=== PATIENT | female | born 1960 | race Hispanic/Latino ===

== ENCOUNTER 2020-06-29 09:24 | Observation (INO) | payer SELFPAY ==
[2020-06-29] MEDS ORDERED: ASPIRIN 325 MG TAB PO ONE (10:41)
[2020-06-29] MEDS ORDERED: GABAPENTIN 300 MG CAP PO ONE (10:53)
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
--- NOTE | 2020-06-29 11:18 | XRay Report ---
CHEST 1 VIEW INDICATION: Chest Pain. COMPARISON: None FINDINGS: Support devices: None. Heart: Within normal limits. Lungs/Pleura: No acute air space or interstitial disease. Additional findings: None. IMPRESSION: No acute findings. Signer Name: Lamine Soni Jr, MD Signed: 06/29/2020 11:14 AM Workstation Name: [id number]
[2020-06-29 11:30] LABS: Basophils # (Auto) 0.1 K/mm3 (0.0-0.1); Basophils % (Auto) 1.2 % (0.0-1.8); Eosinophils # (Auto) 0.2 K/mm3 (0.0-0.4); Hematocrit 43.8 % (30.3-42.9); Lymphocytes # (Auto) 2.2 K/mm3 (1.2-5.4); Mean Corpuscular HGB Conc 34 % (30-34); Mean Corpuscular Volume 89 fl (79-97); Monocytes # (Auto) 0.4 K/mm3 (0.0-0.8); Monocytes % (Auto) 4.8 % (0.0-7.3); Red Blood Count 4.94 M/mm3 (3.65-5.03); Red Cell Distribution Width 15.7 % (13.2-15.2)
[2020-06-29 11:31] LABS: INR 0.93 (0.87-1.13)
[2020-06-29 11:36] LABS: Chol/HDL Ratio 8.11 %
[2020-06-29 11:38] LABS: Alanine Aminotransferase 13 units/L (7-56); Albumin 4.5 g/dL (3.9-5); BUN/Creatinine Ratio 19; Blood Urea Nitrogen 17 mg/dL (7-17); Calcium 8.5 mg/dL (8.4-10.2); Hemolysis Index 3
[2020-06-29 12:18] VITALS: BP 138/88
[2020-06-29] MEDS ORDERED: ONDANSETRON 4 MG/2 ML INJ IV ONE (12:24)
[2020-06-29] MEDS ORDERED: HYDROmorphone 1 MG/1 ML INJ IV ONE (12:24)
[2020-06-29 12:35] LABS: Platelet Count 201 K/mm3 (140-440)
[2020-06-29 12:36] LABS: Free T4 (Free Thyroxine) < 0.10 ng/dL (0.76-1.46)
[2020-06-29] MEDS ORDERED: PANTOPRAZOLE 40 MG TAB PO ONE (13:16)
[2020-06-30] MEDS ORDERED: ASPIRIN 81 MG TAB CHEW PO SCH (10:00)
== END 2020-06-29 16:20 | disposition home or self-care (01) ==
LOC: ED 09:24 → 4A 13:08
PROVIDERS: ADMIT Internal Medicine; ATTEND Internal Medicine
DX: R07.89 Other chest pain (principal); E78.5 Hyperlipidemia, unspecified; E03.9 Hypothyroidism, unspecified; J44.9 Chronic obstructive pulmonary disease, unspecified; I10 Essential (primary) hypertension; F17.200 Nicotine dependence, unspecified, uncomplicated; Z91.14 Patient's other noncompliance with medication regimen; Z79.82 Long term (current) use of aspirin
CPT/HCPCS: 36415; 71045; 80053; 80061; 84439; 84443; 84484; 85025; 85610; 93005; 96374; 96375; 99285; G0378; J1170; J2405

== ENCOUNTER 2020-12-26 12:42 | Emergency (ER) | payer SELFPAY ==
--- NOTE | 2020-12-26 15:06 | Event Note ---
ED Screening Note Date of service: 12/26/20 Time: 15:03 ED Screening Note: 60-year-old female patient with history of hepatitis B and thyroid cancer presents to the emergency department with complaints of fever, myalgias, and syncope today. Patient states her temperature was 101 degrees at home yesterday. 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 No current steroid or antibiotic use. Patient states she has not taken her hepatitis B medications or her thyroid medications in several months. She is attributing her diffuse body aches to degenerative joint disease. States she passed out while she was at work earlier today. Hypertensive in triage. General: Awake, appropriately interactive, no acute distress. Neck: Supple. Full range of motion intact. Cardiovascular: Normal peripheral perfusion. Pulmonary: No respiratory distress. Patient is speaking normally without use of accessory muscles. Skin: No apparent rashes or lesions. Neurological: No facial asymmetry. Speech is clear. Follows commands. Patient is alert and oriented. Musculoskeletal: Moves all four extremities spontaneously with normal range of motion. Psych: Cooperative. Appropriate mood and affect. I have greeted and performed a focused rapid initial assessment of this patient. A comprehensive ED assessment and evaluation of the patient, analysis of all test results, and completion of the medical decision-making process will be conducted by additional ED providers. This initial assessment/diagnostic orders/clinical plan/treatment(s) is/are subject to change based on patients health status, clinical progression and re-assessment. Further treatment and workup at subsequent clinical provider's discretion. Patient/guardian urged not to elope from the ED as their condition may be serious if not clinically assessed and managed.
[2020-12-26 15:48] LABS: Basophils # (Auto) 0.1 K/mm3 (0.0-0.1); Basophils % (Auto) 1.3 % (0.0-1.8); Eosinophils # (Auto) 0.6 K/mm3 (0.0-0.4); Hematocrit 41.5 % (30.3-42.9); Hemoglobin 14.4 gm/dl (10.1-14.3); Lymphocytes # (Auto) 3.7 K/mm3 (1.2-5.4); Lymphocytes % (Auto) 40.4 % (13.4-35.0); Mean Corpuscular HGB Conc 35 % (30-34); Mean Corpuscular Volume 91 fl (79-97); Monocytes # (Auto) 0.3 K/mm3 (0.0-0.8); Monocytes % (Auto) 3.5 % (0.0-7.3); Red Blood Count 4.56 M/mm3 (3.65-5.03); Red Cell Distribution Width 14.6 % (13.2-15.2)
--- NOTE | 2020-12-26 15:49 | XRay Report ---
CHEST 2 VIEWS INDICATION / CLINICAL INFORMATION: syncope. COMPARISON: One view of the chest from 06/29/2020. FINDINGS: SUPPORT DEVICES: None. HEART / MEDIASTINUM: No significant abnormality. LUNGS / PLEURA: Clear lungs. No significant pleural effusion. No pneumothorax. ADDITIONAL FINDINGS: Moderate degenerative changes are present throughout the spine. IMPRESSION: 1. No acute abnormality of the chest. Signer Name: Cory Tucker MD Signed: 12/26/2020 3:24 PM Workstation Name: [email or web address]
[2020-12-26 16:03] LABS: Platelet Count 170 K/mm3 (140-440)
[2020-12-26 16:47] LABS: Alanine Aminotransferase 12 units/L (7-56); Albumin 4.6 g/dL (3.9-5); BUN/Creatinine Ratio 15; Blood Urea Nitrogen 16 mg/dL (7-17); Hemolysis Index 4
[2020-12-26] MEDS ORDERED: ONDANSETRON 4 MG/2 ML INJ IM ONE (23:34)
[2020-12-26] MEDS ORDERED: MORPHINE 4 MG/1 ML INJ IM ONE (23:34)
--- NOTE | 2020-12-26 23:39 | Emergency Department Report ---
ED General Adult HPI - General Chief complaint: Pain General Stated complaint: VOMITTING/NAUSEA/HEP B SYMPTOMS Time Seen by Provider: 12/26/20 18:23 Source: patient Mode of arrival: Ambulatory Limitations: No Limitations - History of Present Illness Initial comments: Patient is 60 years old female with history of degenerative disc disease and thyroid cancer. Patient stated that she did not see a doctor recently. Patient presented to the ER complaining of generalized body ache and joint pain for the last 2 to 3 days. Patient stated that she works as [employer] and she stand a lot in hot environment. Patient stated that she used to take gabapentin 600 mg three times a day and that usually help a lot with her pain but she is not having this medication anymore. Patient denied any headache, neck pain, nausea or vomiting. No focal weakness numbness or tingling sensation. Patient denied any chest pain or palpitation. - Related Data Previous Rx's Medication Instructions Recorded Last Taken Type Aspirin [Adult Aspirin] 81 mg PO DAILY #30 tablet. 06/29/20 Unknown Rx Elavil 150 mg PO DAILY #30 06/29/20 Unknown Rx Gabapentin 600 mg PO TID #30 06/29/20 Unknown Rx Levothyroxine 175 mcg PO DAILY #30 06/29/20 Unknown Rx Simvastatin 40 mg PO QHS #30 tablet 06/29/20 Unknown Rx amLODIPine 5 mg PO DAILY #30 tab 06/29/20 Unknown Rx Allergies Allergy/AdvReac Type Severity Reaction Status Date / Time cephalexin [From Keflex] Allergy Unknown Verified 06/29/20 10:21 ketorolac [From Toradol] Allergy Unknown Verified 06/29/20 11:33 morphine Allergy Unknown Verified 06/29/20 10:21 naproxen Allergy Unknown Verified 06/29/20 11:33 Penicillins Allergy Unknown Verified 06/29/20 10:21 tramadol [From Ultram] Allergy Unknown Verified 06/29/20 11:33 ED Review of Systems ROS: Stated complaint: VOMITTING/NAUSEA/HEP B SYMPTOMS Other details as noted in HPI Comment: All other systems reviewed and negative Constitutional: denies: chills, fever Respiratory: denies: cough, shortness of breath, SOB with exertion Cardiovascular: denies: chest pain, palpitations Gastrointestinal: denies: abdominal pain, nausea, vomiting Musculoskeletal: arthralgia, myalgia Neurological: denies: headache, weakness, numbness, paresthesias, confusion, abnormal gait ED Past Medical Hx - Past Medical History Hx Hypertension: Yes Hx COPD: Yes Additional medical history: Hypothyroidism Degenrativr Disc Disease - Surgical History Additional Surgical History: hysterectomy - Social History Smoking Status: Current Every Day Smoker Substance Use Type: None - Medications Home Medications: Home Medications Medication Instructions Recorded Confirmed Last Taken Type Aspirin [Adult Aspirin] 81 mg PO DAILY #30 tablet. 06/29/20 Unknown Rx Elavil 150 mg PO DAILY #30 06/29/20 Unknown Rx Gabapentin 600 mg PO TID #30 06/29/20 Unknown Rx Levothyroxine 175 mcg PO DAILY #30 06/29/20 Unknown Rx Simvastatin 40 mg PO QHS #30 tablet 06/29/20 Unknown Rx amLODIPine 5 mg PO DAILY #30 tab 06/29/20 Unknown Rx ED Physical Exam - General Limitations: No Limitations General appearance: alert, in no apparent distress - Head Head exam: Present: atraumatic, normocephalic, normal inspection - Eye Eye exam: Present: normal appearance, PERRL - ENT ENT exam: Present: normal exam, normal orophraynx, mucous membranes moist - Neck Neck exam: Present: normal inspection, full ROM. Absent: tenderness, meningismus - Respiratory Respiratory exam: Present: normal lung sounds bilaterally - Cardiovascular Cardiovascular Exam: Present: regular rate, normal rhythm, normal heart sounds - GI/Abdominal GI/Abdominal exam: Present: soft, normal bowel sounds. Absent: distended, tenderness, guarding, rebound, rigid, organomegaly, mass, bruit, pulsatile mass, hernia - Extremities Exam Extremities exam: Present: normal inspection, full ROM, normal capillary refill. Absent: tenderness - Back Exam Back exam: Present: normal inspection, full ROM. Absent: CVA tenderness (R), CVA tenderness (L) - Neurological Exam Neurological exam: Present: alert, oriented X3, CN II-XII intact - Psychiatric Psychiatric exam: Present: normal mood - Skin Skin exam: Present: warm, intact, normal color ED Course Vital Signs 12/26/20 12/27/20 13:59 00:20 Temperature 98.7 F 98.7 F Pulse Rate 65 69 Respiratory 18 16 Rate Blood Pressure 174/101 Blood Pressure 149/80 [Right] O2 Sat by Pulse 99 96 Oximetry ED Medical Decision Making - Lab Data Result diagrams: 12/26/20 15:05 04/12/21 15:05 - Radiology Data Radiology results: report reviewed - Medical Decision Making Patient is 60 years old female with history of degenerative disc disease and thyroid cancer. Patient stated that she did not see a doctor recently. Patient presented to the ER complaining of generalized body ache and joint pain for the last 2 to 3 days. Patient stated that she works as [employer] and she stand a lot in hot environment. Patient stated that she used to take gabapentin 600 mg three times a day and that usually help a lot with her pain but she is not having this medication anymore. Patient denied any headache, neck pain, nausea or vomiting. No focal weakness numbness or tingling sensation. Patient denied any chest pain or palpitation. Labs reviewed and showed CK of 750 which is consistent with patient history of heat exhaustion. Patient also found to have a TSH of 100 indicating severe hypothyroidism. Patient started on Synthroid and advised to follow-up with primary care physician in the next 2 to 3 days and to return to the ER if she develop any new symptoms. Critical care attestation.: If time is entered above; I have spent that time in minutes in the direct care of this critically ill patient, excluding procedure time. ED Disposition Clinical Impression: Acute pain, Hypothyroid Disposition: DC-01 TO HOME OR SELFCARE Is pt being admited?: No Condition: Stable Instructions: Hypothyroidism, Acute Pain, Adult Referrals: [facility] [Provider Group] - 3-5 Days
[2020-12-27 00:27] VITALS: BP 149/80
[2020-12-27 00:49] LABS: Free T4 (Free Thyroxine) 0.1 ng/dL (0.76-1.46)
[2020-12-27] MEDS ORDERED: GABAPENTIN 300 MG CAP PO ONE (01:26)
== END 2020-12-27 03:10 | disposition home or self-care (01) ==
LOC: ED 12:42
DX: E03.9 Hypothyroidism, unspecified (principal); F17.200 Nicotine dependence, unspecified, uncomplicated; I10 Essential (primary) hypertension; J44.9 Chronic obstructive pulmonary disease, unspecified; Z79.899 Other long term (current) drug therapy; Z88.0 Allergy status to penicillin; Z88.8 Allergy status to other drugs, medicaments and biological substances; Z90.710 Acquired absence of both cervix and uterus
CPT/HCPCS: 36415; 71046; 80053; 82550; 83735; 84100; 84439; 84443; 84484; 85025; 96372; 99284; J2270; J2405

== ENCOUNTER 2021-02-03 12:41 | Emergency (ER) | payer SELFPAY ==
[2021-02-03 13:07] VITALS: BP 118/76
--- NOTE | 2021-02-03 14:04 | XRay Report ---
CHEST 2 VIEWS INDICATION: cough. COMPARISON: 12/26/2020 FINDINGS: Support devices: None. Heart: Within normal limits. Lungs/pleura: No acute air space or interstitial disease. No pneumothorax. Additional findings: None. IMPRESSION: No acute findings. Signer Name: Lamine Soni Jr, MD Signed: 02/03/2021 2:00 PM Workstation Name: [id number]
--- NOTE | 2021-02-03 16:20 | Emergency Department Report ---
ED General Adult HPI - General Chief complaint: Upper Respiratory Infection Stated complaint: SOB/FEVER/WEAKNESS/CP/COUGH Time Seen by Provider: 02/03/21 13:42 Source: patient Mode of arrival: Ambulatory Limitations: No Limitations - History of Present Illness Initial comments: 60-year-old female patient presents with complaints of cough, fever, and chills x3 days. She states a history of COPD and asthma and believes she is having a COPD exacerbation. She states she has also been wheezing. No hemoptysis or shortness of breath or chest pain per patient. She does admit to a fever of 102. Patient also states she believes she has lost her sense of taste. - Related Data Previous Rx's Medication Instructions Recorded Last Taken Type Aspirin [Adult Aspirin] 81 mg PO DAILY #30 tablet. 06/29/20 Unknown Rx Elavil 150 mg PO DAILY #30 06/29/20 Unknown Rx Gabapentin 600 mg PO TID #30 06/29/20 Unknown Rx Levothyroxine 175 mcg PO DAILY #30 06/29/20 Unknown Rx Simvastatin 40 mg PO QHS #30 tablet 06/29/20 Unknown Rx amLODIPine 5 mg PO DAILY #30 tab 06/29/20 Unknown Rx Gabapentin [Neurontin] 600 mg PO Q8H #21 tablet 12/27/20 Unknown Rx Levothyroxine Sodium [Synthroid] 175 mcg PO DAILY #30 tablet 12/27/20 Unknown Rx Azithromycin [Zithromax Z-AKUA] 0 mg PO DAILY #6 tab 02/03/21 Unknown Rx Benzonatate 200 mg PO TID PRN #30 capsule 02/03/21 Unknown Rx Gabapentin 300 mg PO TID PRN #60 capsule 02/03/21 Unknown Rx Levothyroxine Sodium [Synthroid] 175 mcg PO QDAY 30 Days #30 tablet 02/03/21 Unknown Rx methylPREDNISolone [Medrol 4MG 4 mg PO QDAY #1 tab.ds.pk 02/03/21 Unknown Rx DOSEPAK (21 tabs)] Allergies Allergy/AdvReac Type Severity Reaction Status Date / Time cephalexin [From Keflex] Allergy Unknown Verified 06/29/20 10:21 ketorolac [From Toradol] Allergy Unknown Verified 06/29/20 11:33 morphine Allergy Unknown Verified 06/29/20 10:21 naproxen Allergy Unknown Verified 06/29/20 11:33 Penicillins Allergy Unknown Verified 06/29/20 10:21 tramadol [From Ultram] Allergy Unknown Verified 06/29/20 11:33 ED Review of Systems ROS: Stated complaint: SOB/FEVER/WEAKNESS/CP/COUGH Other details as noted in HPI Constitutional: chills, fever, malaise. denies: diaphoresis Respiratory: cough. denies: shortness of breath Cardiovascular: denies: chest pain Gastrointestinal: denies: abdominal pain, nausea, vomiting, diarrhea Hematological/Lymphatic: denies: swollen glands ED Past Medical Hx - Past Medical History Previous Medical History?: Yes Hx Hypertension: Yes Hx COPD: Yes Additional medical history: Hypothyroidism Degenrativr Disc Disease - Surgical History Past Surgical History?: Yes Additional Surgical History: hysterectomy - Social History Smoking Status: Current Every Day Smoker Substance Use Type: None - Medications Home Medications: Home Medications Medication Instructions Recorded Confirmed Last Taken Type Aspirin [Adult Aspirin] 81 mg PO DAILY #30 tablet. 06/29/20 Unknown Rx Elavil 150 mg PO DAILY #30 06/29/20 Unknown Rx Gabapentin 600 mg PO TID #30 06/29/20 Unknown Rx Levothyroxine 175 mcg PO DAILY #30 06/29/20 Unknown Rx Simvastatin 40 mg PO QHS #30 tablet 06/29/20 Unknown Rx amLODIPine 5 mg PO DAILY #30 tab 06/29/20 Unknown Rx Gabapentin [Neurontin] 600 mg PO Q8H #21 tablet 12/27/20 Unknown Rx Levothyroxine Sodium [Synthroid] 175 mcg PO DAILY #30 tablet 12/27/20 Unknown Rx Azithromycin [Zithromax Z-AKUA] 0 mg PO DAILY #6 tab 02/03/21 Unknown Rx Benzonatate 200 mg PO TID PRN #30 capsule 02/03/21 Unknown Rx Gabapentin 300 mg PO TID PRN #60 capsule 02/03/21 Unknown Rx Levothyroxine Sodium [Synthroid] 175 mcg PO QDAY 30 Days #30 tablet 02/03/21 Unknown Rx methylPREDNISolone [Medrol 4MG 4 mg PO QDAY #1 tab.ds.pk 02/03/21 Unknown Rx DOSEPAK (21 tabs)] ED Physical Exam - General Limitations: No Limitations General appearance: alert, in no apparent distress, obese - Head Head exam: Present: atraumatic, normocephalic - Eye Eye exam: Present: normal appearance - Neck Neck exam: Absent: tenderness - Respiratory Respiratory exam: Present: wheezes (Mild diffuse), rales (Mild right midlung), rhonchi (Diffuse). Absent: respiratory distress - Cardiovascular Cardiovascular Exam: Present: regular rate, normal rhythm. Absent: systolic murmur, diastolic murmur, rubs, gallop - Neurological Exam Neurological exam: Present: alert, oriented X3 - Psychiatric Psychiatric exam: Present: normal affect, normal mood - Skin Skin exam: Present: warm, dry, intact, normal color. Absent: rash ED Course Vital Signs 02/03/21 13:06 Temperature 98.5 F Pulse Rate 83 Respiratory 18 Rate Blood Pressure 118/76 [Right] O2 Sat by Pulse 96 Oximetry ED Medical Decision Making - Radiology Data Radiology results: report reviewed CHEST 2 VIEWS INDICATION: cough. COMPARISON: 12/26/2020 FINDINGS: Support devices: None. Heart: Within normal limits. Lungs/pleura: No acute air space or interstitial disease. No pneumothorax. Additional findings: None. IMPRESSION: No acute findings. - Medical Decision Making 60-year-old female patient presents with complaints of cough, fever, and chills x3 days. She states a history of COPD and asthma and believes she is having a COPD exacerbation. She states she has also been wheezing. No hemoptysis or shortness of breath or chest pain per patient. She does admit to a fever of 102. Patient also states she believes she has lost her sense of taste. Chest x-ray is normal. Patient has rhonchi, mild wheezing, and rales noted on exam. Will treat for acute bronchitis. Also recommend patient get Covid testing and self quarantine until her results are back. Her vitals are within normal limits, she is nontoxic-appearing, she is stable for discharge home. Strict return precautions were discussed in detail with patient who verbalizes understanding. Patient also to follow-up with her primary care doctor in 3 to 5 days. Critical care attestation.: If time is entered above; I have spent that time in minutes in the direct care of this critically ill patient, excluding procedure time. ED Disposition Clinical Impression: Acute exacerbation of chronic bronchitis, Medication refill Disposition: [id number]-01 TO HOME OR SELFCARE Is pt being admited?: No Condition: Stable Instructions: Chronic Bronchitis (ED), Acute Bronchitis, Adult, Chronic Obstructive Pulmonary Disease Prescriptions: Benzonatate 200 mg PO TID PRN #30 capsule PRN Reason: Cough Gabapentin 300 mg PO TID PRN #60 capsule PRN Reason: Pain , Severe (7-10) methylPREDNISolone [Medrol 4MG DOSEPAK (21 tabs)] 4 mg PO QDAY #1 tab.ds.pk Levothyroxine Sodium [Synthroid] 175 mcg PO QDAY 30 Days #30 tablet Azithromycin [Zithromax Z-AKUA] 0 mg PO DAILY #6 tab Referrals: [facility] [Provider Group] - 3-5 Days Forms: Work/School Release Form(ED)
== END 2021-02-03 16:20 | disposition home or self-care (01) ==
LOC: ED 12:41
DX: J20.9 Acute bronchitis, unspecified (principal); F17.200 Nicotine dependence, unspecified, uncomplicated; E03.9 Hypothyroidism, unspecified; I10 Essential (primary) hypertension; J44.9 Chronic obstructive pulmonary disease, unspecified; Z76.0 Encounter for issue of repeat prescription; Z88.8 Allergy status to other drugs, medicaments and biological substances; Z88.0 Allergy status to penicillin; Z79.899 Other long term (current) drug therapy; Z90.710 Acquired absence of both cervix and uterus
CPT/HCPCS: 71046

== ENCOUNTER 2021-04-11 08:37 | Inpatient (IN) | payer OTHER, SELFPAY ==
[2021-04-11] MEDS ORDERED: methylPREDNISolone Sod Succinate 125 MG/2 ML INJ IV ONE (10:22)
[2021-04-11] MEDS ORDERED: IPRATROPIUM 0.02% NEBU 2.5 ML IH ONE ×2 (10:22→13:56)
[2021-04-11] MEDS ORDERED: ALBUTEROL 2.5 MG/3 ML NEBU IH ONE ×2 (10:22→13:56)
--- NOTE | 2021-04-11 10:24 | Event Note ---
ED Screening Note ED Screening Note: Patient presents for exacerbation of her COPD that began last night She has associated productive cough with yellow sputum She denies any fever, nausea, vomiting, diarrhea she only uses inhalers at home and does not have a nebulizer machine She states that she is also concerned she may have a UTI as she has been having dysuria and odor to her urine Patient's initial sat 92% on room air, improved upon nasal cannula administration This initial assessment/diagnostic orders/clinical plan/treatment(s) is/are subject to change based on patients health status, clinical progression and re- assessment by fellow clinical providers in the ED. Further treatment and workup at subsequent clinical providers discretion. Patient/guardian urged not to elope from the ED as their condition may be serious if not clinically assessed and managed. Initial orders include: urine, xr, meds
--- NOTE | 2021-04-11 11:17 | XRay Report ---
CHEST 2 VIEWS INDICATION / CLINICAL INFORMATION: Shortness of breath, cough. COMPARISON: 02/03/2021, 12/26/2020. FINDINGS: SUPPORT DEVICES: None. HEART / MEDIASTINUM: No significant abnormality. LUNGS / PLEURA: There is a right upper medial lobe 1.8 x 1.4 cm density. Left lung is clear. No pneum othorax. ADDITIONAL FINDINGS: No significant additional findings. IMPRESSION: There is a 1.8 cm right upper medial lobe density. The appearance may reflect a pulmonary nodule/mass . A CT of the chest is recommended for further evaluation. Signer Name: Nate Collins MD Signed: 04/11/2021 11:13 AM Workstation Name: [id number]
[2021-04-11] MEDS ORDERED: MAGNESIUM SULFATE 2 GM/50 ML BAG IV ONE (11:20)
[2021-04-11] MEDS ORDERED: cloNIDine 0.2 MG TAB PO ONE (11:42)
[2021-04-11] MEDS ORDERED: ACETAMINOPHEN 325 MG TAB PO ONE (11:42)
[2021-04-11 12:14] LABS: Bacteria,Urine 2+ /HPF (Negative); Bilirubin,Urine NEG (Negative); Blood,Urine NEG (Negative); Color,Urine Yellow (Yellow); Mucus,Urine FEW /HPF; Protein,Urine <15 mg/dL mg/dL (Negative); Urobilinogen,Urine < 2.0 mg/dL (<2.0)
--- NOTE | 2021-04-11 13:54 | Emergency Department Report ---
ED Shortness of Breath HPI - General Chief Complaint: Dyspnea/Respdistress Stated Complaint: COPD/DIFF BREATHING Time Seen by Provider: 04/11/21 10:22 Source: patient Mode of arrival: Ambulatory Limitations: No Limitations - History of Present Illness Initial Comments: 60-year-old female, history of hypertension, COPD, not on home O2, presents to ED with shortness of breath since yesterday. She reports coughing, wheezing. States she used her inhaler, without relief. She denies any fever. Reports headache and chest tightness secondary to her coughing. Patient reports tobacco use. Reports she has not been vaccinated for COVID-19. MD Complaint: shortness of breath -: Last night Severity: moderate Consistency: constant Improves With: nothing Worsens With: exertion Known History Of: COPD Associated Symptoms: cough Treatments Prior to Arrival: bronchodilator - Related Data Home Oxygen Therapy: No Previous Rx's Medication Instructions Recorded Last Taken Type Aspirin [Adult Aspirin] 81 mg PO DAILY #30 tablet. 06/29/20 Unknown Rx Elavil 150 mg PO DAILY #30 06/29/20 Unknown Rx Gabapentin 600 mg PO TID #30 06/29/20 Unknown Rx Levothyroxine 175 mcg PO DAILY #30 06/29/20 Unknown Rx Simvastatin 40 mg PO QHS #30 tablet 06/29/20 Unknown Rx amLODIPine 5 mg PO DAILY #30 tab 06/29/20 Unknown Rx Gabapentin [Neurontin] 600 mg PO Q8H #21 tablet 12/27/20 Unknown Rx Levothyroxine Sodium [Synthroid] 175 mcg PO DAILY #30 tablet 12/27/20 Unknown Rx Azithromycin [Zithromax Z-AKUA] 0 mg PO DAILY #6 tab 02/03/21 Unknown Rx Benzonatate 200 mg PO TID PRN #30 capsule 02/03/21 Unknown Rx Gabapentin 300 mg PO TID PRN #60 capsule 02/03/21 Unknown Rx Levothyroxine Sodium [Synthroid] 175 mcg PO QDAY 30 Days #30 tablet 02/03/21 Unknown Rx methylPREDNISolone [Medrol 4MG 4 mg PO QDAY #1 tab.ds.pk 02/03/21 Unknown Rx DOSEPAK (21 tabs)] Allergies Allergy/AdvReac Type Severity Reaction Status Date / Time cephalexin [From Keflex] Allergy Unknown Verified 06/29/20 10:21 ketorolac [From Toradol] Allergy Unknown Verified 06/29/20 11:33 morphine Allergy Unknown Verified 06/29/20 10:21 naproxen Allergy Unknown Verified 06/29/20 11:33 Penicillins Allergy Unknown Verified 06/29/20 10:21 tramadol [From Ultram] Allergy Unknown Verified 06/29/20 11:33 ED Review of Systems ROS: Stated complaint: COPD/DIFF BREATHING Other details as noted in HPI Comment: All other systems reviewed and negative Constitutional: denies: fever Respiratory: cough, shortness of breath, wheezing Cardiovascular: chest pain Neurological: headache ED Past Medical Hx - Past Medical History Previous Medical History?: Yes Hx Hypertension: Yes Hx COPD: Yes Additional medical history: Hypothyroidism Degenrativr Disc Disease - Surgical History Past Surgical History?: Yes Additional Surgical History: hysterectomy - Social History Smoking Status: Current Every Day Smoker Substance Use Type: None - Medications Home Medications: Home Medications Medication Instructions Recorded Confirmed Last Taken Type Aspirin [Adult Aspirin] 81 mg PO DAILY #30 tablet. 06/29/20 Unknown Rx Elavil 150 mg PO DAILY #30 06/29/20 Unknown Rx Gabapentin 600 mg PO TID #30 06/29/20 Unknown Rx Levothyroxine 175 mcg PO DAILY #30 06/29/20 Unknown Rx Simvastatin 40 mg PO QHS #30 tablet 06/29/20 Unknown Rx amLODIPine 5 mg PO DAILY #30 tab 06/29/20 Unknown Rx Gabapentin [Neurontin] 600 mg PO Q8H #21 tablet 12/27/20 Unknown Rx Levothyroxine Sodium [Synthroid] 175 mcg PO DAILY #30 tablet 12/27/20 Unknown Rx Azithromycin [Zithromax Z-AKUA] 0 mg PO DAILY #6 tab 02/03/21 Unknown Rx Benzonatate 200 mg PO TID PRN #30 capsule 02/03/21 Unknown Rx Gabapentin 300 mg PO TID PRN #60 capsule 02/03/21 Unknown Rx Levothyroxine Sodium [Synthroid] 175 mcg PO QDAY 30 Days #30 tablet 02/03/21 Unknown Rx methylPREDNISolone [Medrol 4MG 4 mg PO QDAY #1 tab.ds.pk 02/03/21 Unknown Rx DOSEPAK (21 tabs)] ED Physical Exam - General Limitations: No Limitations General appearance: alert, in no apparent distress - Head Head exam: Present: atraumatic, normocephalic - Eye Eye exam: Present: normal appearance, EOMI - ENT ENT exam: Present: mucous membranes moist - Neck Neck exam: Present: normal inspection - Respiratory Respiratory exam: Present: wheezes - Cardiovascular Cardiovascular Exam: Present: regular rate, normal rhythm - GI/Abdominal GI/Abdominal exam: Present: soft. Absent: distended, tenderness - Extremities Exam Extremities exam: Present: normal inspection - Neurological Exam Neurological exam: Present: alert, oriented X3 - Psychiatric Psychiatric exam: Present: normal affect, normal mood - Skin Skin exam: Present: warm, dry, intact, normal color ED Course Vital Signs 04/11/21 04/11/21 04/11/21 08:52 11:35 11:45 Temperature 98.4 F Pulse Rate 79 61 60 Pulse Rate [ Anterior Bilateral Throughout] Respiratory 24 12 16 Rate Respiratory Rate [Anterior Bilateral Throughout] Blood Pressure 195/98 200/102 O2 Sat by Pulse 92 98 99 Oximetry 04/11/21 04/11/21 04/11/21 11:50 11:59 12:01 Temperature Pulse Rate 61 61 Pulse Rate [ Anterior Bilateral Throughout] Respiratory 17 Rate Respiratory Rate [Anterior Bilateral Throughout] Blood Pressure 200/102 203/99 O2 Sat by Pulse 98 98 Oximetry 04/11/21 04/11/21 04/11/21 12:04 12:13 12:15 Temperature 99.4 F Pulse Rate 62 Pulse Rate [ 74 Anterior Bilateral Throughout] Respiratory 16 Rate Respiratory 22 Rate [Anterior Bilateral Throughout] Blood Pressure 203/99 O2 Sat by Pulse 97 Oximetry 04/11/21 04/11/21 04/11/21 12:31 12:45 13:01 Temperature Pulse Rate 62 63 63 Pulse Rate [ Anterior Bilateral Throughout] Respiratory 17 13 13 Rate Respiratory Rate [Anterior Bilateral Throughout] Blood Pressure 203/99 203/99 110/65 O2 Sat by Pulse 93 93 93 Oximetry 04/11/21 04/11/21 04/11/21 13:15 13:31 13:45 Temperature Pulse Rate 68 68 67 Pulse Rate [ Anterior Bilateral Throughout] Respiratory 16 11 L 15 Rate Respiratory Rate [Anterior Bilateral Throughout] Blood Pressure 110/65 203/99 203/99 O2 Sat by Pulse 95 94 94 Oximetry 04/11/21 04/11/21 04/11/21 14:00 14:15 14:31 Temperature Pulse Rate 66 68 61 Pulse Rate [ Anterior Bilateral Throughout] Respiratory 16 18 14 Rate Respiratory Rate [Anterior Bilateral Throughout] Blood Pressure 106/63 106/63 106/63 O2 Sat by Pulse 99 97 96 Oximetry 04/11/21 04/11/21 04/11/21 14:45 15:01 15:11 Temperature Pulse Rate 61 62 Pulse Rate [ 64 Anterior Bilateral Throughout] Respiratory 13 13 Rate Respiratory 16 Rate [Anterior Bilateral Throughout] Blood Pressure 106/63 104/59 O2 Sat by Pulse 96 95 Oximetry 04/11/21 04/11/21 04/11/21 15:15 15:31 15:45 Temperature Pulse Rate 66 61 67 Pulse Rate [ Anterior Bilateral Throughout] Respiratory 12 15 14 Rate Respiratory Rate [Anterior Bilateral Throughout] Blood Pressure 104/59 104/59 104/59 O2 Sat by Pulse 98 98 96 Oximetry 04/11/21 04/11/21 04/11/21 16:01 16:15 16:31 Temperature Pulse Rate 79 82 86 Pulse Rate [ Anterior Bilateral Throughout] Respiratory 18 14 18 Rate Respiratory Rate [Anterior Bilateral Throughout] Blood Pressure 119/68 119/68 119/68 O2 Sat by Pulse 96 94 95 Oximetry 04/11/21 04/11/21 04/11/21 16:46 17:01 17:15 Temperature Pulse Rate 77 66 68 Pulse Rate [ Anterior Bilateral Throughout] Respiratory 15 15 15 Rate Respiratory Rate [Anterior Bilateral Throughout] Blood Pressure 119/68 116/52 116/52 O2 Sat by Pulse 97 97 96 Oximetry 04/11/21 04/11/21 04/11/21 17:31 17:45 18:01 Temperature Pulse Rate 65 66 79 Pulse Rate [ Anterior Bilateral Throughout] Respiratory 15 14 16 Rate Respiratory Rate [Anterior Bilateral Throughout] Blood Pressure 119/68 119/68 104/56 O2 Sat by Pulse 96 97 96 Oximetry 04/11/21 04/11/21 04/11/21 18:15 18:21 18:31 Temperature Pulse Rate 64 65 64 Pulse Rate [ Anterior Bilateral Throughout] Respiratory 15 17 15 Rate Respiratory Rate [Anterior Bilateral Throughout] Blood Pressure 104/56 104/56 109/59 O2 Sat by Pulse 97 96 95 Oximetry 04/11/21 04/11/21 04/11/21 18:35 18:45 19:01 Temperature 98.2 F Pulse Rate 64 63 Pulse Rate [ Anterior Bilateral Throughout] Respiratory 14 15 Rate Respiratory Rate [Anterior Bilateral Throughout] Blood Pressure 109/59 104/56 O2 Sat by Pulse 96 95 Oximetry 04/11/21 04/11/21 04/11/21 19:15 19:31 19:45 Temperature Pulse Rate 64 67 63 Pulse Rate [ Anterior Bilateral Throughout] Respiratory 15 17 14 Rate Respiratory Rate [Anterior Bilateral Throughout] Blood Pressure 104/56 104/56 104/56 O2 Sat by Pulse 94 91 92 Oximetry 04/11/21 04/11/21 04/11/21 20:01 20:15 20:31 Temperature Pulse Rate 62 61 62 Pulse Rate [ Anterior Bilateral Throughout] Respiratory 17 18 15 Rate Respiratory Rate [Anterior Bilateral Throughout] Blood Pressure 150/78 150/78 150/78 O2 Sat by Pulse 96 96 97 Oximetry 04/11/21 04/11/21 04/11/21 20:45 21:01 21:15 Temperature Pulse Rate 60 59 L 57 L Pulse Rate [ Anterior Bilateral Throughout] Respiratory 14 15 14 Rate Respiratory Rate [Anterior Bilateral Throughout] Blood Pressure 150/78 118/62 150/78 O2 Sat by Pulse 96 95 95 Oximetry 04/11/21 04/11/21 04/11/21 21:31 21:45 22:01 Temperature Pulse Rate 56 L 59 L 79 Pulse Rate [ Anterior Bilateral Throughout] Respiratory 13 17 19 Rate Respiratory Rate [Anterior Bilateral Throughout] Blood Pressure 150/78 118/62 105/49 O2 Sat by Pulse 95 95 99 Oximetry 04/11/21 04/11/21 04/11/21 22:17 22:31 22:45 Temperature Pulse Rate 79 57 L 58 L Pulse Rate [ Anterior Bilateral Throughout] Respiratory 31 H 16 15 Rate Respiratory Rate [Anterior Bilateral Throughout] Blood Pressure 105/49 130/63 105/49 O2 Sat by Pulse 97 98 97 Oximetry 04/11/21 04/11/21 04/11/21 23:01 23:15 23:31 Temperature Pulse Rate 56 L 56 L 56 L Pulse Rate [ Anterior Bilateral Throughout] Respiratory 15 21 15 Rate Respiratory Rate [Anterior Bilateral Throughout] Blood Pressure 123/57 123/57 123/57 O2 Sat by Pulse 96 97 96 Oximetry 04/11/21 04/12/21 04/12/21 23:45 00:01 00:15 Temperature Pulse Rate 63 64 60 Pulse Rate [ Anterior Bilateral Throughout] Respiratory 18 15 15 Rate Respiratory Rate [Anterior Bilateral Throughout] Blood Pressure 123/57 120/60 120/60 O2 Sat by Pulse 98 99 98 Oximetry 04/12/21 04/12/21 04/12/21 00:31 00:45 01:01 Temperature Pulse Rate 60 64 63 Pulse Rate [ Anterior Bilateral Throughout] Respiratory 15 18 19 Rate Respiratory Rate [Anterior Bilateral Throughout] Blood Pressure 120/60 120/60 125/61 O2 Sat by Pulse 97 95 96 Oximetry 04/12/21 04/12/21 04/12/21 01:15 01:17 01:31 Temperature Pulse Rate 55 L 54 L Pulse Rate [ Anterior Bilateral Throughout] Respiratory 15 20 13 Rate Respiratory Rate [Anterior Bilateral Throughout] Blood Pressure 125/61 125/61 O2 Sat by Pulse 97 98 Oximetry 04/12/21 04/12/21 04/12/21 01:46 02:00 02:16 Temperature Pulse Rate 55 L 55 L 59 L Pulse Rate [ Anterior Bilateral Throughout] Respiratory 12 13 13 Rate Respiratory Rate [Anterior Bilateral Throughout] Blood Pressure 125/61 125/61 125/61 O2 Sat by Pulse 97 97 96 Oximetry 04/12/21 04/12/21 04/12/21 02:30 02:46 03:00 Temperature Pulse Rate 58 L 53 L 55 L Pulse Rate [ Anterior Bilateral Throughout] Respiratory 15 12 13 Rate Respiratory Rate [Anterior Bilateral Throughout] Blood Pressure 125/61 125/61 121/65 O2 Sat by Pulse 97 98 98 Oximetry 04/12/21 04/12/21 04/12/21 03:16 03:30 03:46 Temperature Pulse Rate 52 L 59 L 69 Pulse Rate [ Anterior Bilateral Throughout] Respiratory 13 15 16 Rate Respiratory Rate [Anterior Bilateral Throughout] Blood Pressure 121/65 121/65 173/77 O2 Sat by Pulse 97 97 96 Oximetry 04/12/21 04/12/21 04/12/21 04:00 04:16 04:30 Temperature Pulse Rate 61 58 L 57 L Pulse Rate [ Anterior Bilateral Throughout] Respiratory 15 14 15 Rate Respiratory Rate [Anterior Bilateral Throughout] Blood Pressure 129/84 121/65 121/65 O2 Sat by Pulse 97 97 97 Oximetry 04/12/21 04/12/21 04/12/21 04:46 05:00 05:16 Temperature Pulse Rate 58 L 58 L 68 Pulse Rate [ Anterior Bilateral Throughout] Respiratory 13 15 14 Rate Respiratory Rate [Anterior Bilateral Throughout] Blood Pressure 121/65 106/60 106/60 O2 Sat by Pulse 97 98 97 Oximetry 04/12/21 04/12/21 05:30 05:43 Temperature Pulse Rate 65 Pulse Rate [ Anterior Bilateral Throughout] Respiratory 15 20 Rate Respiratory Rate [Anterior Bilateral Throughout] Blood Pressure 106/60 O2 Sat by Pulse 99 Oximetry ED Medical Decision Making - Lab Data Result diagrams: 04/11/21 14:10 04/12/21 05:05 - Radiology Data Radiology results: report reviewed, image reviewed - Medical Decision Making 60-year-old female presents to ED with COPD exacerbation. Patient given 1 hour albuterol/Atrovent nebulizer treatment along with magnesium sulfate and Solu- Medrol. Patient still has coarse wheezing throughout, with O2 sats of 90% on room air. Another breathing treatment has been given. Chest x-ray negative for any infiltrates. There is evidence of a possible right upper lobe nodule or mass. Blood pressure elevated. Patient noncompliant with any BP meds. Clonidine given here in the ED, blood pressure has improved. Patient will be admitted to hospitalist, Dr. Johnson, for further management. - Differential Diagnosis Pneumonia, COPD, CHF Critical Care Time: Yes Critical care time in (mins) excluding proc time.: 35 Critical care attestation.: If time is entered above; I have spent that time in minutes in the direct care of this critically ill patient, excluding procedure time. Critical Care Time: 35 min ED Disposition Clinical Impression: Acute exacerbation of chronic obstructive pulmonary disease, Uncontrolled hypertension, UTI (urinary tract infection) Disposition: OP ADMIT IP TO THIS HOSP Is pt being admited?: Yes Condition: Stable Time of Disposition: 14:04
[2021-04-11 14:50] LABS: BUN/Creatinine Ratio 14; Blood Urea Nitrogen 13 mg/dL (7-17); Calcium 8.7 mg/dL (8.4-10.2); Hemolysis Index 8
[2021-04-11 15:09] LABS: Basophils # (Auto) 0.1 K/mm3 (0.0-0.1); Basophils % (Auto) 0.4 % (0.0-1.8); Eosinophils # (Auto) 0.2 K/mm3 (0.0-0.4); Eosinophils % (Auto) 1.7 % (0.0-4.3); Hematocrit 42.1 % (30.3-42.9); Hemoglobin 13.9 gm/dl (10.1-14.3); Lymphocytes # (Auto) 1.1 K/mm3 (1.2-5.4); Mean Corpuscular HGB Conc 33 % (30-34); Mean Corpuscular Volume 89 fl (79-97); Monocytes # (Auto) 0.3 K/mm3 (0.0-0.8); Platelet Count 168 K/mm3 (140-440); Red Blood Count 4.74 M/mm3 (3.65-5.03); Red Cell Distribution Width 15.6 % (13.2-15.2)
[2021-04-11] MEDS: NITROFURANTOIN MONOHYD/M-CRYST 100 MG CAP PO SCH ×2 (16:14→23:37)
[2021-04-11] MEDS ORDERED: BENZONATATE 100 MG CAP PO PRN (22:07)
[2021-04-11] MEDS ORDERED: ONDANSETRON 4 MG/2 ML INJ IV PRN (22:09)
[2021-04-11] MEDS ORDERED: METOCLOPRAMIDE 10 MG/2 ML INJ IV PRN (22:09)
[2021-04-11] MEDS ORDERED: ACETAMINOPHEN 325 MG TAB PO PRN (22:09)
[2021-04-11] MEDS ORDERED: HYDROmorphone 1 MG/1 ML INJ IV PRN (22:09)
[2021-04-11] MEDS ORDERED: IPRATROPIUM/ALBUTEROL SULFATE 3 ML AMPUL.NEB IH PRN (22:13)
--- NOTE | 2021-04-11 22:19 | History and Physical Report ---
History of Present Illness Date of examination: 04/11/21 Date of admission: 04/11/21 14:04 Chief complaint: Shortness of breath for 2 days History of present illness: 61-year-old female with history of hypertension, COPD not on home oxygen comes in for increasing wheezing and cough and sputum for last 2 to 3 days. No fever or chills. No exposure to coronavirus. Patient has chest tightness and severe wheezing. Cough productive of mucoid sputum. No fever. Patient is not vaccinated with Covid vaccine. - Past Medical History Previous Medical History?: Yes --Hypertension: Yes --COPD: Yes Additional medical history: Hypothyroidism Degenrativr Disc Disease - Surgical History Past Surgical History?: Yes Additional Surgical History: hysterectomy - Social History Smoking Status: Current Every Day Smoker Substance Use Type: None - Medications Home Medications: Home Medications Medication Instructions Recorded Confirmed Last Taken Type Aspirin [Adult Aspirin] 81 mg PO DAILY #30 tablet. 06/29/20 Unknown Rx Elavil 150 mg PO DAILY #30 06/29/20 Unknown Rx Gabapentin 600 mg PO TID #30 06/29/20 Unknown Rx Levothyroxine 175 mcg PO DAILY #30 06/29/20 Unknown Rx Simvastatin 40 mg PO QHS #30 tablet 06/29/20 Unknown Rx amLODIPine 5 mg PO DAILY #30 tab 06/29/20 Unknown Rx Gabapentin [Neurontin] 600 mg PO Q8H #21 tablet 12/27/20 Unknown Rx Levothyroxine Sodium [Synthroid] 175 mcg PO DAILY #30 tablet 12/27/20 Unknown Rx Azithromycin [Zithromax Z-AKUA] 0 mg PO DAILY #6 tab 02/03/21 Unknown Rx Benzonatate 200 mg PO TID PRN #30 capsule 02/03/21 Unknown Rx Gabapentin 300 mg PO TID PRN #60 capsule 02/03/21 Unknown Rx Levothyroxine Sodium [Synthroid] 175 mcg PO QDAY 30 Days #30 tablet 02/03/21 Unknown Rx methylPREDNISolone [Medrol 4MG 4 mg PO QDAY #1 tab.ds.pk 02/03/21 Unknown Rx DOSEPAK (21 tabs)] Review of Systems ROS: Stated complaint: COPD/DIFF BREATHING Other details as noted in HPI Comment: All other systems reviewed and negative Constitutional: denies: fever Respiratory: cough, shortness of breath, wheezing Cardiovascular: chest pain Neurological: headache Medications and Allergies Allergies Allergy/AdvReac Type Severity Reaction Status Date / Time cephalexin [From Keflex] Allergy Unknown Verified 06/29/20 10:21 ketorolac [From Toradol] Allergy Unknown Verified 06/29/20 11:33 morphine Allergy Unknown Verified 06/29/20 10:21 naproxen Allergy Unknown Verified 06/29/20 11:33 Penicillins Allergy Unknown Verified 06/29/20 10:21 tramadol [From Ultram] Allergy Unknown Verified 06/29/20 11:33 Home Medications Medication Instructions Recorded Confirmed Last Taken Type Aspirin [Adult Aspirin] 81 mg PO DAILY #30 tablet. 06/29/20 Unknown Rx Elavil 150 mg PO DAILY #30 06/29/20 Unknown Rx Gabapentin 600 mg PO TID #30 06/29/20 Unknown Rx Levothyroxine 175 mcg PO DAILY #30 06/29/20 Unknown Rx Simvastatin 40 mg PO QHS #30 tablet 06/29/20 Unknown Rx amLODIPine 5 mg PO DAILY #30 tab 06/29/20 Unknown Rx Gabapentin [Neurontin] 600 mg PO Q8H #21 tablet 12/27/20 Unknown Rx Levothyroxine Sodium [Synthroid] 175 mcg PO DAILY #30 tablet 12/27/20 Unknown Rx Azithromycin [Zithromax Z-AKUA] 0 mg PO DAILY #6 tab 02/03/21 Unknown Rx Benzonatate 200 mg PO TID PRN #30 capsule 02/03/21 Unknown Rx Gabapentin 300 mg PO TID PRN #60 capsule 02/03/21 Unknown Rx Levothyroxine Sodium [Synthroid] 175 mcg PO QDAY 30 Days #30 tablet 02/03/21 Unknown Rx methylPREDNISolone [Medrol 4MG 4 mg PO QDAY #1 tab.ds.pk 02/03/21 Unknown Rx DOSEPAK (21 tabs)] Active Meds: Active Medications Nitrofurantoin Macrocrystals (Nitrofurantoin Monohyd/M-Cryst 100 Mg Cap) 100 mg PO Q12HR CHANTAL Last Admin: 04/11/21 16:14 Dose: 100 mg Documented by: Exam - Constitutional Vitals: Temp Pulse Resp BP Pulse Ox 98.2 F 64 15 104/56 97 04/11/21 18:35 04/11/21 18:15 04/11/21 18:15 04/11/21 18:15 04/11/21 18:15 General appearance: Present: severe distress, well-nourished - EENT Eyes: Present: PERRL ENT: hearing intact, clear oral mucosa - Neck Neck: Present: supple, normal ROM - Respiratory Respiratory effort: normal Respiratory: bilateral: CTA, rhonchi, wheezing - Cardiovascular Heart rate: 78 Rhythm: regular Heart Sounds: Present: S1 & S2. Absent: rub, click - Extremities Extremities: no ischemia, pulses intact, pulses symmetrical, No edema Peripheral Pulses: within normal limits - Abdominal General gastrointestinal: Present: soft, non-tender, non-distended, normal bowel sounds Female genitourinary: Present: normal - Integumentary Integumentary: Present: clear, warm, dry - Musculoskeletal Musculoskeletal: gait normal, strength equal bilaterally - Psychiatric Psychiatric: appropriate mood/affect, intact judgment & insight - Neurologic Neurologic: CNII-XII intact, moves all extremities - Allied Health Allied health notes reviewed: nursing, case management Results - Labs CBC & Chem 7: 04/12/21 05:05 04/12/21 05:05 Labs: Laboratory Last Values WBC 13.2 K/mm3 (4.5-11.0) H 04/11/21 14:10 RBC 4.74 M/mm3 (3.65-5.03) 04/11/21 14:10 Hgb 13.9 gm/dl (10.1-14.3) 04/11/21 14:10 Hct 42.1 % (30.3-42.9) 04/11/21 14:10 MCV 89 fl (79-97) 04/11/21 14:10 MCH 29 pg (28-32) 04/11/21 14:10 MCHC 33 % (30-34) 04/11/21 14:10 RDW 15.6 % (13.2-15.2) H 04/11/21 14:10 Plt Count 168 K/mm3 (140-440) 04/11/21 14:10 Lymph % (Auto) 8.0 % (13.4-35.0) L 04/11/21 14:10 [place] % (Auto) 2.0 % (0.0-7.3) 04/11/21 14:10 Eos % (Auto) 1.7 % (0.0-4.3) 04/11/21 14:10 Baso % (Auto) 0.4 % (0.0-1.8) 04/11/21 14:10 Lymph # (Auto) 1.1 K/mm3 (1.2-5.4) L 04/11/21 14:10 [place] # (Auto) 0.3 K/mm3 (0.0-0.8) 04/11/21 14:10 Eos # (Auto) 0.2 K/mm3 (0.0-0.4) 04/11/21 14:10 Baso # (Auto) 0.1 K/mm3 (0.0-0.1) 04/11/21 14:10 Seg Neutrophils % 87.9 % (40.0-70.0) H 04/11/21 14:10 Seg Neutrophils # 11.6 K/mm3 (1.8-7.7) H 04/11/21 14:10 Sodium 138 mmol/L (137-145) 04/11/21 14:10 Potassium 3.5 mmol/L (3.6-5.0) L 04/11/21 14:10 Chloride 97.2 mmol/L (98-107) L 04/11/21 14:10 Carbon Dioxide 24 mmol/L (22-30) 04/11/21 14:10 Anion Gap 20 mmol/L 04/11/21 14:10 BUN 13 mg/dL (7-17) 04/11/21 14:10 Creatinine 0.9 mg/dL (0.6-1.2) 04/11/21 14:10 Estimated GFR > 60 ml/min 04/11/21 14:10 BUN/Creatinine Ratio 14 % 04/11/21 14:10 Glucose 192 mg/dL (65-100) H 04/11/21 14:10 Calcium 8.7 mg/dL (8.4-10.2) 04/11/21 14:10 Urine Color Yellow (Yellow) 04/11/21 Unknown Urine Turbidity Clear (Clear) 04/11/21 Unknown Urine pH 5.0 (5.0-7.0) 04/11/21 Unknown Ur Specific [place] 1.011 (1.003-1.030) 04/11/21 Unknown Urine Protein <15 mg/dl mg/dL (Negative) 04/11/21 Unknown Urine Glucose (UA) Neg mg/dL (Negative) 04/11/21 Unknown Urine Ketones Neg mg/dL (Negative) 04/11/21 Unknown Urine Blood Neg (Negative) 04/11/21 Unknown Urine Nitrite Neg (Negative) 04/11/21 Unknown Urine Bilirubin Neg (Negative) 04/11/21 Unknown Urine Urobilinogen < 2.0 mg/dL (<2.0) 04/11/21 Unknown Ur Leukocyte Esterase Neg (Negative) 04/11/21 Unknown Urine WBC (Auto) 13.0 /HPF (0.0-6.0) H 04/11/21 Unknown Urine RBC (Auto) 3.0 /HPF (0.0-6.0) 04/11/21 Unknown U Epithel Cells (Auto) 1.0 /HPF (0-13.0) 04/11/21 Unknown Urine Bacteria (Auto) 2+ /HPF (Negative) 04/11/21 Unknown Urine Mucus Few /HPF 04/11/21 Unknown Short CBC 04/11/21 04/12/21 Range/Units 14:10 05:05 WBC 13.2 H 12.4 H (4.5-11.0) K/mm3 Hgb 13.9 14.1 (10.1-14.3) gm/dl Hct 42.1 42.0 (30.3-42.9) % Plt Count 168 182 (140-440) K/mm3 BMP 04/11/21 04/12/21 14:10 05:05 Sodium 138 136 L Potassium 3.5 L 4.3 D Chloride 97.2 L 95.8 L Carbon Dioxide 24 23 BUN 13 15 Creatinine 0.9 0.9 Glucose 192 H 191 H Calcium 8.7 8.9 Liver Function 04/12/21 Range/Units 05:05 Total Bilirubin < 0.20 (0.1-1.2) mg/dL AST 17 (5-40) units/L ALT 8 (7-56) units/L Alkaline Phosphatase 94 (35-129) units/L Albumin 4.0 (3.9-5) g/dL Urine 04/11/21 Range/Units Unknown Urine Color Yellow (Yellow) Urine pH 5.0 (5.0-7.0) Ur Specific [place] 1.011 (1.003-1.030) Urine Protein <15 mg/dl (Negative) mg/dL Urine Glucose (UA) Neg (Negative) mg/dL - Imaging and Cardiology Chest x-ray: report reviewed Imaging and Cardiology: Chest x-ray There is a 1.8 cm right upper medial lobe density The appearance may reflect a pulmonary nodule/mass A CT of the chest is recommended for further evaluation. Assessment and Plan Advance Directives: Yes (Full code) Plan of care discussed with patient/family: Yes - Patient Problems (1) Acute respiratory failure with hypoxia Current Visit: Yes Status: Acute Plan to address problem: Patient was hypoxic initially in the emergency room Patient on 50% Ventimask Multiple nebulizer treatments IV mag given Continue Ventimask/BiPAP as necessary Intubation if necessary (2) Acute exacerbation of chronic obstructive pulmonary disease Current Visit: Yes Status: Acute Plan to address problem: Patient initiated on duo nebs [id number] and as needed, IV antibiotics in the form of Levaquin and IV Solu-Medrol at 80 mg every 8 (3) Pulmonary nodule Current Visit: Yes Status: Acute Plan to address problem: CT scan of the chest with contrast to evaluate the pulmonary nodule (4) HTN (hypertension) Current Visit: No Status: Chronic Qualifiers: Hypertension type: primary hypertension Qualified Code(s): I10 - Essential (primary) hypertension Plan to address problem: Continue antihypertensives (5) Hyperlipidemia Current Visit: No Status: Chronic Qualifiers: Hyperlipidemia type: mixed hyperlipidemia Qualified Code(s): E78.2 - Mixed hyperlipidemia Plan to address problem: Continue statins (6) Hypothyroidism Current Visit: No Status: Chronic Qualifiers: Hypothyroidism type: acquired Qualified Code(s): E03.9 - Hypothyroidism, unspecified Plan to address problem: Continue Synthroid and check TSH (7) Hypokalemia Current Visit: Yes Status: Acute Plan to address problem: Mild supplemented (8) T2DM (type 2 diabetes mellitus) Current Visit: Yes Status: Chronic Qualifiers: 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
[2021-04-11] MEDS: methylPREDNISolone Sod Succinate 40 MG/1 ML INJ IV SCH (23:38)
[2021-04-12] MEDS ORDERED: ALBUTEROL 2.5 MG/3 ML NEBU IH PRN (02:11)
[2021-04-12] MEDS: oxyCODONE /ACETAMINOPHEN 5-325MG TAB PO PRN ×2 (05:43→18:18)
[2021-04-12] MEDS: methylPREDNISolone Sod Succinate 40 MG/1 ML INJ IV SCH ×3 (05:59→21:49)
[2021-04-12] MEDS: LEVOTHYROXINE 75 MCG TAB PO SCH (06:18)
[2021-04-12] MEDS: LEVOTHYROXINE 100 MCG TAB PO SCH (06:18)
[2021-04-12 06:21] LABS: Hemoglobin 14.1 gm/dl (10.1-14.3); Red Cell Distribution Width 15.6 % (13.2-15.2)
[2021-04-12 06:37] LABS: Mean Corpuscular HGB Conc 34 % (30-34); Mean Corpuscular Volume 88 fl (79-97); Monocytes % (Auto) 0.8 % (0.0-7.3); Platelet Count 182 K/mm3 (140-440); Red Blood Count 4.77 M/mm3 (3.65-5.03)
[2021-04-12 06:38] LABS: Alanine Aminotransferase 8 units/L (7-56); BUN/Creatinine Ratio 17; Blood Urea Nitrogen 15 mg/dL (7-17); Calcium 8.9 mg/dL (8.4-10.2); Hemolysis Index 4
[2021-04-12 07:32] LABS: Band Neutrophils # (Manual) 0.1 K/mm3; Total Cells Counted 100
[2021-04-12 07:33] LABS: Platelet Estimate Consistent w Auto; RBC Morphology Normal
[2021-04-12] MEDS: GABAPENTIN 300 MG CAP PO SCH ×3 (08:34→20:05)
--- NOTE | 2021-04-12 08:48 | Progress Note ---
Assessment and Plan Assessment and plan: -- Acute respiratory failure with hypoxia Current Visit: Yes Status: Acute Patient was hypoxic initially in the emergency room Patient on 50% Ventimask Multiple nebulizer treatments IV mag given Continue Ventimask/BiPAP as necessary Intubation if necessary --Acute exacerbation of chronic obstructive pulmonary disease Current Visit: Yes Status: Acute Patient initiated on duo nebs [id number] and as needed, IV antibiotics in the form of Levaquin and IV Solu-Medrol at 80 mg every 8 -- Pulmonary nodule Current Visit: Yes Status: Acute CT scan of the chest with contrast to evaluate the pulmonary nodule --HTN (hypertension) Current Visit: No Status: Chronic Continue antihypertensives --Hyperlipidemia Current Visit: No Status: Chronic Continue statins --Hypothyroidism Current Visit: No Status: Chronic Continue Synthroid and check TSH --Hypokalemia Current Visit: Yes Status: Acute Mild supplemented --T2DM (type 2 diabetes mellitus) Current Visit: Yes Status: Chronic No history given Check A1c Accu-Cheks before meals and at bedtime and coverage --Diabetic peripheral neuropathy; Current Visit: Yes Status: Chronic Continue Neurontin and supportive care --UTI (urinary tract infection) Current Visit: Yes Status: Acute Patient is allergic to Levaquin, DC Levaquin Cannot give Rocephin as patient is allergic to cephalexin Will start Bactrim DS 1 tablet twice a day Follow cultures adjust as needed --Obesity; BMI 33.8 Current Visit: Yes Status: Chronic Patient needs diet modification exercise as tolerated and weight reduction, When medically stable --DVT prophylaxis Current Visit: Yes Status: Acute On Lovenox and GI prophylaxis We will closely monitor the patient and adjust the management as needed Plan of care reviewed with the patient and the nurse History Interval history: I have seen and examined the patient at the bedside Patient's chart and medications reviewed Patient admitted with COPD exacerbation Continues to have wheeze Slightly better than yesterday Vital signs noted Hospitalist Physical - Constitutional Vitals: Temp Pulse Resp BP Pulse Ox 98.2 F 57 L 14 106/60 95 04/11/21 18:35 04/12/21 06:30 04/12/21 06:30 04/12/21 06:30 04/12/21 06:30 General appearance: Present: mild distress, well-nourished, obese - EENT Eyes: Present: PERRL, EOM intact - Neck Neck: Present: supple, normal ROM - Respiratory Respiratory effort: normal Respiratory: bilateral: diminished, negative: rales, rhonchi, wheezing - Cardiovascular Rhythm: regular Heart Sounds: Present: S1 & S2 - Extremities Extremities: no ischemia, No edema - Abdominal General gastrointestinal: soft, non-tender, non-distended, normal bowel sounds - Integumentary Integumentary: Present: clear, warm - Psychiatric Psychiatric: appropriate mood/affect, cooperative - Neurologic Neurologic: CNII-XII intact, moves all extremities Results - Labs CBC & Chem 7: 04/12/21 05:05 04/12/21 05:05 Labs: Laboratory Last Values WBC 12.4 K/mm3 (4.5-11.0) H 04/12/21 05:05 RBC 4.77 M/mm3 (3.65-5.03) 04/12/21 05:05 Hgb 14.1 gm/dl (10.1-14.3) 04/12/21 05:05 Hct 42.0 % (30.3-42.9) 04/12/21 05:05 MCV 88 fl (79-97) 04/12/21 05:05 MCH 30 pg (28-32) 04/12/21 05:05 MCHC 34 % (30-34) 04/12/21 05:05 RDW 15.6 % (13.2-15.2) H 04/12/21 05:05 Plt Count 182 K/mm3 (140-440) 04/12/21 05:05 Lymph % (Auto) 8.0 % (13.4-35.0) L 04/11/21 14:10 [place] % (Auto) 0.8 % (0.0-7.3) 04/12/21 05:05 Eos % (Auto) 0.0 % (0.0-4.3) 04/12/21 05:05 Baso % (Auto) 0.4 % (0.0-1.8) 04/11/21 14:10 Lymph # (Auto) 1.1 K/mm3 (1.2-5.4) L 04/11/21 14:10 [place] # (Auto) 0.3 K/mm3 (0.0-0.8) 04/11/21 14:10 Eos # (Auto) 0.2 K/mm3 (0.0-0.4) 04/11/21 14:10 Baso # (Auto) 0.1 K/mm3 (0.0-0.1) 04/11/21 14:10 Add Manual Diff Complete 04/12/21 05:05 Total Counted 100 04/12/21 05:05 Seg Neutrophils % Transition Advisor 04/12/21 05:05 Seg Neuts % (Manual) 93.0 % (40.0-70.0) H 04/12/21 05:05 Band Neutrophils % 1.0 % 04/12/21 05:05 Lymphocytes % (Manual) 3.0 % (13.4-35.0) L 04/12/21 05:05 Monocytes % (Manual) 1.0 % (0.0-7.3) 04/12/21 05:05 Eosinophils % (Manual) 1.0 % (0.0-4.3) 04/12/21 05:05 Basophils % (Manual) 1.0 % (0.0-1.8) 04/12/21 05:05 Nucleated RBC % Not Reportable 04/12/21 05:05 Seg Neutrophils # 11.5 K/mm3 (1.8-7.7) H 04/12/21 05:05 Seg Neutrophils # Man 11.5 K/mm3 (1.8-7.7) H 04/12/21 05:05 Band Neutrophils # 0.1 K/mm3 04/12/21 05:05 Lymphocytes # (Manual) 0.4 K/mm3 (1.2-5.4) L 04/12/21 05:05 Abs React Lymphs (Man) 0.0 K/mm3 04/12/21 05:05 Monocytes # (Manual) 0.1 K/mm3 (0.0-0.8) 04/12/21 05:05 Eosinophils # (Manual) 0.1 K/mm3 (0.0-0.4) 04/12/21 05:05 Basophils # (Manual) 0.1 K/mm3 (0.0-0.1) 04/12/21 05:05 Metamyelocytes # 0.0 K/mm3 04/12/21 05:05 Myelocytes # 0.0 K/mm3 04/12/21 05:05 Promyelocytes # 0.0 K/mm3 04/12/21 05:05 Blast Cells # 0.0 K/mm3 04/12/21 05:05 WBC Morphology Not Reportable 04/12/21 05:05 Hypersegmented Neuts Not Reportable 04/12/21 05:05 Hyposegmented Neuts Not Reportable 04/12/21 05:05 Hypogranular Neuts Not Reportable 04/12/21 05:05 Smudge Cells Not Reportable 04/12/21 05:05 Toxic Granulation Not Reportable 04/12/21 05:05 Toxic Vacuolation Not Reportable 04/12/21 05:05 Dohle Bodies Not Reportable 04/12/21 05:05 Pelger-Huet Anomaly Not Reportable 04/12/21 05:05 Carmen Rods Not Reportable 04/12/21 05:05 Platelet Estimate Consistent w auto 04/12/21 05:05 Clumped Platelets Not Reportable 04/12/21 05:05 Plt Clumps, EDTA Not Reportable 04/12/21 05:05 Large Platelets Not Reportable 04/12/21 05:05 Giant Platelets Not Reportable 04/12/21 05:05 Platelet Satelliting Not Reportable 04/12/21 05:05 Plt Morphology Comment Not Reportable 04/12/21 05:05 RBC Morphology Normal 04/12/21 05:05 Dimorphic RBCs Not Reportable 04/12/21 05:05 Polychromasia Not Reportable 04/12/21 05:05 Hypochromasia Not Reportable 04/12/21 05:05 Poikilocytosis Not Reportable 04/12/21 05:05 Anisocytosis Not Reportable 04/12/21 05:05 Microcytosis Not Reportable 04/12/21 05:05 Macrocytosis Not Reportable 04/12/21 05:05 Spherocytes Not Reportable 04/12/21 05:05 Pappenheimer Bodies Not Reportable 04/12/21 05:05 Sickle Cells Not Reportable 04/12/21 05:05 Target Cells Not Reportable 04/12/21 05:05 Tear Drop Cells Not Reportable 04/12/21 05:05 Ovalocytes Not Reportable 04/12/21 05:05 Helmet Cells Not Reportable 04/12/21 05:05 Patino-Neligh Bodies Not Reportable 04/12/21 05:05 Rhine Rings Not Reportable 04/12/21 05:05 Panda Cells Not Reportable 04/12/21 05:05 Bite Cells Not Reportable 04/12/21 05:05 Crenated Cell Not Reportable 04/12/21 05:05 Elliptocytes Not Reportable 04/12/21 05:05 Acanthocytes (Spur) Not Reportable 04/12/21 05:05 Rouleaux Not Reportable 04/12/21 05:05 Hemoglobin C Crystals Not Reportable 04/12/21 05:05 Schistocytes Not Reportable 04/12/21 05:05 Malaria parasites Not Reportable 04/12/21 05:05 Nicholas Bodies Not Reportable 04/12/21 05:05 Hem Pathologist Commnt No 04/12/21 05:05 Sodium 136 mmol/L (137-145) L 04/12/21 05:05 Potassium 4.3 mmol/L (3.6-5.0) D 04/12/21 05:05 Chloride 95.8 mmol/L (98-107) L 04/12/21 05:05 Carbon Dioxide 23 mmol/L (22-30) 04/12/21 05:05 Anion Gap 22 mmol/L 04/12/21 05:05 BUN 15 mg/dL (7-17) 04/12/21 05:05 Creatinine 0.9 mg/dL (0.6-1.2) 04/12/21 05:05 Estimated GFR > 60 ml/min 04/12/21 05:05 BUN/Creatinine Ratio 17 % 04/12/21 05:05 Glucose 191 mg/dL (65-100) H 04/12/21 05:05 Hemoglobin A1c 6.2 % (4-6) H 04/12/21 05:05 Calcium 8.9 mg/dL (8.4-10.2) 04/12/21 05:05 Total Bilirubin < 0.20 mg/dL (0.1-1.2) 04/12/21 05:05 AST 17 units/L (5-40) 04/12/21 05:05 ALT 8 units/L (7-56) 04/12/21 05:05 Alkaline Phosphatase 94 units/L (35-129) 04/12/21 05:05 Total Protein 6.9 g/dL (6.3-8.2) 04/12/21 05:05 Albumin 4.0 g/dL (3.9-5) 04/12/21 05:05 Albumin/Globulin Ratio 1.4 % 04/12/21 05:05 Urine Color Yellow (Yellow) 04/11/21 Unknown Urine Turbidity Clear (Clear) 04/11/21 Unknown Urine pH 5.0 (5.0-7.0) 04/11/21 Unknown Ur Specific [place] 1.011 (1.003-1.030) 04/11/21 Unknown Urine Protein <15 mg/dl mg/dL (Negative) 04/11/21 Unknown Urine Glucose (UA) Neg mg/dL (Negative) 04/11/21 Unknown Urine Ketones Neg mg/dL (Negative) 04/11/21 Unknown Urine Blood Neg (Negative) 04/11/21 Unknown Urine Nitrite Neg (Negative) 04/11/21 Unknown Urine Bilirubin Neg (Negative) 04/11/21 Unknown Urine Urobilinogen < 2.0 mg/dL (<2.0) 04/11/21 Unknown Ur Leukocyte Esterase Neg (Negative) 04/11/21 Unknown Urine WBC (Auto) 13.0 /HPF (0.0-6.0) H 04/11/21 Unknown Urine RBC (Auto) 3.0 /HPF (0.0-6.0) 04/11/21 Unknown U Epithel Cells (Auto) 1.0 /HPF (0-13.0) 04/11/21 Unknown Urine Bacteria (Auto) 2+ /HPF (Negative) 04/11/21 Unknown Urine Mucus Few /HPF 04/11/21 Unknown Active Medications - Current Medications Current Medications: Generic Name Dose Route Start Last Admin Trade Name Freq PRN Reason Stop Dose Admin Acetaminophen 650 mg 04/11/21 22:09 Acetaminophen 325 Mg Tab PO Q4H PRN Pain MILD(1-3)/Fever >100.5/GARCIA Albuterol 2.5 mg 04/12/21 02:11 Albuterol 2.5 Mg/3 Ml Nebu IH Q3HRT PRN Shortness Of Breath Albuterol/Ipratropium 1 ampul 04/12/21 08:00 Ipratropium/Albuterol Sulfate 3 Ml Ampul.Neb IH QIDRT CHANTAL Amitriptyline HCl 150 mg 04/12/21 10:00 Amitriptyline 25 Mg Tab PO DAILY CHANTAL Amlodipine Besylate 5 mg 04/12/21 10:00 Amlodipine 5 Mg Tab PO DAILY [facility] Aspirin 81 mg 04/12/21 10:00 Aspirin Ec 81 Mg Tab PO DAILY [facility] Benzonatate 200 mg 04/11/21 22:07 Benzonatate 100 Mg Cap PO TID PRN Cough Famotidine 20 mg 04/12/21 10:00 Famotidine 20 Mg Tab PO BID [facility] Gabapentin 600 mg 04/12/21 08:00 04/12/21 08:34 Gabapentin 300 Mg Cap PO 600 mg TID [facility] Administration Heparin Sodium (Porcine) 5,000 unit 04/12/21 10:00 Heparin 5,000 Unit/1 Ml Vial SUB-Q Q12HR [facility] Hydromorphone HCl 0.5 mg 04/11/21 22:09 04/12/21 00:47 Hydromorphone 1 Mg/1 Ml Inj IV 0.5 mg Q3H PRN Administration Pain , Severe (7-10) Sodium Chloride 1,000 mls @ 42 mls/hr 04/11/21 22:15 Nacl 0.9% 1000 Ml IV DIRECT [facility] Levofloxacin/Dextrose 750 mg in 150 mls @ 100 mls/hr 04/12/21 10:00 Levaquin 750mg/150ml IV 04/16/21 12:59 Q24HR [facility] Protocol Levothyroxine Sodium 100 mcg 04/12/21 06:00 04/12/21 06:18 Levothyroxine 100 Mcg Tab PO 100 mcg DAILY@0600 [facility] Administration Levothyroxine Sodium 75 mcg 04/12/21 06:00 04/12/21 06:18 Levothyroxine 75 Mcg Tab PO 75 mcg DAILY@0600 [facility] Administration Methylprednisolone Sodium Succinate 80 mg 04/11/21 23:00 04/12/21 05:59 Methylprednisolone Sod Succinate 40 Mg/1 Ml Inj IV 80 mg Q8HR [facility] Administration Metoclopramide HCl 10 mg 04/11/21 22:09 Metoclopramide 10 Mg/2 Ml Inj IV Q6H PRN Nausea And Vomiting Ondansetron HCl 4 mg 04/11/21 22:09 Ondansetron 4 Mg/2 Ml Inj IV Q3H PRN Nausea And Vomiting Oxycodone/Acetaminophen 1 tab 04/11/21 22:09 04/12/21 05:43 Oxycodone /Acetaminophen 5-325mg Tab PO 1 tab Q6H PRN Administration Pain, Moderate (4-6) Pravastatin Sodium 80 mg 04/12/21 22:00 Pravastatin 80 Mg Tab PO QHS CHANTAL Sodium Chloride 10 ml 04/12/21 10:00 Sodium Chloride 0.9% 10 Ml Flush Syringe IV BID CHANTAL Sodium Chloride 10 ml 04/11/21 22:09 Sodium Chloride 0.9% 10 Ml Flush Syringe IV PRN PRN LINE FLUSH
--- NOTE | 2021-04-12 09:08 | Cat Scan Report ---
CT CHEST WITH AND WITHOUT CONTRAST INDICATION / CLINICAL INFORMATION: Pulmonary nodule-right upper lobe OMNI 300 100 ML. TECHNIQUE: Axial CT images were obtained through the chest before and after 100 cc IV contrast. Sagittal and cor onal reformatted images. All CT scans at this location are performed using CT dose reduction for ALAR A by means of automated exposure control. COMPARISON: Chest x-ray performed yesterday FINDINGS: HEART: Heart size is normal with mild to moderate coronary artery calcifications. No pericardial abno rmality. THORACIC AORTA: Mild atherosclerotic calcification without acute abnormality. MEDIASTINUM and YAAKOV: No pathologic mediastinal adenopathy. A few paratracheal lymph nodes are identi fied measuring up to 0.9 cm in short axis. The esophagus and tracheobronchial tree are unremarkable. LUNGS: A 1.5 cm soft tissue density mass is identified in the medial right upper lobe. The remainder of the lungs are clear. No significant parenchymal disease or acute infiltrate. No additional nodules are detected. PLEURA: No significant pleural effusion. No pneumothorax. SKELETAL SYSTEM: Moderate to severe degenerative changes are noted in the lower cervical spine and lo wer thoracic spine. No acute injury or suspicious bony lesion is detected. UPPER ABDOMEN: A 1.5 cm left adrenal mass is identified with internal density measuring 2 Hounsfield units consistent with an adrenal adenoma. ADDITIONAL FINDINGS: None. IMPRESSION: 1.5 cm right upper lobe mass is identified as described. A neoplastic process cannot be excluded. I b elieve this lesion is too central for CT-guided percutaneous biopsy. Consider correlation with PET/CT . Signer Name: Lamine Soni Jr, MD Signed: 04/12/2021 9:03 AM Workstation Name: [id number]
[2021-04-12] MEDS: SULFAMETHOXAZOLE/TRIMETHOPRIM 800/160MG DS TAB PO SCH ×2 (09:42→21:48)
[2021-04-12] MEDS: ASPIRIN EC 81 MG TAB PO SCH (09:42)
[2021-04-12] MEDS: FAMOTIDINE 20 MG TAB PO SCH ×2 (09:43→21:49)
[2021-04-12] MEDS: amLODIPine 5 MG TAB PO SCH (09:43)
[2021-04-12] MEDS: HEPARIN 5,000 UNIT/1 ML VIAL SUB-Q SCH ×2 (09:43→21:49)
[2021-04-12] MEDS ORDERED: AMITRIPTYLINE 25 MG TAB PO SCH (10:00)
[2021-04-12] MEDS ORDERED: FAMOTIDINE 20 MG/2 ML INJ IV SCH (10:00)
[2021-04-12] MEDS: IPRATROPIUM/ALBUTEROL SULFATE 3 ML AMPUL.NEB IH SCH ×4 (10:35→21:05)
[2021-04-12] MEDS: PRAVASTATIN 80 MG TAB PO SCH (21:48)
[2021-04-12] MEDS: AMITRIPTYLINE 25 MG TAB PO SCH (22:57)
[2021-04-13] MEDS: methylPREDNISolone Sod Succinate 40 MG/1 ML INJ IV SCH ×3 (06:36→21:19)
[2021-04-13] MEDS: LEVOTHYROXINE 100 MCG TAB PO SCH (06:36)
[2021-04-13] MEDS: LEVOTHYROXINE 75 MCG TAB PO SCH (06:36)
[2021-04-13] MEDS: IPRATROPIUM/ALBUTEROL SULFATE 3 ML AMPUL.NEB IH SCH ×4 (08:51→21:12)
[2021-04-13] MEDS: HEPARIN 5,000 UNIT/1 ML VIAL SUB-Q SCH ×2 (09:23→21:20)
[2021-04-13] MEDS: FAMOTIDINE 20 MG TAB PO SCH ×2 (09:23→21:20)
[2021-04-13] MEDS: ASPIRIN EC 81 MG TAB PO SCH (09:24)
[2021-04-13] MEDS: GABAPENTIN 300 MG CAP PO SCH ×3 (09:24→20:04)
[2021-04-13] MEDS: SULFAMETHOXAZOLE/TRIMETHOPRIM 800/160MG DS TAB PO SCH ×2 (09:24→21:20)
[2021-04-13] MEDS: amLODIPine 5 MG TAB PO SCH (09:24)
--- NOTE | 2021-04-13 09:41 | Progress Note ---
Assessment and Plan Assessment and plan: -- Acute respiratory failure with hypoxia Current Visit: Yes Status: Acute Patient was hypoxic on arrival placed on 50% Ventimask Received multiple nebulizer treatments with mild improvement Continue oxygen titrate O2 sats to more than 90% Ventimask/BiPAP as needed Home O2 evaluation upon discharge --Acute exacerbation of chronic obstructive pulmonary disease Current Visit: Yes Status: Acute Patient initiated on duo nebs steroids IV Solu-Medrol tapering doses and supportive care -- Pulmonary nodule Current Visit: Yes Status: Acute CT scan of the chest with contrast to evaluate the pulmonary nodule Further evaluation as outpatient Consult pulmonary as needed --HTN (hypertension) moderate control Current Visit: No Status: Chronic Continue antihypertensives As needed medications he has patient's routine --Hyperlipidemia Current Visit: No Status: Chronic Continue statins --Hypothyroidism Current Visit: No Status: Chronic Continue Synthroid and check TSH --Hypokalemia Current Visit: Yes Status: Acute Mild supplemented --T2DM (type 2 diabetes mellitus) Current Visit: Yes Status: Chronic No history given, Check A1c Accu-Cheks before meals and at bedtime and coverage --Diabetic peripheral neuropathy; Current Visit: Yes Status: Chronic Continue Neurontin and supportive care --UTI (urinary tract infection) Current Visit: Yes Status: Acute Patient allergic to Levaquin and Rocephin Will treat with Bactrim DS 1 tablet twice a day Follow cultures adjust as needed --Obesity; BMI 33.8 Current Visit: Yes Status: Chronic Patient needs diet modification exercise as tolerated and weight reduction, When medically stable --DVT prophylaxis Current Visit: Yes Status: Acute On Lovenox and GI prophylaxis DC planning per case management; Patient is homeless at senior living May return to senior living upon discharge We will closely monitor the patient and adjust the management as needed Plan of care reviewed with the patient and the nurse 04/13/2021; Patient admitted with acute exacerbation of COPD Continue current regimen, tapering dose of steroids If no improvement,Consult pulmonary as needed Possible discharge in 1 to 2 days if stable History Interval history: I have seen and examined the patient at the bedside Patient's chart and medications reviewed Patient continues to have shortness of breath and wheezing Vital signs noted Hospitalist Physical - Constitutional Vitals: Temp Pulse Resp BP Pulse Ox 97.9 F 85 20 130/69 98 04/13/21 05:04 04/13/21 08:51 04/13/21 08:51 04/13/21 05:04 04/13/21 08:55 General appearance: Present: mild distress, well-nourished, obese - EENT Eyes: Present: PERRL, EOM intact - Neck Neck: Present: supple, normal ROM - Respiratory Respiratory effort: normal Respiratory: bilateral: diminished, rhonchi, negative: rales, wheezing - Cardiovascular Rhythm: regular Heart Sounds: Present: S1 & S2 - Extremities Extremities: no ischemia, No edema - Abdominal General gastrointestinal: soft, non-tender, non-distended, normal bowel sounds - Integumentary Integumentary: Present: clear, warm - Psychiatric Psychiatric: appropriate mood/affect, cooperative - Neurologic Neurologic: CNII-XII intact, moves all extremities Results - Labs CBC & Chem 7: 04/12/21 05:05 04/12/21 05:05 Labs: Laboratory Last Values WBC 12.4 K/mm3 (4.5-11.0) H 04/12/21 05:05 RBC 4.77 M/mm3 (3.65-5.03) 04/12/21 05:05 Hgb 14.1 gm/dl (10.1-14.3) 04/12/21 05:05 Hct 42.0 % (30.3-42.9) 04/12/21 05:05 MCV 88 fl (79-97) 04/12/21 05:05 MCH 30 pg (28-32) 04/12/21 05:05 MCHC 34 % (30-34) 04/12/21 05:05 RDW 15.6 % (13.2-15.2) H 04/12/21 05:05 Plt Count 182 K/mm3 (140-440) 04/12/21 05:05 Lymph % (Auto) 8.0 % (13.4-35.0) L 04/11/21 14:10 Wilkes % (Auto) 0.8 % (0.0-7.3) 04/12/21 05:05 Eos % (Auto) 0.0 % (0.0-4.3) 04/12/21 05:05 Baso % (Auto) 0.4 % (0.0-1.8) 04/11/21 14:10 Lymph # (Auto) 1.1 K/mm3 (1.2-5.4) L 04/11/21 14:10 Wilkes # (Auto) 0.3 K/mm3 (0.0-0.8) 04/11/21 14:10 Eos # (Auto) 0.2 K/mm3 (0.0-0.4) 04/11/21 14:10 Baso # (Auto) 0.1 K/mm3 (0.0-0.1) 04/11/21 14:10 Add Manual Diff Complete 04/12/21 05:05 Total Counted 100 04/12/21 05:05 Seg Neutrophils % Software Integration Developer 04/12/21 05:05 Seg Neuts % (Manual) 93.0 % (40.0-70.0) H 04/12/21 05:05 Band Neutrophils % 1.0 % 04/12/21 05:05 Lymphocytes % (Manual) 3.0 % (13.4-35.0) L 04/12/21 05:05 Monocytes % (Manual) 1.0 % (0.0-7.3) 04/12/21 05:05 Eosinophils % (Manual) 1.0 % (0.0-4.3) 04/12/21 05:05 Basophils % (Manual) 1.0 % (0.0-1.8) 04/12/21 05:05 Nucleated RBC % Not Reportable 04/12/21 05:05 Seg Neutrophils # 11.5 K/mm3 (1.8-7.7) H 04/12/21 05:05 Seg Neutrophils # Man 11.5 K/mm3 (1.8-7.7) H 04/12/21 05:05 Band Neutrophils # 0.1 K/mm3 04/12/21 05:05 Lymphocytes # (Manual) 0.4 K/mm3 (1.2-5.4) L 04/12/21 05:05 Abs React Lymphs (Man) 0.0 K/mm3 04/12/21 05:05 Monocytes # (Manual) 0.1 K/mm3 (0.0-0.8) 04/12/21 05:05 Eosinophils # (Manual) 0.1 K/mm3 (0.0-0.4) 04/12/21 05:05 Basophils # (Manual) 0.1 K/mm3 (0.0-0.1) 04/12/21 05:05 Metamyelocytes # 0.0 K/mm3 04/12/21 05:05 Myelocytes # 0.0 K/mm3 04/12/21 05:05 Promyelocytes # 0.0 K/mm3 04/12/21 05:05 Blast Cells # 0.0 K/mm3 04/12/21 05:05 WBC Morphology Not Reportable 04/12/21 05:05 Hypersegmented Neuts Not Reportable 04/12/21 05:05 Hyposegmented Neuts Not Reportable 04/12/21 05:05 Hypogranular Neuts Not Reportable 04/12/21 05:05 Smudge Cells Not Reportable 04/12/21 05:05 Toxic Granulation Not Reportable 04/12/21 05:05 Toxic Vacuolation Not Reportable 04/12/21 05:05 Dohle Bodies Not Reportable 04/12/21 05:05 Pelger-Huet Anomaly Not Reportable 04/12/21 05:05 Carmen Rods Not Reportable 04/12/21 05:05 Platelet Estimate Consistent w auto 04/12/21 05:05 Clumped Platelets Not Reportable 04/12/21 05:05 Plt Clumps, EDTA Not Reportable 04/12/21 05:05 Large Platelets Not Reportable 04/12/21 05:05 Giant Platelets Not Reportable 04/12/21 05:05 Platelet Satelliting Not Reportable 04/12/21 05:05 Plt Morphology Comment Not Reportable 04/12/21 05:05 RBC Morphology Normal 04/12/21 05:05 Dimorphic RBCs Not Reportable 04/12/21 05:05 Polychromasia Not Reportable 04/12/21 05:05 Hypochromasia Not Reportable 04/12/21 05:05 Poikilocytosis Not Reportable 04/12/21 05:05 Anisocytosis Not Reportable 04/12/21 05:05 Microcytosis Not Reportable 04/12/21 05:05 Macrocytosis Not Reportable 04/12/21 05:05 Spherocytes Not Reportable 04/12/21 05:05 Pappenheimer Bodies Not Reportable 04/12/21 05:05 Sickle Cells Not Reportable 04/12/21 05:05 Target Cells Not Reportable 04/12/21 05:05 Tear Drop Cells Not Reportable 04/12/21 05:05 Ovalocytes Not Reportable 04/12/21 05:05 Helmet Cells Not Reportable 04/12/21 05:05 [place] Bodies Not Reportable 04/12/21 05:05 [place] Rings Not Reportable 04/12/21 05:05 Panda Cells Not Reportable 04/12/21 05:05 Bite Cells Not Reportable 04/12/21 05:05 Crenated Cell Not Reportable 04/12/21 05:05 Elliptocytes Not Reportable 04/12/21 05:05 Acanthocytes (Spur) Not Reportable 04/12/21 05:05 Rouleaux Not Reportable 04/12/21 05:05 Hemoglobin C Crystals Not Reportable 04/12/21 05:05 Schistocytes Not Reportable 04/12/21 05:05 Malaria parasites Not Reportable 04/12/21 05:05 Nicholas Bodies Not Reportable 04/12/21 05:05 Hem Pathologist Commnt No 04/12/21 05:05 Sodium 136 mmol/L (137-145) L 04/12/21 05:05 Potassium 4.3 mmol/L (3.6-5.0) D 04/12/21 05:05 Chloride 95.8 mmol/L (98-107) L 04/12/21 05:05 Carbon Dioxide 23 mmol/L (22-30) 04/12/21 05:05 Anion Gap 22 mmol/L 04/12/21 05:05 BUN 15 mg/dL (7-17) 04/12/21 05:05 Creatinine 0.9 mg/dL (0.6-1.2) 04/12/21 05:05 Estimated GFR > 60 ml/min 04/12/21 05:05 BUN/Creatinine Ratio 17 % 04/12/21 05:05 Glucose 191 mg/dL (65-100) H 04/12/21 05:05 Hemoglobin A1c 6.2 % (4-6) H 04/12/21 05:05 Calcium 8.9 mg/dL (8.4-10.2) 04/12/21 05:05 Total Bilirubin < 0.20 mg/dL (0.1-1.2) 04/12/21 05:05 AST 17 units/L (5-40) 04/12/21 05:05 ALT 8 units/L (7-56) 04/12/21 05:05 Alkaline Phosphatase 94 units/L (35-129) 04/12/21 05:05 Total Protein 6.9 g/dL (6.3-8.2) 04/12/21 05:05 Albumin 4.0 g/dL (3.9-5) 04/12/21 05:05 Albumin/Globulin Ratio 1.4 % 04/12/21 05:05 Urine Color Yellow (Yellow) 04/11/21 Unknown Urine Turbidity Clear (Clear) 04/11/21 Unknown Urine pH 5.0 (5.0-7.0) 04/11/21 Unknown Ur Specific [place] 1.011 (1.003-1.030) 04/11/21 Unknown Urine Protein <15 mg/dl mg/dL (Negative) 04/11/21 Unknown Urine Glucose (UA) Neg mg/dL (Negative) 04/11/21 Unknown Urine Ketones Neg mg/dL (Negative) 04/11/21 Unknown Urine Blood Neg (Negative) 04/11/21 Unknown Urine Nitrite Neg (Negative) 04/11/21 Unknown Urine Bilirubin Neg (Negative) 04/11/21 Unknown Urine Urobilinogen < 2.0 mg/dL (<2.0) 04/11/21 Unknown Ur Leukocyte Esterase Neg (Negative) 04/11/21 Unknown Urine WBC (Auto) 13.0 /HPF (0.0-6.0) H 04/11/21 Unknown Urine RBC (Auto) 3.0 /HPF (0.0-6.0) 04/11/21 Unknown U Epithel Cells (Auto) 1.0 /HPF (0-13.0) 04/11/21 Unknown Urine Bacteria (Auto) 2+ /HPF (Negative) 04/11/21 Unknown Urine Mucus Few /HPF 04/11/21 Unknown Velázquez/IV: Voiding Method Toilet Active Medications - Current Medications Current Medications: Generic Name Dose Route Start Last Admin Trade Name Freq PRN Reason Stop Dose Admin Acetaminophen 650 mg 04/11/21 22:09 Acetaminophen 325 Mg Tab PO Q4H PRN Pain MILD(1-3)/Fever >100.5/GARCIA Albuterol 2.5 mg 04/12/21 02:11 Albuterol 2.5 Mg/3 Ml Nebu IH Q3HRT PRN Shortness Of Breath Albuterol/Ipratropium 1 ampul 04/12/21 08:00 04/13/21 08:51 Ipratropium/Albuterol Sulfate 3 Ml Ampul.Neb IH 1 ampul QIDRT CHANTAL Administration Amitriptyline HCl 150 mg 04/12/21 22:00 04/12/21 22:57 Amitriptyline 25 Mg Tab PO 150 mg QHS CHANTAL Administration Amlodipine Besylate 5 mg 04/12/21 10:00 04/13/21 09:24 Amlodipine 5 Mg Tab PO 5 mg DAILY CHANTAL Administration Aspirin 81 mg 04/12/21 10:00 04/13/21 09:24 Aspirin Ec 81 Mg Tab PO 81 mg DAILY CHANTAL Administration Benzonatate 200 mg 04/11/21 22:07 Benzonatate 100 Mg Cap PO TID PRN Cough Famotidine 20 mg 04/12/21 10:00 04/13/21 09:23 Famotidine 20 Mg Tab PO 20 mg BID CHANTAL Administration Gabapentin 600 mg 04/12/21 08:00 04/13/21 09:24 Gabapentin 300 Mg Cap PO 600 mg TID CHANTAL Administration Heparin Sodium (Porcine) 5,000 unit 04/12/21 10:00 04/13/21 09:23 Heparin 5,000 Unit/1 Ml Vial SUB-Q 5,000 unit Q12HR CHANTAL Administration Hydromorphone HCl 0.5 mg 04/11/21 22:09 04/12/21 00:47 Hydromorphone 1 Mg/1 Ml Inj IV 0.5 mg Q3H PRN Administration Pain , Severe (7-10) Sodium Chloride 1,000 mls @ 42 mls/hr 04/11/21 22:15 Nacl 0.9% 1000 Ml IV DIRECT [facility] Levothyroxine Sodium 100 mcg 04/12/21 06:00 04/13/21 06:36 Levothyroxine 100 Mcg Tab PO 100 mcg DAILY@0600 CHANTAL Administration Levothyroxine Sodium 75 mcg 04/12/21 06:00 04/13/21 06:36 Levothyroxine 75 Mcg Tab PO 75 mcg DAILY@0600 CHANTAL Administration Methylprednisolone Sodium Succinate 80 mg 04/11/21 23:00 04/13/21 06:36 Methylprednisolone Sod Succinate 40 Mg/1 Ml Inj IV 80 mg Q8HR CHANTAL Administration Metoclopramide HCl 10 mg 04/11/21 22:09 Metoclopramide 10 Mg/2 Ml Inj IV Q6H PRN Nausea And Vomiting Ondansetron HCl 4 mg 04/11/21 22:09 Ondansetron 4 Mg/2 Ml Inj IV Q3H PRN Nausea And Vomiting Oxycodone/Acetaminophen 1 tab 04/11/21 22:09 04/12/21 18:18 Oxycodone /Acetaminophen 5-325mg Tab PO 1 tab Q6H PRN Administration Pain, Moderate (4-6) Pravastatin Sodium 80 mg 04/12/21 22:00 04/12/21 21:48 Pravastatin 80 Mg Tab PO 80 mg QHS CHANTAL Administration Sodium Chloride 10 ml 04/12/21 10:00 04/13/21 09:24 Sodium Chloride 0.9% 10 Ml Flush Syringe IV 10 ml BID CHANTAL Administration Sodium Chloride 10 ml 04/11/21 22:09 Sodium Chloride 0.9% 10 Ml Flush Syringe IV PRN PRN LINE FLUSH Trimethoprim/Sulfamethoxazole 1 each 04/12/21 10:00 04/13/21 09:24 Sulfamethoxazole/Trimethoprim 800/160mg Ds Tab PO 1 each Q12HR CHANTAL Administration Protocol
[2021-04-13] MEDS: oxyCODONE /ACETAMINOPHEN 5-325MG TAB PO PRN ×2 (11:49→21:40)
[2021-04-13] MEDS: AMITRIPTYLINE 25 MG TAB PO SCH (21:17)
[2021-04-13] MEDS: PRAVASTATIN 80 MG TAB PO SCH (21:19)
[2021-04-13] MEDS: SODIUM CHLORIDE 0.9% 1000 ML 1,000 ML IV SCH (21:22)
[2021-04-14] MEDS: methylPREDNISolone Sod Succinate 40 MG/1 ML INJ IV SCH ×3 (05:35→21:31)
[2021-04-14] MEDS: oxyCODONE /ACETAMINOPHEN 5-325MG TAB PO PRN ×3 (05:38→18:20)
[2021-04-14] MEDS: LEVOTHYROXINE 75 MCG TAB PO SCH (05:39)
[2021-04-14] MEDS: LEVOTHYROXINE 100 MCG TAB PO SCH (05:39)
[2021-04-14] MEDS: IPRATROPIUM/ALBUTEROL SULFATE 3 ML AMPUL.NEB IH SCH ×3 (08:07→20:47)
--- NOTE | 2021-04-14 09:11 | Progress Note ---
Assessment and Plan Assessment and plan: -- Acute respiratory failure with hypoxia Current Visit: Yes Status: Acute Patient was hypoxic on arrival placed on 50% Ventimask Received multiple nebulizer treatments with mild improvement Continue oxygen titrate O2 sats to more than 90% Ventimask/BiPAP as needed Home O2 evaluation upon discharge --Acute exacerbation of chronic obstructive pulmonary disease Current Visit: Yes Status: Acute Patient initiated on duo nebs steroids IV Solu-Medrol tapering doses and supportive care -- Pulmonary nodule Current Visit: Yes Status: Acute CT scan of the chest with contrast to evaluate the pulmonary nodule Further evaluation as outpatient Consult pulmonary as needed --HTN (hypertension) moderate control Current Visit: No Status: Chronic Continue antihypertensives As needed medications he has patient's routine --Hyperlipidemia Current Visit: No Status: Chronic Continue statins --Hypothyroidism Current Visit: No Status: Chronic Continue Synthroid and check TSH --Hypokalemia Current Visit: Yes Status: Acute Mild supplemented --T2DM (type 2 diabetes mellitus) Current Visit: Yes Status: Chronic No history given, Check A1c Accu-Cheks before meals and at bedtime and coverage --Diabetic peripheral neuropathy; Current Visit: Yes Status: Chronic Continue Neurontin and supportive care --UTI (urinary tract infection) Current Visit: Yes Status: Acute Patient allergic to Levaquin and Rocephin Will treat with Bactrim DS 1 tablet twice a day Follow cultures adjust as needed --Obesity; BMI 33.8 Current Visit: Yes Status: Chronic Patient needs diet modification exercise as tolerated and weight reduction, When medically stable --DVT prophylaxis Current Visit: Yes Status: Acute On Lovenox and GI prophylaxis DC planning per case management; [facility] upon discharge We will closely monitor the patient and adjust the management as needed Plan of care reviewed with the patient and the nurse 04/13/2021; Patient admitted with acute exacerbation of COPD Continue current regimen, tapering dose of steroids If no improvement,Consult pulmonary as needed Possible discharge in 1 to 2 days if stable 04/14/2021 -Patient was on [address] chest was done and showed upper lobe mass. I consulted pulmonary. History Interval history: Patient was seen and evaluated this morning Patient shortness of breath was getting better Patient was complaining cough Hospitalist Physical - Physical exam Narrative exam: On 2 L of oxygen The patient is obese Vital signs as documented. Head exam is unremarkable. No scleral icterus . Neck is without jugular venous distension, thyromegaly, or carotid bruits. Lungs wheezing all over the chest.. Cardiac exam reveals regular rate and Rhythm. Abdominal exam reveals normal bowel sounds, nontender, no organomegaly. Extremities are nonedematous and both femoral and pedal pulses are normal. 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 No focal weakness. - Constitutional Vitals: Temp Pulse Resp BP Pulse Ox 97.8 F 69 20 126/72 94 04/14/21 04:40 04/14/21 04:40 04/14/21 04:40 04/14/21 04:40 04/14/21 04:40 General appearance: Present: mild distress, well-nourished, obese Results - Labs CBC & Chem 7: 04/12/21 05:05 04/12/21 05:05 Labs: Laboratory Last Values WBC 12.4 K/mm3 (4.5-11.0) H 04/12/21 05:05 RBC 4.77 M/mm3 (3.65-5.03) 04/12/21 05:05 Hgb 14.1 gm/dl (10.1-14.3) 04/12/21 05:05 Hct 42.0 % (30.3-42.9) 04/12/21 05:05 MCV 88 fl (79-97) 04/12/21 05:05 MCH 30 pg (28-32) 04/12/21 05:05 MCHC 34 % (30-34) 04/12/21 05:05 RDW 15.6 % (13.2-15.2) H 04/12/21 05:05 Plt Count 182 K/mm3 (140-440) 04/12/21 05:05 Lymph % (Auto) 8.0 % (13.4-35.0) L 04/11/21 14:10 [place] % (Auto) 0.8 % (0.0-7.3) 04/12/21 05:05 Eos % (Auto) 0.0 % (0.0-4.3) 04/12/21 05:05 Baso % (Auto) 0.4 % (0.0-1.8) 04/11/21 14:10 Lymph # (Auto) 1.1 K/mm3 (1.2-5.4) L 04/11/21 14:10 [place] # (Auto) 0.3 K/mm3 (0.0-0.8) 04/11/21 14:10 Eos # (Auto) 0.2 K/mm3 (0.0-0.4) 04/11/21 14:10 Baso # (Auto) 0.1 K/mm3 (0.0-0.1) 04/11/21 14:10 Add Manual Diff Complete 04/12/21 05:05 Total Counted 100 04/12/21 05:05 Seg Neutrophils % Senior Contract Specialist 04/12/21 05:05 Seg Neuts % (Manual) 93.0 % (40.0-70.0) H 04/12/21 05:05 Band Neutrophils % 1.0 % 04/12/21 05:05 Lymphocytes % (Manual) 3.0 % (13.4-35.0) L 04/12/21 05:05 Monocytes % (Manual) 1.0 % (0.0-7.3) 04/12/21 05:05 Eosinophils % (Manual) 1.0 % (0.0-4.3) 04/12/21 05:05 Basophils % (Manual) 1.0 % (0.0-1.8) 04/12/21 05:05 Nucleated RBC % Not Reportable 04/12/21 05:05 Seg Neutrophils # 11.5 K/mm3 (1.8-7.7) H 04/12/21 05:05 Seg Neutrophils # Man 11.5 K/mm3 (1.8-7.7) H 04/12/21 05:05 Band Neutrophils # 0.1 K/mm3 04/12/21 05:05 Lymphocytes # (Manual) 0.4 K/mm3 (1.2-5.4) L 04/12/21 05:05 Abs React Lymphs (Man) 0.0 K/mm3 04/12/21 05:05 Monocytes # (Manual) 0.1 K/mm3 (0.0-0.8) 04/12/21 05:05 Eosinophils # (Manual) 0.1 K/mm3 (0.0-0.4) 04/12/21 05:05 Basophils # (Manual) 0.1 K/mm3 (0.0-0.1) 04/12/21 05:05 Metamyelocytes # 0.0 K/mm3 04/12/21 05:05 Myelocytes # 0.0 K/mm3 04/12/21 05:05 Promyelocytes # 0.0 K/mm3 04/12/21 05:05 Blast Cells # 0.0 K/mm3 04/12/21 05:05 WBC Morphology Not Reportable 04/12/21 05:05 Hypersegmented Neuts Not Reportable 04/12/21 05:05 Hyposegmented Neuts Not Reportable 04/12/21 05:05 Hypogranular Neuts Not Reportable 04/12/21 05:05 Smudge Cells Not Reportable 04/12/21 05:05 Toxic Granulation Not Reportable 04/12/21 05:05 Toxic Vacuolation Not Reportable 04/12/21 05:05 Dohle Bodies Not Reportable 04/12/21 05:05 Pel[place]-Huet Anomaly Not Reportable 04/12/21 05:05 Carmen Rods Not Reportable 04/12/21 05:05 Platelet Estimate Consistent w auto 04/12/21 05:05 Clumped Platelets Not Reportable 04/12/21 05:05 Plt Clumps, EDTA Not Reportable 04/12/21 05:05 Large Platelets Not Reportable 04/12/21 05:05 Giant Platelets Not Reportable 04/12/21 05:05 Platelet Satelliting Not Reportable 04/12/21 05:05 Plt Morphology Comment Not Reportable 04/12/21 05:05 RBC Morphology Normal 04/12/21 05:05 Dimorphic RBCs Not Reportable 04/12/21 05:05 Polychromasia Not Reportable 04/12/21 05:05 Hypochromasia Not Reportable 04/12/21 05:05 Poikilocytosis Not Reportable 04/12/21 05:05 Anisocytosis Not Reportable 04/12/21 05:05 Microcytosis Not Reportable 04/12/21 05:05 Macrocytosis Not Reportable 04/12/21 05:05 Spherocytes Not Reportable 04/12/21 05:05 Pappenheimer Bodies Not Reportable 04/12/21 05:05 Sickle Cells Not Reportable 04/12/21 05:05 Target Cells Not Reportable 04/12/21 05:05 Tear Drop Cells Not Reportable 04/12/21 05:05 Ovalocytes Not Reportable 04/12/21 05:05 Helmet Cells Not Reportable 04/12/21 05:05 [place] Bodies Not Reportable 04/12/21 05:05 [place] Rings Not Reportable 04/12/21 05:05 [place] Cells Not Reportable 04/12/21 05:05 Bite Cells Not Reportable 04/12/21 05:05 Crenated Cell Not Reportable 04/12/21 05:05 Elliptocytes Not Reportable 04/12/21 05:05 Acanthocytes (Spur) Not Reportable 04/12/21 05:05 Rouleaux Not Reportable 04/12/21 05:05 Hemoglobin C Crystals Not Reportable 04/12/21 05:05 Schistocytes Not Reportable 04/12/21 05:05 Malaria parasites Not Reportable 04/12/21 05:05 [place] Bodies Not Reportable 04/12/21 05:05 Hem Pathologist Commnt No 04/12/21 05:05 Sodium 136 mmol/L (137-145) L 04/12/21 05:05 Potassium 4.3 mmol/L (3.6-5.0) D 04/12/21 05:05 Chloride 95.8 mmol/L (98-107) L 04/12/21 05:05 Carbon Dioxide 23 mmol/L (22-30) 04/12/21 05:05 Anion Gap 22 mmol/L 04/12/21 05:05 BUN 15 mg/dL (7-17) 04/12/21 05:05 Creatinine 0.9 mg/dL (0.6-1.2) 04/12/21 05:05 Estimated GFR > 60 ml/min 04/12/21 05:05 BUN/Creatinine Ratio 17 % 04/12/21 05:05 Glucose 191 mg/dL (65-100) H 04/12/21 05:05 Hemoglobin A1c 6.2 % (4-6) H 04/12/21 05:05 Calcium 8.9 mg/dL (8.4-10.2) 04/12/21 05:05 Total Bilirubin < 0.20 mg/dL (0.1-1.2) 04/12/21 05:05 AST 17 units/L (5-40) 04/12/21 05:05 ALT 8 units/L (7-56) 04/12/21 05:05 Alkaline Phosphatase 94 units/L (35-129) 04/12/21 05:05 Total Protein 6.9 g/dL (6.3-8.2) 04/12/21 05:05 Albumin 4.0 g/dL (3.9-5) 04/12/21 05:05 Albumin/Globulin Ratio 1.4 % 04/12/21 05:05 Urine Color Yellow (Yellow) 04/11/21 Unknown Urine Turbidity Clear (Clear) 04/11/21 Unknown Urine pH 5.0 (5.0-7.0) 04/11/21 Unknown Ur Specific [place] 1.011 (1.003-1.030) 04/11/21 Unknown Urine Protein <15 mg/dl mg/dL (Negative) 04/11/21 Unknown Urine Glucose (UA) Neg mg/dL (Negative) 04/11/21 Unknown Urine Ketones Neg mg/dL (Negative) 04/11/21 Unknown Urine Blood Neg (Negative) 04/11/21 Unknown Urine Nitrite Neg (Negative) 04/11/21 Unknown Urine Bilirubin Neg (Negative) 04/11/21 Unknown Urine Urobilinogen < 2.0 mg/dL (<2.0) 04/11/21 Unknown Ur Leukocyte Esterase Neg (Negative) 04/11/21 Unknown Urine WBC (Auto) 13.0 /HPF (0.0-6.0) H 04/11/21 Unknown Urine RBC (Auto) 3.0 /HPF (0.0-6.0) 04/11/21 Unknown U Epithel Cells (Auto) 1.0 /HPF (0-13.0) 04/11/21 Unknown Urine Bacteria (Auto) 2+ /HPF (Negative) 04/11/21 Unknown Urine Mucus Few /HPF 04/11/21 Unknown Microbiology: Microbiology 04/11/21 Unknown Urine,Clean Catch Urine Culture - Final Velázquez/IV: Voiding Method Toilet Active Medications - Current Medications Current Medications: Generic Name Dose Route Start Last Admin Trade Name Freq PRN Reason Stop Dose Admin Acetaminophen 650 mg 04/11/21 22:09 Acetaminophen 325 Mg Tab PO Q4H PRN Pain MILD(1-3)/Fever >100.5/GARCIA Albuterol 2.5 mg 04/12/21 02:11 Albuterol 2.5 Mg/3 Ml Nebu IH Q3HRT PRN Shortness Of Breath Albuterol/Ipratropium 1 ampul 04/12/21 08:00 04/14/21 08:07 Ipratropium/Albuterol Sulfate 3 Ml Ampul.Neb IH 1 ampul QIDRT CHANTAL Administration Amitriptyline HCl 150 mg 04/12/21 22:00 04/13/21 21:17 Amitriptyline 25 Mg Tab PO 150 mg QHS CHANTAL Administration Amlodipine Besylate 5 mg 04/12/21 10:00 04/13/21 09:24 Amlodipine 5 Mg Tab PO 5 mg DAILY CHANTAL Administration Aspirin 81 mg 04/12/21 10:00 04/13/21 09:24 Aspirin Ec 81 Mg Tab PO 81 mg DAILY CHANTAL Administration Benzonatate 200 mg 04/11/21 22:07 Benzonatate 100 Mg Cap PO TID PRN Cough Famotidine 20 mg 04/12/21 10:00 04/13/21 21:20 Famotidine 20 Mg Tab PO 20 mg BID CHANTAL Administration Gabapentin 600 mg 04/12/21 08:00 04/13/21 20:04 Gabapentin 300 Mg Cap PO 600 mg TID CHANTAL Administration Heparin Sodium (Porcine) 5,000 unit 04/12/21 10:00 04/13/21 21:20 Heparin 5,000 Unit/1 Ml Vial SUB-Q 5,000 unit Q12HR CHANTAL Administration Hydromorphone HCl 0.5 mg 04/11/21 22:09 04/12/21 00:47 Hydromorphone 1 Mg/1 Ml Inj IV 0.5 mg Q3H PRN Administration Pain , Severe (7-10) Sodium Chloride 1,000 mls @ 42 mls/hr 04/11/21 22:15 04/13/21 21:22 Nacl 0.9% 1000 Ml IV 42 mls/hr DIRECT CHANTAL Administration Levothyroxine Sodium 100 mcg 04/12/21 06:00 04/14/21 05:39 Levothyroxine 100 Mcg Tab PO 100 mcg DAILY@0600 CHANTAL Administration Levothyroxine Sodium 75 mcg 04/12/21 06:00 04/14/21 05:39 Levothyroxine 75 Mcg Tab PO 75 mcg DAILY@0600 CHANTAL Administration Methylprednisolone Sodium Succinate 80 mg 04/11/21 23:00 04/14/21 05:35 Methylprednisolone Sod Succinate 40 Mg/1 Ml Inj IV 80 mg Q8HR CHANTAL Administration Metoclopramide HCl 10 mg 04/11/21 22:09 Metoclopramide 10 Mg/2 Ml Inj IV Q6H PRN Nausea And Vomiting Ondansetron HCl 4 mg 04/11/21 22:09 Ondansetron 4 Mg/2 Ml Inj IV Q3H PRN Nausea And Vomiting Oxycodone/Acetaminophen 1 tab 04/11/21 22:09 04/14/21 05:38 Oxycodone /Acetaminophen 5-325mg Tab PO 1 tab Q6H PRN Administration Pain, Moderate (4-6) Pravastatin Sodium 80 mg 04/12/21 22:00 04/13/21 21:19 Pravastatin 80 Mg Tab PO 80 mg QHS CHANTAL Administration Sodium Chloride 10 ml 04/12/21 10:00 04/13/21 21:17 Sodium Chloride 0.9% 10 Ml Flush Syringe IV 10 ml BID CHANTAL Administration Sodium Chloride 10 ml 04/11/21 22:09 Sodium Chloride 0.9% 10 Ml Flush Syringe IV PRN PRN LINE FLUSH Trimethoprim/Sulfamethoxazole 1 each 04/12/21 10:00 04/13/21 21:20 Sulfamethoxazole/Trimethoprim 800/160mg Ds Tab PO 04/18/21 23:59 1 each Q12HR CHANTAL Administration Protocol Nutrition/Malnutrition Assess - Dietary Evaluation Nutrition/Malnutrition Findings: Nutrition Notes Start: 04/13/21 14:29 Freq: Status: Active Protocol: Document 04/13/21 14:29 (Rec: 04/13/21 14:49 [id number]) Nutrition Notes Need for Assessment generated from: dispute resolution specialist,MST Initial or Follow up Brief Note Current Diagnosis COPD,Diabetes,Hypertension, Respiratory Failure, Hyperlipidemia Other Pertinent Diagnosis UTI Current Diet cardiac Height 5 ft 2 in Weight 83.8 kg Usual Body Weight 91.36 kg [place] Body Weight (kg) 50.00 BMI 33.7 Weight change and time frame 8% wt loss in 1 month Subjective/Other Information Screen for MST. Pt reports wt loss due to not eating well lately. She is now hungry and often gets hungry at night. Pt would like double portions. She ate 100% of breakfast, 90% of lunch and asked for/was given afternoon snack. Current % PO Good (75-100%) Minimum of two criteria No Interpretation of Weight Loss (severe) >5% in 1 month Nutrition Intervention Change Diet Order: double protein and vegetable Follow-Up By: 04/19/21 Additional Comments F/u for stable intakes
[2021-04-14] MEDS: FAMOTIDINE 20 MG TAB PO SCH ×2 (10:02→21:31)
[2021-04-14] MEDS: amLODIPine 5 MG TAB PO SCH (10:02)
[2021-04-14] MEDS: SULFAMETHOXAZOLE/TRIMETHOPRIM 800/160MG DS TAB PO SCH ×2 (10:02→21:31)
[2021-04-14] MEDS: ASPIRIN EC 81 MG TAB PO SCH (10:02)
[2021-04-14] MEDS: HEPARIN 5,000 UNIT/1 ML VIAL SUB-Q SCH ×2 (10:02→21:31)
[2021-04-14] MEDS: GABAPENTIN 300 MG CAP PO SCH ×3 (10:02→19:31)
[2021-04-14] MEDS: BENZONATATE 100 MG CAP PO SCH ×2 (12:33→19:32)
--- NOTE | 2021-04-14 13:46 | Event Note ---
Date: 04/14/21 Evaluated patient and obtained history. Smoker for the last 48 years and now is still smoking about 5 cigarettes daily. She has a right upper lobe nodule that is smooth natured but in the upper lobe. Given her age and smoking history, cancer is of concern. Agree with rads, not amenable to CT guided biopsy and I cannot get it with bronch. needs PET CT. Will speak with CM to see if there is any financial help that can be provided.
[2021-04-14] MEDS: SODIUM CHLORIDE 0.9% 1000 ML 1,000 ML IV SCH (18:07)
[2021-04-14] MEDS: AMITRIPTYLINE 25 MG TAB PO SCH (21:31)
[2021-04-14] MEDS: PRAVASTATIN 80 MG TAB PO SCH (21:32)
[2021-04-15 05:56] LABS: BUN/Creatinine Ratio 22; Blood Urea Nitrogen 20 mg/dL (7-17); Calcium 9.2 mg/dL (8.4-10.2); Hemolysis Index 4
[2021-04-15] MEDS: methylPREDNISolone Sod Succinate 40 MG/1 ML INJ IV SCH (05:57)
[2021-04-15] MEDS: LEVOTHYROXINE 100 MCG TAB PO SCH (05:58)
[2021-04-15] MEDS: LEVOTHYROXINE 75 MCG TAB PO SCH (05:58)
[2021-04-15] MEDS: GABAPENTIN 300 MG CAP PO SCH (08:00)
[2021-04-15] MEDS: BENZONATATE 100 MG CAP PO SCH (08:00)
[2021-04-15] MEDS: oxyCODONE /ACETAMINOPHEN 5-325MG TAB PO PRN (08:55)
[2021-04-15] MEDS: SULFAMETHOXAZOLE/TRIMETHOPRIM 800/160MG DS TAB PO SCH (10:26)
[2021-04-15] MEDS: ASPIRIN EC 81 MG TAB PO SCH (10:26)
[2021-04-15] MEDS: FAMOTIDINE 20 MG TAB PO SCH (10:27)
[2021-04-15] MEDS: HEPARIN 5,000 UNIT/1 ML VIAL SUB-Q SCH (10:28)
[2021-04-15] MEDS: amLODIPine 5 MG TAB PO SCH (10:28)
[2021-04-15] MEDS: IPRATROPIUM/ALBUTEROL SULFATE 3 ML AMPUL.NEB IH SCH (10:33)
--- NOTE | 2021-04-15 12:09 | Discharge Summary ---
Providers - Providers Date of Admission: 04/13/21 11:17 Attending physician: TATIANNA ALARCON 04/14/21 09:07 Consult to Physician [CONS] Routine Comment: Consulting Provider: BEULAH MUNOZ Physician Instructions: Reason For Exam: right upper lobe mass Primary care physician: YEYO CARBAJAL MD Hospitalization Condition: Stable Exam - Constitutional Vitals: Temp Pulse Resp BP Pulse Ox 98.2 F 83 20 135/72 100 04/15/21 05:42 04/15/21 10:34 04/15/21 10:34 04/15/21 05:42 04/15/21 10:00 Plan Follow up with: PRIMARY CAREMD [Primary Care Provider] - 3-5 Days Prescriptions: Albuterol Sulfate [Albuterol 0.63% NEBS] 0.63 mg IH BID PRN #1 box PRN Reason: Wheezing Ipratropium [Atrovent NEB] 0.5 mg IH Q8HRT #1 box Sulfamethoxazole/Trimethoprim [Bactrim DS TAB] 1 each PO BID #14 tablet Nebulizer [Compact Compressor Nebulizer] 1 each MC BID PRN #1 each PRN Reason: Wheezing Prednisone [predniSONE 10 mg (6-Day Pack, 21 Tabs)] 10 mg PO .TAPER #1 tab.ds.pk Levothyroxine Sodium [Synthroid] 175 mcg PO DAILY #30 tablet Benzonatate [Tessalon Perles] 100 mg PO Q8HR #20 capsule
[2021-04-15 12:41] VITALS: BP 145/90
== END 2021-04-15 12:30 | disposition home or self-care (01) | DRG 189 ==
LOC: ED 08:37 → 3A 14:04 → OBSVTOIN 04-13 11:17
PROVIDERS: ADMIT Internal Medicine; ATTEND Internal Medicine
DX: J96.01 Acute respiratory failure with hypoxia (principal); J44.1 Chronic obstructive pulmonary disease with (acute) exacerbation; N39.0 Urinary tract infection, site not specified; E87.2 Acidosis; I10 Essential (primary) hypertension; E03.9 Hypothyroidism, unspecified; M51.36 Other intervertebral disc degeneration, lumbar region; F17.210 Nicotine dependence, cigarettes, uncomplicated; E87.6 Hypokalemia; E78.2 Mixed hyperlipidemia; R91.1 Solitary pulmonary nodule; E11.40 Type 2 diabetes mellitus with diabetic neuropathy, unspecified; E66.9 Obesity, unspecified; Z68.33 Body mass index [BMI] 33.0-33.9, adult; Z90.710 Acquired absence of both cervix and uterus; Z79.899 Other long term (current) drug therapy; Z79.82 Long term (current) use of aspirin; Z79.891 Long term (current) use of opiate analgesic; Z79.01 Long term (current) use of anticoagulants; Z88.8 Allergy status to other drugs, medicaments and biological substances; Z88.5 Allergy status to narcotic agent; Z79.4 Long term (current) use of insulin; Z88.0 Allergy status to penicillin; Z88.1 Allergy status to other antibiotic agents
CPT/HCPCS: 36415; 71046; 71270; 80048; 80053; 81001; 83036; 85007; 85025; 87086; 87641; 94640; 94644; 96365; 96375; 99291; 99406; G0378; A9270-GY; J1170; J1644; J2920; J2930; J3475; J7030; Q9967

== ENCOUNTER 2021-07-31 12:46 | Inpatient (IN) | payer SELFPAY ==
--- NOTE | 2021-07-31 12:59 | Emergency Department Report ---
ED Neuro Deficit HPI - General Stated Complaint: HEADACHE Time Seen by Provider: 07/31/21 12:53 - History of Present Illness Initial Comments: Patient presents with a headache as well as weakness. She states that her headache woke her up this morning at about 6:30 AM. She is fairly certain about the time because she normally sleeps later than that. Patient states that this was a severe headache. She is never had a headache this severe before. It is bi lateral and throbbing and pounding. She is seeing flashing lights associated with this. She noticed some right arm weakness and right leg weakness in addition. Patient has no history of head trauma. She has no diplopia. Patient denies left-sided symptoms. She states that her right side just feels weak and numb. She states her face feels puffy as well. She does report that she had a TIA about 5 years ago. There was no residual deficit. She still takes an aspirin every day but is not on any other medication. She states that she is in a [facility] [place] [facility] and cannot afford the medication. - Related Data Home Medications: Home Medications Medication Instructions Recorded Confirmed Last Taken Gabapentin [Neurontin] 400 mg PO Q8H 07/31/21 07/31/21 3 Months Ago ~04/30/21 Levothyroxine Sodium [Synthroid] 200 mcg PO DAILY 07/31/21 07/31/21 03/16/21 Previous Rx's Medication Instructions Recorded Last Taken Type Levothyroxine Sodium [Synthroid] 175 mcg PO DAILY #30 tablet 12/27/20 3 Months Ago Rx ~04/30/21 Albuterol Sulfate [Albuterol 0.63% 0.63 mg IH BID PRN #1 box 04/15/21 3 Months Ago Rx NEBS] ~04/30/21 Benzonatate [Tessalon Perles] 100 mg PO Q8HR #20 capsule 04/15/21 3 Months Ago R x ~04/30/21 Ipratropium [Atrovent NEB] 0.5 mg IH Q8HRT #1 box 04/15/21 3 Months Ago Rx ~04/30/21 Nebulizer [Compact Compressor 1 each MC BID PRN #1 each 04/15/21 3 Months Ago Rx Nebulizer] ~04/30/21 Prednisone [predniSONE 10 mg 10 mg PO .TAPER #1 tab.ds.pk 04/15/21 3 Months Ago Rx (6-Day Pack, 21 Tabs)] ~04/30/21 Sulfamethoxazole/Trimethoprim 1 each PO BID #14 tablet 04/15/21 03/16/21 Rx [Bactrim DS TAB] 200 Allergies/Adverse Reactions: Allergies Allergy/AdvReac Type Severity Reaction Status Date / Time azithromycin Allergy Itching Verified 04/14/21 10:28 cephalexin [From Keflex] Allergy Unknown Verified 04/14/21 10:28 ketorolac [From Toradol] Allergy Unknown Verified 04/14/21 10:28 levofloxacin [From Levaquin] Allergy Swelling Verified 04/14/21 10:28 morphine Allergy Unknown Verified 04/14/21 10:28 naproxen Allergy Unknown Verified 04/14/21 10:28 Penicillins Allergy Unknown Verified 04/14/21 10:28 tramadol [From Ultram] Allergy Unknown Verified 04/14/21 10:28 ED Review of Systems ROS: Stated complaint: HEADACHE Other details as noted in HPI Comment: All other systems reviewed and negative Constitutional: denies: fever Eyes: as per HPI ENT: denies: throat pain Respiratory: denies: cough Cardiovascular: denies: chest pain Endocrine: denies: unexplained weight loss Gastrointestinal: denies: abdominal pain Genitourinary: denies: dysuria Musculoskeletal: denies: back pain Skin: denies: rash Neurological: as per HPI Hematological/Lymphatic: denies: easy bruising ED Past Medical Hx - Past Medical History Hx Hypertension: Yes Hx CVA: Yes (TIA) Hx COPD: Yes Additional medical history: Hypothyroidism Degenrativr Disc Disease - Surgical History Additional Surgical History: hysterectomy - Family History Family history: hypertension - Social History Smoking Status: Current Every Day Smoker (We discussed tobacco cessation x3 minutes) Substance Use Type: None - Medications Home Medications: Home Medications Medication Instructions Recorded Confirmed Last Taken Type Levothyroxine Sodium [Synthroid] 175 mcg PO DAILY #30 tablet 12/27/20 04/14/21 3 Months Ago Rx ~04/30/21 Albuterol Sulfate [Albuterol 0.63% 0.63 mg IH BID PRN #1 box 04/15/21 3 Months Ago Rx NEBS] ~04/30/21 Benzonatate [Tessalon Perles] 100 mg PO Q8HR #20 capsule 04/15/21 3 Months Ago Rx ~04/30/21 Ipratropium [Atrovent NEB] 0.5 mg IH Q8HRT #1 box 04/15/21 3 Months Ago Rx ~04/30/21 Nebulizer [Compact Compressor 1 each MC BID PRN #1 each 04/15/21 3 Months Ago Rx Nebulizer] ~04/30/21 Prednisone [predniSONE 10 mg 10 mg PO .TAPER #1 tab.ds.pk 04/15/21 3 Months Ago Rx (6-Day Pack, 21 Tabs)] ~04/30/21 Sulfamethoxazole/Trimethoprim 1 each PO BID #14 tablet 04/15/21 07/31/21 03/16/21 Rx [Bactrim DS TAB] 200 Gabapentin [Neurontin] 400 mg PO Q8H 07/31/21 07/31/21 3 Months Ago History ~04/30/21 Levothyroxine Sodium [Synthroid] 200 mcg PO DAILY 07/31/21 07/31/21 03/16/21 History ED Neuro Physical Exam - General Limitations: No Limitations, Other (Pulse ox noted and normal) General appearance: alert, in no apparent distress Suspected Stroke: Yes - Head Head exam: Present: atraumatic, normocephalic, normal inspection - Eye Eye exam: Present: normal appearance, PERRL, EOMI. Absent: scleral icterus - ENT ENT exam: Present: normal exam, mucous membranes dry, normal external ear exam - Neck Neck exam: Present: normal inspection. Absent: meningismus - Respiratory Respiratory exam: Present: normal lung sounds bilaterally. Absent: respiratory distress - Cardiovascular Cardiovascular Exam: Present: regular rate, normal rhythm - GI/Abdominal GI/Abdominal exam: Present: soft. Absent: tenderness - Extremities Exam Extremities exam: Present: normal capillary refill. Absent: calf tenderness - Back Exam Back exam: Absent: CVA tenderness (R), CVA tenderness (L) - Neurological Exam Neurological exam: Present: alert, oriented X3, normal gait, other (Patient's effort is very poor and variable. Her exam findings wax and wane.) - NIHSS Assessment Interval: Baseline 1a. Level of Consciousness: alert/keenly responsive 1b. LOC Questions: answers both correctly 1c. LOC Commands: performs tasks correctly 2. Best Gaze: normal 3. Visual: no visual loss 4. Facial Palsy: minor paralysis 5b. Motor Arm Right: drift 5a. Motor Arm Left: no drift 6a. Motor Leg Left: no drift 6b. Motor Leg Right: drift 7. Limb Ataxia: absent 8. Sensory: mild/moderate sensory loss 9. Best Language: no aphasia 10. Dysarthria: normal 11. Extinction/Inattention: no abnormality Total Score: 4 Stroke Severity: Minor Stroke - Psychiatric Psychiatric exam: Present: normal affect, normal mood - Skin Skin exam: Present: warm, dry ED Course Vital Signs 07/31/21 07/31/21 07/31/21 13:01 13:38 13:40 Temperature 98.6 F Pulse Rate 71 57 L Respiratory 15 17 20 Rate Blood Pressure Blood Pressure 181/106 [Right] O2 Sat by Pulse 97 98 98 Oximetry 07/31/21 07/31/21 07/31/21 13:45 14:00 14:15 Temperature Pulse Rate 64 56 L 70 Respiratory 13 12 12 Rate Blood Pressure 180/118 172/95 141/89 Blood Pressure 171/82 [Right] O2 Sat by Pulse 97 96 92 Oximetry 07/31/21 14:30 Temperature Pulse Rate 59 L Respiratory 15 Rate Blood Pressure 153/90 Blood Pressure [Right] O2 Sat by Pulse 96 Oximetry - Reevaluation(s) Reevaluation #1: 07/31/21 12:56 Code stroke was activated. Old records reviewed. We discussed tobacco cessation. Reevaluation #2: 07/31/21 13:[address] are still pending. Reevaluation #3: 07/31/21 14:11 Radiologist called with the noncontrast head CT result. There was no bleed. Reevaluation #4: 07/31/21 15:06 CT was noted. This had been discussed with radiology, neurology, and the hospitalist. We will proceed with admission. - Lab Data Result diagrams: 07/31/21 13:37 07/31/21 13:37 Lab Results 07/31/21 07/31/21 07/31/21 Range/Units 12:56 13:37 13:37 WBC 7.0 (4.5-11.0) K/mm3 RBC 4.89 (3.65-5.03) M/mm3 Hgb 14.9 H (10.1-14.3) gm/dl Hct 44.3 H (30.3-42.9) % MCV 91 (79-97) fl MCH 31 (28-32) pg MCHC 34 (30-34) % RDW 15.2 (13.2-15.2) % Plt Count 208 (140-440) K/mm3 Lymph % (Auto) 38.0 H (13.4-35.0) % [place] % (Auto) 4.3 (0.0-7.3) % Eos % (Auto) 6.2 H (0.0-4.3) % Baso % (Auto) 1.9 H (0.0-1.8) % Lymph # (Auto) 2.7 (1.2-5.4) K/mm3 [place] # (Auto) 0.3 (0.0-0.8) K/mm3 Eos # (Auto) 0.4 (0.0-0.4) K/mm3 Baso # (Auto) 0.1 (0.0-0.1) K/mm3 Seg Neutrophils % 49.6 (40.0-70.0) % Seg Neutrophils # 3.5 (1.8-7.7) K/mm3 PT 12.8 (12.2-14.9) Sec. INR 0.87 (0.87-1.13) APTT 30.9 (24.2-36.6) Sec. Thrombin Time 21.4 H (15.1-19.6) Sec. Sodium (137-145) mmol/L Potassium (3.6-5.0) mmol/L Chloride (98-107) mmol/L Carbon Dioxide (22-30) mmol/L Anion Gap mmol/L BUN (7-17) mg/dL Creatinine (0.6-1.2) mg/dL Estimated GFR ml/min BUN/Creatinine Ratio % Glucose (65-100) mg/dL POC Glucose 97 (70-105) mg/dL Calcium (8.4-10.2) mg/dL Troponin T (0.00-0.029) ng/mL 07/31/21 Range/Units 13:37 WBC (4.5-11.0) K/mm3 RBC (3.65-5.03) M/mm3 Hgb (10.1-14.3) gm/dl Hct (30.3-42.9) % MCV (79-97) fl MCH (28-32) pg MCHC (30-34) % RDW (13.2-15.2) % Plt Count (140-440) K/mm3 Lymph % (Auto) (13.4-35.0) % [place] % (Auto) (0.0-7.3) % Eos % (Auto) (0.0-4.3) % Baso % (Auto) (0.0-1.8) % Lymph # (Auto) (1.2-5.4) K/mm3 [place] # (Auto) (0.0-0.8) K/mm3 Eos # (Auto) (0.0-0.4) K/mm3 Baso # (Auto) (0.0-0.1) K/mm3 Seg Neutrophils % (40.0-70.0) % Seg Neutrophils # (1.8-7.7) K/mm3 PT (12.2-14.9) Sec. INR (0.87-1.13) APTT (24.2-36.6) Sec. Thrombin Time (15.1-19.6) Sec. Sodium 139 (137-145) mmol/L Potassium 3.9 (3.6-5.0) mmol/L Chloride 98.4 (98-107) mmol/L Carbon Dioxide 27 (22-30) mmol/L Anion Gap 18 mmol/L BUN 11 (7-17) mg/dL Creatinine 1.1 (0.6-1.2) mg/dL Estimated GFR 50 ml/min BUN/Creatinine Ratio 10 % Glucose 91 (65-100) mg/dL POC Glucose (70-105) mg/dL Calcium 8.8 (8.4-10.2) mg/dL Troponin T < 0.010 (0.00-0.029) ng/mL - EKG Data -: EKG Interpreted by Wa 07/31/21 15:07 EKG shows normal sinus rhythm at 56. Intervals are normal including a QRS of 84 and a QT corrected 470. There is no ST elevation to suggest interpret is no C depression suggestive of ischemia. There is good R wave progression. There does not appear to be interval change from prior EKG. - Radiology Data Radiology results: report reviewed - Medical Decision Making Patient presents with abrupt onset of headache associated with some right-sided weakness. CT and CTA have been obtained. There is no obvious stroke, tumor, mass, bleed, or aneurysm. Patient has been seen by neurology. We will continue work-up. Patient will be admitted for further management. Case has been discussed with the hospitalist. There is no trauma to suggest subdural or epidural hematomas. Critical Care Time: No Critical care attestation.: If time is entered above; I have spent that time in minutes in the direct care of this critically ill patient, excluding procedure time. ED Disposition Clinical Impression: Right hemiparesis Acute headache Qualifiers: Headache type: unspecified Intractability: not intractable Qualified Code(s): R51.9 - Headache, unspecified Disposition: 07 LEFT AWOL/ELOPED Is pt being admited?: Yes Condition: Stable
[2021-07-31 14:20] LABS: Basophils # (Auto) 0.1 K/mm3 (0.0-0.1); Basophils % (Auto) 1.9 % (0.0-1.8); Eosinophils # (Auto) 0.4 K/mm3 (0.0-0.4); Eosinophils % (Auto) 6.2 % (0.0-4.3); Hematocrit 44.3 % (30.3-42.9); Hemoglobin 14.9 gm/dl (10.1-14.3); Lymphocytes # (Auto) 2.7 K/mm3 (1.2-5.4); Mean Corpuscular HGB Conc 34 % (30-34); Mean Corpuscular Volume 91 fl (79-97); Monocytes # (Auto) 0.3 K/mm3 (0.0-0.8); Monocytes % (Auto) 4.3 % (0.0-7.3); Red Blood Count 4.89 M/mm3 (3.65-5.03); Red Cell Distribution Width 15.2 % (13.2-15.2)
--- NOTE | 2021-07-31 14:23 | Cat Scan Report ---
CT angio neck INDICATION / CLINICAL INFORMATION: 60 years Female; stroke sx omni 350 100ml . TECHNIQUE: Thin cut axial images obtained through the head during IV bolus contrast administration. S agittal, coronal, and 3 plane MIP reconstructions performed by the technologist. NASCET type criteria used evaluate stenoses. All CT scans at this location are performed using CT dose reduction for ALAR A by means of automated exposure control. COMPARISON: None available. FINDINGS: CAROTID ARTERIES: The motion and beam hardening degrade the image quality, particularly at the level the carotid bifurcations and ICAs at. However, there is atherosclerotic plaque involving left ICA jus t distal to the level the carotid bulb with approximately 30% stenosis by NASCET to criteria. There is milder calcified plaque involving proximal right ICA without significant stenosis by NASCET criteria. There is developmental tortuosity of the cervical ICAs. 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 The right cervica l vertebral artery is clearly dominant. However, there is calcification at the origin with moderate t o degree of stenosis at. ARCH: There is calcified plaque involving aortic arch with mild narrowing of the origin of the left s ubclavian artery measuring approximately 10-20%. ADDITIONAL FINDINGS: Remainder of the surrounding soft tissues are grossly normal. IMPRESSION: There is atherosclerotic calcification involving left ICA just distal to the left carotid bulb with a pproximately 30% stenosis by NASCET to criteria. 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 There is moderate stenosis i nvolving origin of the dominant right vertebral artery. Signer Name: Nate Craig MD Signed: 07/31/2021 2:17 PM Workstation Name: [id number]
--- NOTE | 2021-07-31 14:25 | Consultation ---
History of Present Illness Consult date: 07/31/21 Past History Past Medical History: hypertension Medications and Allergies Allergies Allergy/AdvReac Type Severity Reaction Status Date / Time azithromycin Allergy Itching Verified 04/14/21 10:28 cephalexin [From Keflex] Allergy Unknown Verified 04/14/21 10:28 ketorolac [From Toradol] Allergy Unknown Verified 04/14/21 10:28 levofloxacin [From Levaquin] Allergy Swelling Verified 04/14/21 10:28 morphine Allergy Unknown Verified 04/14/21 10:28 naproxen Allergy Unknown Verified 04/14/21 10:28 Penicillins Allergy Unknown Verified 04/14/21 10:28 tramadol [From Ultram] Allergy Unknown Verified 04/14/21 10:28 Home Medications Medication Instructions Recorded Confirmed Last Taken Type Gabapentin [Neurontin] 600 mg PO Q8H #21 tablet 12/27/20 04/14/21 03/16/21 Rx Levothyroxine Sodium [Synthroid] 175 mcg PO DAILY #30 tablet 12/27/20 04/14/21 03/16/21 Rx Albuterol Sulfate [Albuterol 0.63% 0.63 mg IH BID PRN #1 box 04/15/21 Unknown Rx NEBS] Benzonatate [Tessalon Perles] 100 mg PO Q8HR #20 capsule 04/15/21 Unknown Rx Ipratropium [Atrovent NEB] 0.5 mg IH Q8HRT #1 box 04/15/21 Unknown Rx Levothyroxine Sodium [Synthroid] 175 mcg PO DAILY #30 tablet 04/15/21 Unknown Rx Nebulizer [Compact Compressor 1 each MC BID PRN #1 each 04/15/21 Unknown Rx Nebulizer] Prednisone [predniSONE 10 mg 10 mg PO .TAPER #1 tab.ds.pk 04/15/21 Unknown Rx (6-Day Pack, 21 Tabs)] Sulfamethoxazole/Trimethoprim 1 each PO BID #14 tablet 04/15/21 Unknown Rx [Bactrim DS TAB] Active Meds: Active Medications Labetalol HCl (Labetalol 20 Mg/4 Ml Inj) 10 mg IV Q5MIN PRN PRN Reason: to maintain SBP < 180 Review of Systems All systems: negative (See copied BSL note) Physical Examination - Vital Signs Vital Signs: Vital Signs Temp Pulse Resp BP Pulse Ox 98.6 F 71 15 181/106 97 11/15/21 13:01 07/31/21 13:01 07/31/21 13:01 07/31/21 13:01 07/31/21 13:01 - Assessment Assessment Interval: Baseline Results - Laboratory Findings CBC and BMP: 07/31/21 13:37 Abnormal Lab Findings: Abnormal Labs 07/31/21 13:37 Hgb 14.9 H Hct 44.3 H Lymph % (Auto) 38.0 H Eos % (Auto) 6.2 H Baso % (Auto) 1.9 H Assessment and Plan [facility] Consult Note # Demographics Consult Type: Acute Stroke Level 1 (0-4.5 hrs) Patient Location: Emergency Room First Name: Mabel Last Name: Austyn Date of : 1960 Age: 60 Gender: Female Facility: [facility] Time of Initial Page ( Time): 07/31/2021, 12:58 Time of Return Call (Eastern Time): 07/31/2021, 12:59 # HPI Chief Complaint: headache weakness (focal) Handedness: Right History: Per ER staff, patient woke up at 6:30am with headache & right-sided weakness. She went to bed around 8:30pm. Weakness reportedly started "after lunch, I was at work." H/O TIA, current smoker, reportedly taking aspirin. Last Known Normal: I have collected independent history specific to time last normal or last known well. We have collaborated with the provider and at this time, we have the most current timeline with the information that is available. Yesterday "after lunch" Duration: constant hours Associated Symptoms: falls headache vision changes Seeing flashes of really bright light Quality: numbness weakness # Scores Time of exam and NIHSS ( Time): 07/31/2021, 13:15 Level of Consciousness 1a: [0] = Alert; keenly responsive LOC Questions 1b: [0] = Answers both questions correctly LOC Commands 1c: [0] = Performs both tasks correctly Best Gaze 2: [0] = Normal Visual 3: [1] = Partial hemianopia Facial Palsy 4: [0] = Normal symmetrical movements Motor Arm Left 5a: [0] = No drift Motor Arm Right 5b: [1] = Drift Motor Leg Left 6a: [0] = No drift Motor Leg Right 6b: [3] = No effort against gravity Limb Ataxia 7: [0] = Absent Sensory 8: [1] = [id number] sensory loss Best Language 9: [1] = Sxcy-xt-fmbgvqri aphasia Dysarthria 10: [0] = Normal Extinction and Inattention 11: [1] = Visual, tactile, auditory, spatial, or personal inattention NIHSS Total: 8 VAN Screening: Positive # Exam Vitals: vital signs reviewed 98.6 SBP: 181 DBP: 106 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 # PMH-FH-SH Past Medical History: hypertension hypothyroid TIA H/O thyroid cancer Social History: smoker non-drinker no drugs Medications: aspirin non-compliant with medications Allergies: other # Data Glucose: [address] personally read by me (Eastern Time): 07/31/2021, 13:[address]: no bleed preliminarily reviewed by me, please refer to radiology read for official reading # Assessment Impression: Ischemic Stroke (Acute) Stroke Mimic Suspected ischemic stroke (versus PRES) # Plan Thrombolytic/Intervention: NOT IV Thrombolysis or IA Intervention candidate Thrombolytic Exclusion (< 3 hour window): time of onset unclear Thrombolytic Exclusion: > 4.5 hours Reported Labs: CBC comprehensive metabolic panel hemoglobin A1c lipid panel TSH Imaging: (urgency: STAT): CT Angiogram Head and CT Angiogram Neck AND call back with results if abnormal Imaging: (urgency: routine): MRI Brain without contrast Diagnostic Test: echo without bubble study Therapy/Evaluation: NPO until swallow evaluation PT/OT evaluation Medication: aspirin 81 mg PLUS clopidogrel (Plavix) 75 mg for 21 days, then monotherapy therafter DVT Prophylaxis: SCD chemical DVT prophylaxis Other: LDL < 70 permissive hypertension telemetry monitoring I have discussed my recommendations with the referring provider Tobacco cessation encouraged; discussed with one of Dr. Rodas's colleagues in the ER (Dr. Rodas was reportedly managing a cardiac arrest). Disposition: admit
--- NOTE | 2021-07-31 14:28 | Cat Scan Report ---
CT head/brain wo con INDICATION / CLINICAL INFORMATION: 60 years Female; CALL REPORT [phone] Stroke symptoms, Weakness. TECHNIQUE: Routine CT head without contrast. All CT scans at this location are performed using CT dos e reduction for ALARA by means of automated exposure control. COMPARISON: None. FINDINGS: BRAIN / INTRACRANIAL CONTENTS: The brain appears to demonstrate appropriate attenuation for age. The ventricular system is within normal limits in size and configuration. The motion degrades the image q uality. However, there is no clear CT evidence of acute intracranial hemorrhage or significant mass e ffect. ORBITS: No significant abnormality of visualized orbits. SINUSES / MASTOIDS: No significant abnormality in the visualized paranasal sinuses or mastoid air dorothy ls. CRANIOCERVICAL JUNCTION: No significant abnormality. ADDITIONAL FINDINGS: None. IMPRESSION: 1. There is no clear CT evidence of acute intracranial process. The study was specified as code stroke and called emergently to Dr. Cuellar in the ER at 1:10 PM Cent ral standard time. However, there was some delay in the final dictation awaiting the sagittal and cor onal reconstructions. Signer Name: Nate Craig MD Signed: 07/31/2021 2:24 PM Workstation Name: [id number]
[2021-07-31 14:31] LABS: INR 0.87 (0.87-1.13)
[2021-07-31 14:32] LABS: Partial Thromboplastin Time 30.9 Sec. (24.2-36.6); Thrombin Time 21.4 Sec. (15.1-19.6)
[2021-07-31 14:34] LABS: Platelet Count 208 K/mm3 (140-440)
[2021-07-31] MEDS ORDERED: fentaNYL 100 MCG/2 ML INJ IV ONE (14:37)
[2021-07-31] MEDS ORDERED: METOCLOPRAMIDE 10 MG/2 ML INJ IV ONE (14:37)
[2021-07-31 14:45] LABS: BUN/Creatinine Ratio 10; Blood Urea Nitrogen 11 mg/dL (7-17); Calcium 8.8 mg/dL (8.4-10.2); Hemolysis Index 4
--- NOTE | 2021-07-31 15:18 | Cat Scan Report ---
CT angio head INDICATION / CLINICAL INFORMATION: 60 years Female; stroke sx omni 350 100ml . TECHNIQUE: Thin cut axial images obtained through the head during IV bolus contrast administration. S agittal, coronal, and 3 plane MIP reconstructions performed by the technologist. NASCET type criteria used evaluate stenoses. Automated exposure control utilized for radiation reduction purposes. COMPARISON: None available. FINDINGS: INTERNAL CAROTID ARTERIES: There is no significant focal stenosis involving the distal internal carot id arteries by NASCET criteria. VERTEBROBASILAR SYSTEM: There is notable developmental hypoplasia of the left vertebral artery which appears to terminate in PICA. The right vertebral artery is clearly dominant without ossific and foca l stenosis. The basilar artery demonstrate appropriate caliber. CEREBRAL ARTERIES: There is developmental origin of the right [employer] at. There is mild irregularit y of the distal cerebral branches including mild to moderate focal stenosis involving the A3 segment of the left MANUEL. The findings are nonspecific and may be related to mild atherosclerotic disease at. There is no CTA evidence of large vessel occlusion. ANEURYSM: None identified. ADDITIONAL FINDINGS: Remainder of the surrounding soft tissues are grossly normal. IMPRESSION: There is mild irregularity of the cerebral branches, including the A3 segment of the left MANUEL as deta iled above which may reflect atherosclerotic disease. There is no CTA evidence of large vessel occlus ion. There is developmental hypoplasia of the distal left vertebral artery and origin of the right P CA. Signer Name: Nate Craig MD Signed: 07/31/2021 3:14 PM Workstation Name: [id number]
--- NOTE | 2021-07-31 23:55 | History and Physical Report ---
History of Present Illness Date of examination: 07/31/21 Date of admission: 07/31/21 15:05 Chief complaint: Right upper extremity and right lower extremity since last night History of present illness: 60-year-old female with history of asthma and hypothyroidism comes in for right- sided weakness since last night. Also severe headache since 6:30 AM this morning. Patient did not seek immediate medical attention. No diplopia. No nasal regurgitation of fluids. Patient had a TIA about 5 years ago. No residual deficits. Takes aspirin every day. Patient states that she is in a [facility] [place] [facility] and cannot afford the medication. ED course-patient had persistent right upper and right lower extremity weakness with mild right facial weakness because of the elapsed time patient is not a candidate for TPA - Past Medical History --Hypertension: Yes --(TIA) --COPD: Yes Additional medical history: Hypothyroidism Degenrativr Disc Disease - Surgical History Additional Surgical History: hysterectomy - Family History Family history: hypertension - Social History Smoking Status: Current Every Day Smoker (We discussed tobacco cessation x3 minutes) Substance Use Type: None - Medications Home Medications: Home Medications Medication Instructions Recorded Confirmed Last Taken Type Levothyroxine Sodium [Synthroid] 175 mcg PO DAILY #30 tablet 12/27/20 04/14/21 3 Months Ago Rx ~04/30/21 Albuterol Sulfate [Albuterol 0.63% 0.63 mg IH BID PRN #1 box 04/15/21 3 Months Ago Rx NEBS] ~04/30/21 Benzonatate [Tessalon Perles] 100 mg PO Q8HR #20 capsule 04/15/21 3 Months Ago Rx ~04/30/21 Ipratropium [Atrovent NEB] 0.5 mg IH Q8HRT #1 box 04/15/21 3 Months Ago Rx ~04/30/21 Nebulizer [Compact Compressor 1 each MC BID PRN #1 each 04/15/21 3 Months Ago Rx Nebulizer] ~04/30/21 Prednisone [predniSONE 10 mg 10 mg PO .TAPER #1 tab.ds.pk 04/15/21 3 Months Ago Rx (6-Day Pack, 21 Tabs)] ~04/30/21 Sulfamethoxazole/Trimethoprim 1 each PO BID #14 tablet 04/15/21 07/31/21 03/16/21 Rx [Bactrim DS TAB] 200 Gabapentin [Neurontin] 400 mg PO Q8H 07/31/21 07/31/21 3 Months Ago History ~04/30/21 Levothyroxine Sodium [Synthroid] 200 mcg PO DAILY 07/31/21 07/31/21 03/16/21 History Review of Systems ROS: Stated complaint: HEADACHE Other details as noted in HPI Comment: All other systems reviewed and negative Constitutional: denies: fever Eyes: as per HPI ENT: denies: throat pain Respiratory: denies: cough Cardiovascular: denies: chest pain Endocrine: denies: unexplained weight loss Gastrointestinal: denies: abdominal pain Genitourinary: denies: dysuria Musculoskeletal: denies: back pain Skin: denies: rash Neurological: as per HPI Hematological/Lymphatic: denies: easy bruising Past History Past Medical History: hypertension Medications and Allergies Allergies Allergy/AdvReac Type Severity Reaction Status Date / Time azithromycin Allergy Itching Verified 04/14/21 10:28 cephalexin [From Keflex] Allergy Unknown Verified 04/14/21 10:28 ketorolac [From Toradol] Allergy Unknown Verified 04/14/21 10:28 levofloxacin [From Levaquin] Allergy Swelling Verified 04/14/21 10:28 morphine Allergy Unknown Verified 04/14/21 10:28 naproxen Allergy Unknown Verified 04/14/21 10:28 Penicillins Allergy Unknown Verified 04/14/21 10:28 tramadol [From Ultram] Allergy Unknown Verified 04/14/21 10:28 Home Medications Medication Instructions Recorded Confirmed Last Taken Type Levothyroxine Sodium [Synthroid] 175 mcg PO DAILY #30 tablet 12/27/20 04/14/21 3 Months Ago Rx ~04/30/21 Albuterol Sulfate [Albuterol 0.63% 0.63 mg IH BID PRN #1 box 04/15/21 3 Months Ago Rx NEBS] ~04/30/21 Benzonatate [Tessalon Perles] 100 mg PO Q8HR #20 capsule 04/15/21 3 Months Ago Rx ~04/30/21 Ipratropium [Atrovent NEB] 0.5 mg IH Q8HRT #1 box 04/15/21 3 Months Ago Rx ~04/30/21 Nebulizer [Compact Compressor 1 each MC BID PRN #1 each 04/15/21 3 Months Ago Rx Nebulizer] ~04/30/21 Prednisone [predniSONE 10 mg 10 mg PO .TAPER #1 tab.ds.pk 04/15/21 3 Months Ago Rx (6-Day Pack, 21 Tabs)] ~04/30/21 Sulfamethoxazole/Trimethoprim 1 each PO BID #14 tablet 04/15/21 07/31/21 03/16/21 Rx [Bactrim DS TAB] 200 Gabapentin [Neurontin] 400 mg PO Q8H 07/31/21 07/31/21 3 Months Ago History ~04/30/21 Levothyroxine Sodium [Synthroid] 200 mcg PO DAILY 07/31/21 07/31/21 03/16/21 History Active Meds: Active Medications Labetalol HCl (Labetalol 20 Mg/4 Ml Inj) 10 mg IV Q5MIN PRN PRN Reason: to maintain SBP < 180 Exam - Constitutional Vitals: Temp Pulse Resp BP Pulse Ox 98.8 F 52 L 8 L 101/65 97 07/31/21 17:00 07/31/21 21:00 07/31/21 22:30 07/31/21 22:30 07/31/21 22:30 General appearance: Present: no acute distress, well-nourished - EENT Eyes: Present: PERRL ENT: hearing intact, clear oral mucosa - Neck Neck: Present: supple, normal ROM - Respiratory Respiratory effort: normal Respiratory: bilateral: CTA - Cardiovascular Heart rate: 78 Rhythm: regular Heart Sounds: Present: S1 & S2. Absent: rub, click - Extremities Extremities: pulses symmetrical, No edema Peripheral Pulses: within normal limits - Abdominal General gastrointestinal: Present: soft, non-tender, non-distended, normal bowel sounds Female genitourinary: Present: normal - Integumentary Integumentary: Present: clear, warm, dry - Musculoskeletal Musculoskeletal: right sided weakness - Psychiatric Psychiatric: appropriate mood/affect, intact judgment & insight, cooperative - Neurologic Neurologic: CNII-XII intact, focal deficits (Right hemiparesis), moves all extremities - Allied Health Allied health notes reviewed: nursing, case management HEART Score - HEART Score Troponin: Troponin T < 0.010 ng/mL (0.00-0.029) 07/31/21 13:37 Results - Labs CBC & Chem 7: 07/31/21 13:37 07/31/21 13:37 Labs: Laboratory Last Values WBC 7.0 K/mm3 (4.5-11.0) 07/31/21 13:37 RBC 4.89 M/mm3 (3.65-5.03) 07/31/21 13:37 Hgb 14.9 gm/dl (10.1-14.3) H 07/31/21 13:37 Hct 44.3 % (30.3-42.9) H 07/31/21 13:37 MCV 91 fl (79-97) 07/31/21 13:37 MCH 31 pg (28-32) 07/31/21 13:37 MCHC 34 % (30-34) 07/31/21 13:37 RDW 15.2 % (13.2-15.2) 07/31/21 13:37 Plt Count 208 K/mm3 (140-440) 07/31/21 13:37 Lymph % (Auto) 38.0 % (13.4-35.0) H 07/31/21 13:37 [place] % (Auto) 4.3 % (0.0-7.3) 07/31/21 13:37 Eos % (Auto) 6.2 % (0.0-4.3) H 07/31/21 13:37 Baso % (Auto) 1.9 % (0.0-1.8) H 07/31/21 13:37 Lymph # (Auto) 2.7 K/mm3 (1.2-5.4) 07/31/21 13:37 [place] # (Auto) 0.3 K/mm3 (0.0-0.8) 07/31/21 13:37 Eos # (Auto) 0.4 K/mm3 (0.0-0.4) 07/31/21 13:37 Baso # (Auto) 0.1 K/mm3 (0.0-0.1) 07/31/21 13:37 Seg Neutrophils % 49.6 % (40.0-70.0) 07/31/21 13:37 Seg Neutrophils # 3.5 K/mm3 (1.8-7.7) 07/31/21 13:37 PT 12.8 Sec. (12.2-14.9) 07/31/21 13:37 INR 0.87 (0.87-1.13) 07/31/21 13:37 APTT 30.9 Sec. (24.2-36.6) 07/31/21 13:37 Thrombin Time 21.4 Sec. (15.1-19.6) H 07/31/21 13:37 Sodium 139 mmol/L (137-145) 07/31/21 13:37 Potassium 3.9 mmol/L (3.6-5.0) 07/31/21 13:37 Chloride 98.4 mmol/L (98-107) 07/31/21 13:37 Carbon Dioxide 27 mmol/L (22-30) 07/31/21 13:37 Anion Gap 18 mmol/L 07/31/21 13:37 BUN 11 mg/dL (7-17) 07/31/21 13:37 Creatinine 1.1 mg/dL (0.6-1.2) 07/31/21 13:37 Estimated GFR 50 ml/min 07/31/21 13:37 BUN/Creatinine Ratio 10 % 07/31/21 13:37 Glucose 91 mg/dL (65-100) 07/31/21 13:37 POC Glucose 97 mg/dL (70-105) 07/31/21 12:56 Calcium 8.8 mg/dL (8.4-10.2) 07/31/21 13:37 Troponin T < 0.010 ng/mL (0.00-0.029) 07/31/21 13:37 Short CBC 07/31/21 Range/Units 13:37 WBC 7.0 (4.5-11.0) K/mm3 Hgb 14.9 H (10.1-14.3) gm/dl Hct 44.3 H (30.3-42.9) % Plt Count 208 (140-440) K/mm3 BMP 07/31/21 13:37 Sodium 139 Potassium 3.9 Chloride 98.4 Carbon Dioxide 27 BUN 11 Creatinine 1.1 Glucose 91 Calcium 8.8 Cardiac Enzymes 07/31/21 Range/Units 13:37 Troponin T < 0.010 (0.00-0.029) ng/mL - Imaging and Cardiology Imaging and Cardiology: Head CT No acute findings Head CT 8 There is mild irregularity of the cerebral branches, including the A3 segment of the left MANUEL as detailed above which may reflect atherosclerotic disease. There is no CTA evidence of large vessel occlusion. 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 There is mild to moderate stenosis involving origin of the dominant right vertebral artery neck CTA Assessment and Plan Advance Directives: Yes (Full code) VTE prophylaxis?: Chemical Plan of care discussed with patient/family: Yes - Patient Problems (1) Acute CVA (cerebrovascular accident) Current Visit: Yes Status: Acute Plan to address problem: Clinical findings consistent with acute CVA MRI and echocardiogram pending CVA protocol High intensity statins Physical therapy and Occupational Therapy Patient not a candidate for TPA because of the time elapsed Neurology consult (2) HTN (hypertension) Current Visit: No Status: Chronic Qualifiers: Hypertension type: primary hypertension Qualified Code(s): I10 - Essential (primary) hypertension Plan to address problem: Patient says she is hypertensive but the blood pressure readings in the emergency room were normal and she is not on any blood pressure medicine Patient to be initiated on blood pressure medicine if necessary (3) Hyperlipidemia Current Visit: No Status: Chronic Qualifiers: Hyperlipidemia type: mixed hyperlipidemia Qualified Code(s): E78.2 - Mixed hyperlipidemia Plan to address problem: Continue statins (4) Hypothyroidism Current Visit: No Status: Chronic Qualifiers: Hypothyroidism type: acquired Qualified Code(s): E03.9 - Hypothyroidism, unspecified Plan to address problem: Continue Levoxyl at 175 mcg Check TSH (5) DVT prophylaxis Current Visit: Yes Status: Acute Plan to address problem: On heparin and GI prophylaxis
[2021-07-31] MEDS ORDERED: NON-FORMULARY EACH (Albuterol Sulfate [Albuterol 0.63% Nebs] 0.63 MG/3 ML Vial.Neb) IH PRN (23:56)
[2021-07-31] MEDS ORDERED: ONDANSETRON 4 MG/2 ML INJ IV PRN (23:59)
[2021-07-31] MEDS ORDERED: METOCLOPRAMIDE 10 MG/2 ML INJ IV PRN (23:59)
[2021-07-31] MEDS ORDERED: ACETAMINOPHEN 325 MG TAB PO PRN (23:59)
[2021-08-01] MEDS ORDERED: ALBUTEROL 2.5 MG/3 ML NEBU IH PRN (00:24)
[2021-08-01] MEDS: GABAPENTIN 400 MG CAP PO SCH ×3 (01:15→16:23)
[2021-08-01] MEDS: BENZONATATE 100 MG CAP PO SCH ×4 (05:24→20:59)
[2021-08-01] MEDS: LEVOTHYROXINE 100 MCG TAB PO SCH (05:42)
[2021-08-01] MEDS: HYDROmorphone 1 MG/1 ML INJ IV PRN ×3 (05:59→16:23)
[2021-08-01] MEDS: IPRATROPIUM 0.02% NEBU 2.5 ML IH SCH (08:04)
[2021-08-01] MEDS ORDERED: LORazepam 2 MG/ML VIAL IV ONE (08:59)
--- NOTE | 2021-08-01 09:10 | Consultation ---
History of Present Illness Consult date: 08/01/21 Reason for Consult: right side weakness since yesterday ,hx of TIA,Hypot hyroidism History of present illness: Right upper extremity and right lower extremity since last night History of present illness: 60-year-old female with history of asthma and hypothyroidism comes in for right- sided weakness since last night. Also severe headache since 6:30 AM this morning. Patient did not seek immediate medical attention. No diplopia. No nasal regurgitation of fluids. Patient had a TIA about 5 years ago. No residual deficits. Takes aspirin prn but taking Ibuprofen frequently due to headache and pain ? . Patient states that she is in a homeless intermediate and cannot afford the medication. ED course-patient had persistent right upper and right lower extremity weakness with mild right facial weakness because of the elapsed time patient is not a candidate for TPA, nor thrombectomy today she is feeling slightly better had CT brain is unremarkable CTA brain and neck showed atherosclerotic changes diffuse more noted A3 segment Left MANUEL echo showed Ef#65-70% she is with hx of cancer thyroid currently on synthroid taking PRN with TSH#100 MRI brain is pending started on ASA and Lipitor - Past Medical History --Hypertension: Yes --(TIA) --COPD: Yes Additional medical history: Hypothyroidism Degenrativr Disc Disease - Surgical History Additional Surgical History: hysterectomy, thyroidectomy - Family History Family history: hypertension - Social History Smoking Status: Current Every Day Smoker (We discussed tobacco cessation x3 minutes) Substance Use Type: None - Medications Home Medications: Home Medications Medication Instructions Recorded Confirmed Last Taken Type Levothyroxine Sodium [Synthroid] 175 mcg PO DAILY #30 tablet 12/27/20 04/14/21 3 Months Ago Rx ~04/30/21 Albuterol Sulfate [Albuterol 0.63% 0.63 mg IH BID PRN #1 box 04/15/21 3 Months Ago Rx NEBS] ~04/30/21 Benzonatate [Tessalon Perles] 100 mg PO Q8HR #20 capsule 04/15/21 3 Months Ago Rx ~04/30/21 Ipratropium [Atrovent NEB] 0.5 mg IH Q8HRT #1 box 04/15/21 3 Months Ago Rx ~04/30/21 Nebulizer [Compact Compressor 1 each MC BID PRN #1 each 04/15/21 3 Months Ago Rx Nebulizer] ~04/30/21 Prednisone [predniSONE 10 mg 10 mg PO .TAPER #1 tab.ds.pk 04/15/21 3 Months Ago Rx (6-Day Pack, 21 Tabs)] ~04/30/21 Sulfamethoxazole/Trimethoprim 1 each PO BID #14 tablet 04/15/21 07/31/21 07/0 10/06 Rx [Bactrim DS TAB] 200 Gabapentin [Neurontin] 400 mg PO Q8H 07/31/21 07/31/21 3 Months Ago History ~04/30/21 Levothyroxine Sodium [Synthroid] 200 mcg PO DAILY 07/31/21 07/31/21 03/16/21 History Review of Systems ROS: Stated complaint: HEADACHE Other details as noted in HPI Comment: All other systems reviewed and negative Constitutional: denies: fever Eyes: as per HPI ENT: denies: throat pain Respiratory: denies: cough Cardiovascular: denies: chest pain Endocrine: denies: unexplained weight loss Gastrointestinal: denies: abdominal pain Genitourinary: denies: dysuria Musculoskeletal: denies: back pain Skin: denies: rash Neurological: as per HPI Hematological/Lymphatic: denies: easy bruising Past History Past Medical History: hypertension Medications and Allergies Allergies Allergy/AdvReac Type Severity Reaction Status Date / Time azithromycin Allergy Itching Verified 04/14/21 10:28 cephalexin [From Keflex] Allergy Unknown Verified 04/14/21 10:28 ketorolac [From Toradol] Allergy Unknown Verified 04/14/21 10:28 levofloxacin [From Levaquin] Allergy Swelling Verified 04/14/21 10:28 morphine Allergy Unknown Verified 04/14/21 10:28 naproxen Allergy Unknown Verified 04/14/21 10:28 Penicillins Allergy Unknown Verified 04/14/21 10:28 tramadol [From Ultram] Allergy Unknown Verified 04/14/21 10:28 Home Medications Medication Instructions Recorded Confirmed Last Taken Type Levothyroxine Sodium [Synthroid] 175 mcg PO DAILY #30 tablet 12/27/20 04/14/21 3 Months Ago Rx ~04/30/21 Albuterol Sulfate [Albuterol 0.63% 0.63 mg IH BID PRN #1 box 04/15/21 3 Months Ago Rx NEBS] ~04/30/21 Benzonatate [Tessalon Perles] 100 mg PO Q8HR #20 capsule 04/15/21 3 Months Ago Rx ~04/30/21 Ipratropium [Atrovent NEB] 0.5 mg IH Q8HRT #1 box 04/15/21 3 Months Ago Rx ~04/30/21 Nebulizer [Compact Compressor 1 each MC BID PRN #1 each 04/15/21 3 Months Ago Rx Nebulizer] ~04/30/21 Prednisone [predniSONE 10 mg 10 mg PO .TAPER #1 tab.ds.pk 04/15/21 3 Months Ago Rx (6-Day Pack, 21 Tabs)] ~04/30/21 Sulfamethoxazole/Trimethoprim 1 each PO BID #14 tablet 04/15/21 07/31/21 03/16/21 Rx [Bactrim DS TAB] 200 Gabapentin [Neurontin] 400 mg PO Q8H 07/31/21 07/31/21 3 Months Ago History ~04/30/21 Levothyroxine Sodium [Synthroid] 200 mcg PO DAILY 07/31/21 07/31/21 03/16/21 History Active Meds: Active Medications Labetalol HCl (Labetalol 20 Mg/4 Ml Inj) 10 mg IV Q5MIN PRN PRN Reason: to maintain SBP < 180 Past History Past Medical History: hypertension Medications and Allergies Allergies Allergy/AdvReac Type Severity Reaction Status Date / Time azithromycin Allergy Severe Anaphylaxis Verified 08/01/21 10:06 cephalexin [From Keflex] Allergy Severe Anaphylaxis Verified 08/01/21 10:06 ketorolac [From Toradol] Allergy Severe Anaphylaxis Verified 08/01/21 10:06 levofloxacin [From Levaquin] Allergy Severe Anaphylaxis Verified 08/01/21 10:06 Penicillins Allergy Severe Anaphylaxis Verified 08/01/21 10:06 Sulfa (Sulfonamide Allergy Severe TONGUE Verified 08/01/21 10:06 Antibiotics) SWELLING tramadol [From Ultram] Allergy Severe Anaphylaxis Verified 08/01/21 10:06 morphine Allergy Vomiting Verified 08/01/21 10:06 naproxen Allergy EYE AND Verified 08/01/21 10:06 HAND SWELLING Home Medications Medication Instructions Recorded Confirmed Last Taken Type Gabapentin [Neurontin] 400 mg PO Q8H 07/31/21 07/31/21 3 Months Ago History ~04/30/21 Levothyroxine Sodium [Synthroid] 200 mcg PO DAILY 07/31/21 07/31/21 03/16/21 History Amitriptyline [Elavil] 150 mg PO QHS 08/01/21 08/01/21 03/16/21 History Aspirin EC [Halfprin EC] 81 mg PO QDAY 08/01/21 08/01/21 03/16/21 History Active Meds: Active Medications Acetaminophen (Acetaminophen 325 Mg Tab) 650 mg PO Q4H PRN PRN Reason: Pain MILD(1-3)/Fever >100.5/GARCIA Albuterol (Albuterol 2.5 Mg/3 Ml Nebu) 1.25 mg IH BIDRT PRN PRN Reason: Shortness Of Breath Aspirin (Aspirin 325 Mg Tab) 325 mg PO QDAY [facility] Atorvastatin Calcium (Atorvastatin 40 Mg Tab) 40 mg PO QHS [facility] Benzonatate (Benzonatate 100 Mg Cap) 100 mg PO Q8HR [facility] Last Admin: 08/01/21 05:43 Dose: Not Given Documented by: Famotidine (Famotidine 20 Mg/2 Ml Inj) 20 mg IV BID [facility] Gabapentin (Gabapentin 400 Mg Cap) 400 mg PO Q8H [facility] Last Admin: 08/01/21 01:15 Dose: 400 mg Documented by: Heparin Sodium (Porcine) (Heparin 5,000 Unit/1 Ml Vial) 5,000 unit SUB-Q Q12HR [facility] Hydromorphone HCl (Hydromorphone 1 Mg/1 Ml Inj) 0.5 mg IV Q3H PRN PRN Reason: Pain , Severe (7-10) Last Admin: 08/01/21 05:59 Dose: 0.5 mg Documented by: Ipratropium [place] (Ipratropium 0.02% Nebu 2.5 Ml) 0.5 mg IH Q8HRT [facility] Labetalol HCl (Labetalol 20 Mg/4 Ml Inj) 10 mg IV Q5MIN PRN PRN Reason: to maintain SBP < 180 Levothyroxine Sodium (Levothyroxine 100 Mcg Tab) 200 mcg PO DAILY@0600 [facility] Last Admin: 08/01/21 05:42 Dose: 200 mcg Documented by: Metoclopramide HCl (Metoclopramide 10 Mg/2 Ml Inj) 10 mg IV Q6H PRN PRN Reason: Nausea And Vomiting Ondansetron HCl (Ondansetron 4 Mg/2 Ml Inj) 4 mg IV Q8H PRN PRN Reason: Nausea And Vomiting Oxycodone/Acetaminophen (Oxycodone /Acetaminophen 5-325mg Tab) 1 tab PO Q6H PRN PRN Reason: Pain, Moderate (4-6) Sodium Chloride (Sodium Chloride 0.9% 10 Ml Flush Syringe) 10 ml IV BID CHANTAL Sodium Chloride (Sodium Chloride 0.9% 10 Ml Flush Syringe) 10 ml IV PRN PRN PRN Reason: LINE FLUSH Physical Examination - Vital Signs Vital Signs: Vital Signs Temp Pulse Resp BP Pulse Ox 98.6 F 71 15 181/106 97 07/31/21 13:01 07/31/21 13:01 07/31/21 13:01 07/31/21 13:01 07/31/21 13:01 - Constitutional General appearance: comfortable - EENT EENT: Present: PERRL, mucous membranes moist - Respiratory Respiratory: Present: chest non-tender, lungs clear, rhonchi - Cardiovascular Cardiovascular: Present: regular rate, normal S1, normal S2 Extremities: Present: no peripheral edema bilatateraly, no clubbing, cyanosis - Gastrointestinal Gastrointestinal: Present: normoactive bowel sounds - Integumentary Integumentary: Present: normal - Neurologic Cranial nerve examination: PERRL, EOMI, intact Speech examination: intact Sensorimotor examination: intact Detailed motor examination: grossly full strength in, other (no sugnificant weakness but drop right arm with no clear pronator drift as well as give away weakness right leg, gate not done ) - Level of Consciousness 1a. Level of Consciousness: alert/keenly responsive - LOC Questions 1b. LOC Questions: answers both correctly - LOC Command 1c. LOC Commands: performs tasks correctly - Best Gaze 2. Best Gaze: normal - Visual 3. Visual: no visual loss - Facial Palsy 4. Facial Palsy: normal symmetrical movement - Motor Arm 5a. Motor Arm Left: no drift 5b. Motor Arm Right: no drift - Motor Leg 6a. Motor Leg Left: no drift 6b. Motor Leg Right: no drift - Limb Ataxia 7. Limb Ataxia: absent - Sensory 8. Sensory: normal - Best Language 9. Best Language: no aphasia - Dysarthria 10. Dysarthria: normal - Extinction and Inattention 11. Extinction/Inattention: no abnormality (she is with right upper and lower give away weakness but no clear cranial nerves abnormalities no clear pronator drift is noted !!!) - Scoring Total Score: 0 Stroke Severity: No Stroke Symptoms Results - Laboratory Findings CBC and BMP: 07/31/21 13:37 07/31/21 13:37 Abnormal Lab Findings: Abnormal Labs 07/31/21 07/31/21 08/01/21 13:37 13:37 07:59 Hgb 14.9 H Hct 44.3 H Lymph % (Auto) 38.0 H Eos % (Auto) 6.2 H Baso % (Auto) 1.9 H Thrombin Time 21.4 H TSH 100.000 H Assessment and Plan Assessment and Plan 60-year-old female with history of asthma and hypothyroidism comes in for right- sided weakness since last night. Also severe headache since 6:30 AM this morning. Patient did not seek immediate medical attention - Patient Problems # Acute right side weakness since yesterday -she is with give away weakness but no clear cranial nerves involvement nor pronator drift is noted -NIH#0 -Ct brain is unremarkable -CTA brain and neck showed atherosclerotic changes diffuse with Left MANUEL stenosis -MRI brain is pending -echo showed EF#65-70% -LDL is pending -TSH#100 -she is started on ASA 325 mg daily and lipitor 40 mg -pt/st evaluate # HTN (hypertension) -Patient says she is hypertensive but the blood pressure readings in the e mergency room were normal and she is not on any blood pressure medicine -Patient to be initiated on blood pressure medicine if necessary # Hyperlipidemia -Continue statins -LDL is pending # Hypothyroidism -Continue Levoxyl at 175 mcg -Check TSH#100 # DVT prophylaxis -On heparin and GI prophylaxis will follow findings are d/w pt.
[2021-08-01] MEDS: HEPARIN 5,000 UNIT/1 ML VIAL SUB-Q SCH ×2 (10:39→21:00)
[2021-08-01] MEDS: FAMOTIDINE 20 MG/2 ML INJ IV SCH ×2 (10:39→20:59)
[2021-08-01] MEDS: ASPIRIN 325 MG TAB PO SCH (10:40)
--- NOTE | 2021-08-01 12:23 | Progress Note ---
Assessment and Plan Assessment and plan: History of present illness: 60-year-old female with history of asthma and hypothyroidism comes in for right- sided weakness since last night. Also severe headache since 6:30 AM this morning. Patient did not seek immediate medical attention. No diplopia. No nasal regurgitation of fluids. Patient had a TIA about 5 years ago. No residual deficits. Takes aspirin every day. Patient states that she is in a homeless [facility] and cannot afford the medication. ED course-patient had persistent right upper and right lower extremity weakness with mild right facial weakness because of the elapsed time patient is not a candidate for TPA Hospital course to date: 08/01: MRI and Carotid doppler pending. Will follow neuro recommendations. Assessment and plan: - Patient Problems (1) Acute CVA (cerebrovascular accident) Current Visit: Yes Status: Acute Plan to address problem: Clinical findings consistent with acute CVA Initial imaging study: Head CT No acute findings Head CTA There is mild irregularity of the cerebral branches, including the A3 segment of the left MANUEL as detailed above which may reflect atherosclerotic disease. There is no CTA evidence of large vessel occlusion. 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 There is mild to moderate stenosis involving origin of the dominant right vertebral artery neck CTA Carotid Doppler pending MRI Brain pending echocardiogram: LVEF 65-70% High intensity statins Physical therapy and Occupational Therapy Patient not a candidate for TPA because of the time elapsed Neurology consult (2) HTN (hypertension) Current Visit: No Status: Chronic Qualifiers: Hypertension type: primary hypertension Qualified Code(s): I10 - Essential (primary) hypertension Plan to address problem: Patient says she is hypertensive but the blood pressure readings in the emergency room were normal and she is not on any blood pressure medicine Patient to be initiated on blood pressure medicine if necessary (3) Hyperlipidemia Current Visit: No Status: Chronic Qualifiers: Hyperlipidemia type: mixed hyperlipidemia Qualified Code(s): E78.2 - Mixed hyperlipidemia Plan to address problem: Continue statins (4) Hypothyroidism Current Visit: No Status: Chronic Qualifiers: Hypothyroidism type: acquired Qualified Code(s): E03.9 - Hypothyroidism, unspecified Plan to address problem: Continue Levoxyl at 175 mcg Check TSH (5) DVT prophylaxis Current Visit: Yes Status: Acute Plan to address problem: On heparin and GI prophylaxis History Interval history: No acute complaints this morning. Hospitalist Physical - Physical exam Narrative exam: Physical Exam: - Constitutional General appearance: comfortable - EENT EENT: Present: PERRL, mucous membranes moist - Respiratory Respiratory: Present: chest non-tender, lungs clear, rhonchi - Cardiovascular Cardiovascular: Present: regular rate, normal S1, normal S2 Extremities: Present: no peripheral edema bilatateraly, no clubbing, cyanosis - Gastrointestinal Gastrointestinal: Present: normoactive bowel sounds - Integumentary Integumentary: Present: normal - Neurologic Cranial nerve examination: PERRL, EOMI, intact Speech examination: intact Sensorimotor examination: intact Detailed motor examination: grossly full strength in, other (no sugnificant weakness but drop right arm with no clear pronator drift as well as give away weakness right leg, gate not done ) - Level of Consciousness 1a. Level of Consciousness: alert/keenly responsive - LOC Questions 1b. LOC Questions: answers both correctly - LOC Command 1c. LOC Commands: performs tasks correctly - Best Gaze 2. Best Gaze: normal - Visual 3. Visual: no visual loss - Facial Palsy 4. Facial Palsy: normal symmetrical movement - Motor Arm 5a. Motor Arm Left: no drift 5b. Motor Arm Right: no drift - Motor Leg 6a. Motor Leg Left: no drift 6b. Motor Leg Right: no drift - Limb Ataxia 7. Limb Ataxia: absent - Sensory 8. Sensory: normal - Best Language 9. Best Language: no aphasia - Dysarthria 10. Dysarthria: normal - Extinction and Inattention 11. Extinction/Inattention: no abnormality , she is with right upper and lower give away weakness but no clear cranial nerves abnormalities no clear pronator drift is noted - Constitutional Vitals: Temp Pulse Resp BP Pulse Ox 98.0 F 66 18 133/72 96 08/01/21 10:54 08/01/21 10:54 08/01/21 10:54 08/01/21 10:54 08/01/21 10:54 General appearance: Present: no acute distress, well-nourished HEART Score - HEART Score Troponin: Troponin T < 0.010 ng/mL (0.00-0.029) 07/31/21 13:37 Results - Labs CBC & Chem 7: 07/31/21 13:37 07/31/21 13:37 Labs: Laboratory Last Values WBC 7.0 K/mm3 (4.5-11.0) 07/31/21 13:37 RBC 4.89 M/mm3 (3.65-5.03) 07/31/21 13:37 Hgb 14.9 gm/dl (10.1-14.3) H 07/31/21 13:37 Hct 44.3 % (30.3-42.9) H 07/31/21 13:37 MCV 91 fl (79-97) 07/31/21 13:37 MCH 31 pg (28-32) 07/31/21 13:37 MCHC 34 % (30-34) 07/31/21 13:37 RDW 15.2 % (13.2-15.2) 07/31/21 13:37 Plt Count 208 K/mm3 (140-440) 07/31/21 13:37 Lymph % (Auto) 38.0 % (13.4-35.0) H 07/31/21 13:37 [place] % (Auto) 4.3 % (0.0-7.3) 07/31/21 13:37 Eos % (Auto) 6.2 % (0.0-4.3) H 07/31/21 13:37 Baso % (Auto) 1.9 % (0.0-1.8) H 07/31/21 13:37 Lymph # (Auto) 2.7 K/mm3 (1.2-5.4) 07/31/21 13:37 [place] # (Auto) 0.3 K/mm3 (0.0-0.8) 07/31/21 13:37 Eos # (Auto) 0.4 K/mm3 (0.0-0.4) 07/31/21 13:37 Baso # (Auto) 0.1 K/mm3 (0.0-0.1) 07/31/21 13:37 Seg Neutrophils % 49.6 % (40.0-70.0) 07/31/21 13:37 Seg Neutrophils # 3.5 K/mm3 (1.8-7.7) 07/31/21 13:37 PT 12.8 Sec. (12.2-14.9) 07/31/21 13:37 INR 0.87 (0.87-1.13) 07/31/21 13:37 APTT 30.9 Sec. (24.2-36.6) 07/31/21 13:37 Thrombin Time 21.4 Sec. (15.1-19.6) H 07/31/21 13:37 Sodium 139 mmol/L (137-145) 07/31/21 13:37 Potassium 3.9 mmol/L (3.6-5.0) 07/31/21 13:37 Chloride 98.4 mmol/L (98-107) 07/31/21 13:37 Carbon Dioxide 27 mmol/L (22-30) 07/31/21 13:37 Anion Gap 18 mmol/L 07/31/21 13:37 BUN 11 mg/dL (7-17) 07/31/21 13:37 Creatinine 1.1 mg/dL (0.6-1.2) 07/31/21 13:37 Estimated GFR 50 ml/min 07/31/21 13:37 BUN/Creatinine Ratio 10 % 07/31/21 13:37 Glucose 91 mg/dL (65-100) 07/31/21 13:37 POC Glucose 97 mg/dL (70-105) 07/31/21 12:56 Calcium 8.8 mg/dL (8.4-10.2) 07/31/21 13:37 Troponin T < 0.010 ng/mL (0.00-0.029) 07/31/21 13:37 TSH 100.000 mlU/mL (0.270-4.200) H 08/01/21 07:59 Active Medications - Current Medications Current Medications: Generic Name Dose Route Start Last Admin Trade Name Freq PRN Reason Stop Dose Admin Acetaminophen 650 mg 07/31/21 23:59 Acetaminophen 325 Mg Tab PO Q4H PRN Pain MILD(1-3)/Fever >100.5/GARCIA Albuterol 1.25 mg 08/01/21 00:24 Albuterol 2.5 Mg/3 Ml Nebu IH BIDRT PRN Shortness Of Breath Aspirin 325 mg 08/01/21 10:00 08/01/21 10:40 Aspirin 325 Mg Tab PO 325 mg QDAY CHANTAL Administration Atorvastatin Calcium 40 mg 08/01/21 22:00 Atorvastatin 40 Mg Tab PO QHS CHANTAL Benzonatate 100 mg 08/01/21 06:00 08/01/21 05:43 Benzonatate 100 Mg Cap PO Not Given Q8HR CHANTAL Famotidine 20 mg 08/01/21 10:00 08/01/21 10:39 Famotidine 20 Mg/2 Ml Inj IV 20 mg BID CHANTAL Administration Gabapentin 400 mg 08/01/21 00:00 08/01/21 09:06 Gabapentin 400 Mg Cap PO 400 mg Q8H CHANTAL Administration Heparin Sodium (Porcine) 5,000 unit 08/01/21 10:00 08/01/21 10:39 Heparin 5,000 Unit/1 Ml Vial SUB-Q 5,000 unit Q12HR CHANTAL Administration Hydromorphone HCl 0.5 mg 07/31/21 23:59 08/01/21 09:11 Hydromorphone 1 Mg/1 Ml Inj IV 0.5 mg Q3H PRN Administration Pain , Severe (7-10) Ipratropium [place] 0.5 mg 08/01/21 00:00 08/01/21 08:04 Ipratropium 0.02% Nebu 2.5 Ml IH 0.5 mg Q8HRT CHANTAL Administration Labetalol HCl 10 mg 07/31/21 12:53 Labetalol 20 Mg/4 Ml Inj IV Q5MIN PRN to maintain SBP < 180 Levothyroxine Sodium 200 mcg 08/01/21 06:00 08/01/21 05:42 Levothyroxine 100 Mcg Tab PO 200 mcg DAILY@0600 CHANTAL Administration Metoclopramide HCl 10 mg 07/31/21 23:59 Metoclopramide 10 Mg/2 Ml Inj IV Q6H PRN Nausea And Vomiting Ondansetron HCl 4 mg 07/31/21 23:59 Ondansetron 4 Mg/2 Ml Inj IV Q8H PRN Nausea And Vomiting Oxycodone/Acetaminophen 1 tab 07/31/21 23:59 Oxycodone /Acetaminophen 5-325mg Tab PO Q6H PRN Pain, Moderate (4-6) Sodium Chloride 10 ml 08/01/21 10:00 08/01/21 12:07 Sodium Chloride 0.9% 10 Ml Flush Syringe IV 10 ml BID CHANTAL Administration Sodium Chloride 10 ml 07/31/21 23:59 Sodium Chloride 0.9% 10 Ml Flush Syringe IV PRN PRN LINE FLUSH
[2021-08-01 13:29] LABS: Chol/HDL Ratio 10.95 %
--- NOTE | 2021-08-01 13:52 | Vascular Lab Report ---
Duplex carotid sonography with spectral analysis Indication: stroke Mild carotid atherosclerotic changes are seen. In the right internal carotid artery no significant velocity elevations are seen to suggest a hemodyn amically-significant stenosis. Peak systolic velocity of the right ICA is 56 cm/s. In the left internal carotid artery no significant velocity elevations are seen to suggest a hemodyna mically-significant stenosis. Peak systolic velocity of the left ICA is 101 cm/s. Right ICA/CCA ratio: 0.72 Left ICA/CCA ratio: 1.62 Vertebral flow is antegrade bilaterally. Impression: No evidence of hemodynamically-significant stenosis by NASCET-type criteria. . Signer Name: Spencer Vieyra MD Signed: 08/01/2021 1:48 PM Workstation Name: [id number]
--- NOTE | 2021-08-01 15:41 | Magnetic Resonance Report ---
MR brain wo con INDICATION / CLINICAL INFORMATION: 60 years Female; stroke, rt sided weakness. TECHNIQUE: Multiplanar, multisequence MR images of the brain were obtained. COMPARISON: 07/31/2021 FINDINGS: BRAIN / INTRACRANIAL CONTENTS: No acute hemorrhage, mass effect, midline shift, hydrocephalus, or acu te, large territorial infarct. No chronic infarct or atrophy. No significant white matter abnormality . CRANIOCERVICAL JUNCTION: No significant abnormality. VASCULAR FLOW-VOIDS: No significant abnormality. ORBITS: No significant abnormality of visualized orbits. SINUSES / MASTOIDS: Mild to moderate mucosal thickening in the ethmoids, maxillary antra, sphenoid si nuses, and mastoid air cells. ADDITIONAL FINDINGS: None. IMPRESSION: 1. No focal mass, hemorrhage, hydrocephalus, or acute ischemia. Signer Name: Ethan Burroughs MD, III Signed: 08/01/2021 3:36 PM Workstation Name: [id number]
[2021-08-01] MEDS: oxyCODONE /ACETAMINOPHEN 5-325MG TAB PO PRN (20:56)
[2021-08-02] MEDS: IPRATROPIUM 0.02% NEBU 2.5 ML IH SCH (00:20)
[2021-08-02] MEDS: GABAPENTIN 400 MG CAP PO SCH ×3 (00:29→16:32)
[2021-08-02] MEDS: HYDROmorphone 1 MG/1 ML INJ IV PRN ×4 (00:29→15:31)
[2021-08-02] MEDS: oxyCODONE /ACETAMINOPHEN 5-325MG TAB PO PRN ×3 (03:28→21:45)
[2021-08-02] MEDS: LEVOTHYROXINE 100 MCG TAB PO SCH (05:43)
[2021-08-02] MEDS: BENZONATATE 100 MG CAP PO SCH ×4 (05:52→21:46)
[2021-08-02 06:11] LABS: Alanine Aminotransferase 12 units/L (7-56); Albumin 4.1 g/dL (3.9-5); BUN/Creatinine Ratio 15; Blood Urea Nitrogen 16 mg/dL (7-17); Calcium 8.2 mg/dL (8.4-10.2); Hemolysis Index 3
[2021-08-02 06:18] LABS: Basophils # (Auto) 0.1 K/mm3 (0.0-0.1); Basophils % (Auto) 1.5 % (0.0-1.8); Eosinophils # (Auto) 0.4 K/mm3 (0.0-0.4); Eosinophils % (Auto) 5.1 % (0.0-4.3); Hematocrit 41.3 % (30.3-42.9); Hemoglobin 13.3 gm/dl (10.1-14.3); Lymphocytes # (Auto) 2.9 K/mm3 (1.2-5.4); Lymphocytes % (Auto) 42.2 % (13.4-35.0); Mean Corpuscular HGB Conc 32 % (30-34); Mean Corpuscular Volume 92 fl (79-97); Monocytes # (Auto) 0.3 K/mm3 (0.0-0.8); Monocytes % (Auto) 4.7 % (0.0-7.3); Platelet Count 171 K/mm3 (140-440); Red Cell Distribution Width 14.9 % (13.2-15.2)
--- NOTE | 2021-08-02 08:38 | Electrocardiograph Report ---
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
[2021-08-02] MEDS: ASPIRIN 325 MG TAB PO SCH (09:12)
[2021-08-02] MEDS: HEPARIN 5,000 UNIT/1 ML VIAL SUB-Q SCH ×2 (09:12→21:46)
[2021-08-02] MEDS: FAMOTIDINE 20 MG/2 ML INJ IV SCH ×2 (09:12→22:45)
[2021-08-02] MEDS ORDERED: LORazepam 2 MG/ML VIAL IV SCH (10:00)
--- NOTE | 2021-08-02 11:15 | Progress Note ---
Assessment and Plan Assessment and plan: History of present illness: 60-year-old female with history of asthma and hypothyroidism comes in for right- sided weakness since last night. Also severe headache since 6:30 AM this morning. Patient did not seek immediate medical attention. No diplopia. No nasal regurgitation of fluids. Patient had a TIA about 5 years ago. No residual deficits. Takes aspirin every day. Patient states that she is in a homeless nursing home and cannot afford the medication. ED course-patient had persistent right upper and right lower extremity weakness with mild right facial weakness because of the elapsed time patient is not a candidate for TPA Hospital course to date: 08/01: MRI and Carotid doppler pending. Will follow neuro recommendations. 08/02: MRI negative, Carotid doppler did not show clinically significant occlusions. Patient notes severe lower back pain. Given RUE and RLE weakness, Will obtain MRI of L spine and C spine MRI. Plan for potential d/c with [facility] +rolling walker given PT recs. Assessment and plan: - Patient Problems (1) Transient Ischemic Attack Clinical findings consistent with acute CVA, RUE and RLE weakness, rt facial droop. Initial imaging study: Head CT No acute findings Head CTA There is mild irregularity of the cerebral branches, including the A3 segment of the left MANUEL as detailed above which may reflect atherosclerotic disease. There is no CTA evidence of large vessel occlusion. 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 MRI Brain negative for acute findings echocardiogram: LVEF 65-70% High intensity statins A1c: 5.8 Physical therapy and Occupational Therapy Patient not a candidate for TPA because of the time elapsed Neurology consult C spine and L spine MRI;s ordered due to patient c/o lower back pain, RUE, RLE weakness and negative cva workup thus far. (2) HTN (hypertension) Patient says she is hypertensive but the blood pressure readings in the emergency room were normal and she is not on any blood pressure medicine Patient to be initiated on blood pressure medicine if necessary (3) Hyperlipidemia LDL 341 Continue statins (4) Hypothyroidism history of thyroidectomy due to thyroid CA. Continue Levoxyl at 200 mcg Check TSH (4) Back Pain - Ordered L spine MRI. (5) DVT prophylaxis On heparin and GI prophylaxis History Interval history: Patient complaining of lower back pain. Hospitalist Physical - Physical exam Narrative exam: Physical Exam: - Constitutional General appearance: comfortable - EENT EENT: Present: PERRL, mucous membranes moist - Respiratory Respiratory: Present: chest non-tender, lungs clear, rhonchi - Cardiovascular Cardiovascular: Present: regular rate, normal S1, normal S2 Extremities: Present: no peripheral edema bilatateraly, no clubbing, cyanosis - Gastrointestinal Gastrointestinal: Present: normoactive bowel sounds - Integumentary Integumentary: Present: normal - Neurologic Cranial nerve examination: PERRL, EOMI, intact Speech examination: intact Sensorimotor examination: intact Detailed motor examination: grossly full strength in, other (no sugnificant weakness but drop right arm with no clear pronator drift as well as give away weakness right leg, gate not done ) - Level of Consciousness 1a. Level of Consciousness: alert/keenly responsive - LOC Questions 1b. LOC Questions: answers both correctly - LOC Command 1c. LOC Commands: performs tasks correctly - Best Gaze 2. Best Gaze: normal - Visual 3. Visual: no visual loss - Facial Palsy 4. Facial Palsy: normal symmetrical movement - Motor Arm 5a. Motor Arm Left: no drift 5b. Motor Arm Right: no drift - Motor Leg 6a. Motor Leg Left: no drift 6b. Motor Leg Right: no drift - Limb Ataxia 7. Limb Ataxia: absent - Sensory 8. Sensory: normal - Best Language 9. Best Language: no aphasia - Dysarthria 10. Dysarthria: normal - Extinction and Inattention 11. Extinction/Inattention: no abnormality , she is with right upper and lower give away weakness but no clear cranial nerves abnormalities no clear pronator drift is noted - Constitutional Vitals: Temp Pulse Resp BP Pulse Ox 98.6 F 62 20 129/86 96 08/02/21 08:11 08/02/21 08:11 08/02/21 08:11 08/02/21 08:11 08/02/21 08:11 General appearance: Present: no acute distress, well-nourished HEART Score - HEART Score Troponin: Troponin T < 0.010 ng/mL (0.00-0.029) 07/31/21 13:37 Results - Labs CBC & Chem 7: 08/02/21 04:31 08/02/21 04:31 Labs: Laboratory Last Values WBC 6.9 K/mm3 (4.5-11.0) 08/02/21 04:31 RBC 4.50 M/mm3 (3.65-5.03) 08/02/21 04:31 Hgb 13.3 gm/dl (10.1-14.3) 08/02/21 04:31 Hct 41.3 % (30.3-42.9) 08/02/21 04:31 MCV 92 fl (79-97) 08/02/21 04:31 MCH 30 pg (28-32) 08/02/21 04:31 MCHC 32 % (30-34) 08/02/21 04:31 RDW 14.9 % (13.2-15.2) 08/02/21 04:31 Plt Count 171 K/mm3 (140-440) 08/02/21 04:31 Lymph % (Auto) 42.2 % (13.4-35.0) H 08/02/21 04:31 [place] % (Auto) 4.7 % (0.0-7.3) 08/02/21 04:31 Eos % (Auto) 5.1 % (0.0-4.3) H 08/02/21 04:31 Baso % (Auto) 1.5 % (0.0-1.8) 08/02/21 04:31 Lymph # (Auto) 2.9 K/mm3 (1.2-5.4) 08/02/21 04:31 [place] # (Auto) 0.3 K/mm3 (0.0-0.8) 08/02/21 04:31 Eos # (Auto) 0.4 K/mm3 (0.0-0.4) 08/02/21 04:31 Baso # (Auto) 0.1 K/mm3 (0.0-0.1) 08/02/21 04:31 Seg Neutrophils % 46.5 % (40.0-70.0) 08/02/21 04:31 Seg Neutrophils # 3.2 K/mm3 (1.8-7.7) 08/02/21 04:31 PT 12.8 Sec. (12.2-14.9) 07/31/21 13:37 INR 0.87 (0.87-1.13) 07/31/21 13:37 APTT 30.9 Sec. (24.2-36.6) 07/31/21 13:37 Thrombin Time 21.4 Sec. (15.1-19.6) H 07/31/21 13:37 Sodium 139 mmol/L (137-145) 08/02/21 04:31 Potassium 4.1 mmol/L (3.6-5.0) 08/02/21 04:31 Chloride 98.5 mmol/L (98-107) 08/02/21 04:31 Carbon Dioxide 25 mmol/L (22-30) 08/02/21 04:31 Anion Gap 20 mmol/L 08/02/21 04:31 BUN 16 mg/dL (7-17) 08/02/21 04:31 Creatinine 1.1 mg/dL (0.6-1.2) 08/02/21 04:31 Estimated GFR 50 ml/min 08/02/21 04:31 BUN/Creatinine Ratio 15 % 08/02/21 04:31 Glucose 93 mg/dL (65-100) 08/02/21 04:31 POC Glucose 97 mg/dL (70-105) 07/31/21 12:56 Hemoglobin A1c 5.8 % (4-6) 08/01/21 Unknown Calcium 8.2 mg/dL (8.4-10.2) L 08/02/21 04:31 Total Bilirubin < 0.20 mg/dL (0.1-1.2) 08/02/21 04:31 AST 34 units/L (5-40) 08/02/21 04:31 ALT 12 units/L (7-56) 08/02/21 04:31 Alkaline Phosphatase 69 units/L (35-129) 08/02/21 04:31 Troponin T < 0.010 ng/mL (0.00-0.029) 07/31/21 13:37 Total Protein 6.2 g/dL (6.3-8.2) L 08/02/21 04:31 Albumin 4.1 g/dL (3.9-5) 08/02/21 04:31 Albumin/Globulin Ratio 2.0 % 08/02/21 04:31 Triglycerides 201 mg/dL (2-149) H 08/01/21 Unknown Cholesterol 438 mg/dL (50-199) H 08/01/21 Unknown LDL Cholesterol Direct 341 mg/dL (50-130) H 08/01/21 Unknown HDL Cholesterol 40 mg/dL (40-59) 08/01/21 Unknown Cholesterol/HDL Ratio 10.95 % 08/01/21 Unknown TSH 100.000 mlU/mL (0.270-4.200) H 08/01/21 07:59 Velázquez/IV: Voiding Method Toilet Active Medications - Current Medications Current Medications: Generic Name Dose Route Start Last Admin Trade Name Freq PRN Reason Stop Dose Admin Acetaminophen 650 mg 07/31/21 23:59 Acetaminophen 325 Mg Tab PO Q4H PRN Pain MILD(1-3)/Fever >100.5/GARCIA Albuterol 1.25 mg 08/01/21 00:24 Albuterol 2.5 Mg/3 Ml Nebu IH BIDRT PRN Shortness Of Breath Aspirin 325 mg 08/01/21 10:00 08/02/21 09:12 Aspirin 325 Mg Tab PO 325 mg QDAY CHANTAL Administration Atorvastatin Calcium 80 mg 08/01/21 22:00 08/01/21 21:00 Atorvastatin 40 Mg Tab PO 80 mg QHS CHANTAL Administration Benzonatate 100 mg 08/01/21 06:00 08/02/21 05:52 Benzonatate 100 Mg Cap PO Not Given Q8HR CHANTAL Famotidine 20 mg 08/01/21 10:00 08/02/21 09:12 Famotidine 20 Mg/2 Ml Inj IV 20 mg BID CHANTAL Administration Gabapentin 400 mg 08/01/21 00:00 08/02/21 09:12 Gabapentin 400 Mg Cap PO 400 mg Q8H CHANTAL Administration Heparin Sodium (Porcine) 5,000 unit 08/01/21 10:00 08/02/21 09:12 Heparin 5,000 Unit/1 Ml Vial SUB-Q 5,000 unit Q12HR CHANTAL Administration Hydromorphone HCl 0.5 mg 07/31/21 23:59 08/02/21 09:12 Hydromorphone 1 Mg/1 Ml Inj IV 0.5 mg Q3H PRN Administration Pain , Severe (7-10) Ipratropium [place] 0.5 mg 08/01/21 00:00 08/02/21 00:20 Ipratropium 0.02% Nebu 2.5 Ml IH Not Given Q8HRT [facility] Labetalol HCl 10 mg 07/31/21 12:53 Labetalol 20 Mg/4 Ml Inj IV Q5MIN PRN to maintain SBP < 180 Levothyroxine Sodium 200 mcg 08/01/21 06:00 08/02/21 05:43 Levothyroxine 100 Mcg Tab PO 200 mcg DAILY@0600 [facility] Administration Lorazepam 1 mg 08/02/21 10:00 Lorazepam 2 Mg/Ml Vial IV 08/02/21 17:00 ONCE@1000 [facility] Metoclopramide HCl 10 mg 07/31/21 23:59 Metoclopramide 10 Mg/2 Ml Inj IV Q6H PRN Nausea And Vomiting Nicotine 14 mg 08/02/21 11:00 Nicotine 14 Mg/24 Hr Patch TD QDAY [facility] Ondansetron HCl 4 mg 07/31/21 23:59 Ondansetron 4 Mg/2 Ml Inj IV Q8H PRN Nausea And Vomiting Oxycodone/Acetaminophen 1 tab 07/31/21 23:59 08/02/21 03:28 Oxycodone /Acetaminophen 5-325mg Tab PO 1 tab Q6H PRN Administration Pain, Moderate (4-6) Sodium Chloride 10 ml 08/01/21 10:00 08/02/21 09:12 Sodium Chloride 0.9% 10 Ml Flush Syringe IV 10 ml BID CHANTAL Administration Sodium Chloride 10 ml 07/31/21 23:59 Sodium Chloride 0.9% 10 Ml Flush Syringe IV PRN PRN LINE FLUSH
[2021-08-02] MEDS ORDERED: FLU VACC QUAD 2021-22(6MOS UP)/PF 60 MCG/0.5 ML SYRINGE IM ONE (12:00)
[2021-08-02] MEDS: NICOTINE 14 MG/24 HR PATCH TD SCH (12:15)
--- NOTE | 2021-08-02 13:08 | Progress Note ---
Assessment and Plan Assessment and Plan 60-year-old female with history of asthma and hypothyroidism comes in for right- sided weakness since last night. Also severe headache since 6:30 AM this morning. Patient did not seek immediate medical attention - Patient Problems # Acute right side weakness since yesterday -she is with give away weakness but no clear cranial nerves involvement nor pronator drift is noted -NIH#0 -Ct brain is unremarkable -CTA brain and neck showed atherosclerotic changes diffuse with Left MANUEL stenosis -MRI brain is unremarkable -echo showed EF#65-70% -LDL is#340 -TSH#100 -she is started on ASA 325 mg daily and lipitor 40 mg -pt/st evaluate # Diffuse myalgia - according to her she is with hx of arthritis ? -will send for labs -stop narcotic -ultram 50 mg bid prn -avoid NSAID due to gastritis -Pt therapy # HTN (hypertension) -Patient says she is hypertensive but the blood pressure readings in the emergency room were normal and she is not on any blood pressure medicine -Patient to be initiated on blood pressure medicine if necessary # Hyperlipidemia -Continue statins -LDL is pending # Hypothyroidism -Continue Levoxyl at 175 mcg -Check TSH#100 # DVT prophylaxis -On heparin and GI prophylaxis will follow findings are d/w pt. Subjective Date of service: 08/02/21 Principal diagnosis: weakness diffuse and joint pain Interval history: according to pt. she is still feeling weak but now is due to pain and tenderness in her joint and swelling according to her she stopped taking Ibuprofen due to stomach problem her brain MRI showed no acute event US acrotid is unremarkable LDL#340 Objective - Vital Sign Vital Signs - 12hr 08/02/21 08/02/21 08/02/21 04:54 08:00 08:11 Temperature 98.4 F 98.6 F Pulse Rate 61 62 Respiratory 18 20 Rate Blood Pressure 142/83 129/86 O2 Sat by Pulse 95 96 96 Oximetry 08/02/21 12:07 Temperature 99.0 F Pulse Rate 65 Respiratory 20 Rate Blood Pressure 147/95 O2 Sat by Pulse 95 Oximetry - General Apperance Constitutional: uncomfortable - EENT EENT: PERRL, mucous membranes moist - Respiratory Respiratory: chest non-tender, lungs clear, rhonchi - Cardiovascular Cardiovascular: regular rate, normal S1, normal S2 Extremities: no peripheral edema bilat, no clubbing, cyanosis - Gastrointestinal Gastrointestinal: normoactive bowel sounds - Integumentary Integumentary: normal - Neurologic Cranial nerve examination: PERRL, EOMI, intact Speech examination: intact Detailed motor examination: grossly full strength in - Laboratory Findings CBC and BMP: 08/02/21 04:31 08/02/21 04:31 Abnormal Lab Findings: Abnormal Labs 07/31/21 07/31/21 08/01/21 13:37 13:37 07:59 Hgb 14.9 H Hct 44.3 H Lymph % (Auto) 38.0 H Eos % (Auto) 6.2 H Baso % (Auto) 1.9 H Thrombin Time 21.4 H Calcium Total Protein Triglycerides Cholesterol LDL Cholesterol Direct TSH 100.000 H 08/01/21 08/02/21 08/02/21 Unknown 04:31 04:31 Hgb Hct Lymph % (Auto) 42.2 H Eos % (Auto) 5.1 H Baso % (Auto) Thrombin Time Calcium 8.2 L Total Protein 6.2 L Triglycerides 201 H Cholesterol 438 H LDL Cholesterol Direct 341 H TSH
--- NOTE | 2021-08-02 15:21 | Magnetic Resonance Report ---
MR cervical spine wo/w con INDICATION / CLINICAL INFORMATION: 60 years Female; Back Pain Patient claustrophobic, patient motion, best possible exam.. TECHNIQUE: Multisequence, multiplanar images of the cervical spine were obtained. COMPARISON: None available. FINDINGS: CRANIOCERVICAL JUNCTION:No significant abnormality. ALIGNMENT: There is no significant spondylolisthesis of the cervical spine. VERTEBRAE:The motion degrades image quality despite repeat imaging. However, there is notable disc sp shannan narrowing with adjacent endplate edema at C6-7. Milder findings are noted at C4-5 and C5-6. VISUALIZED SPINAL CORD: The cervical spinal cord appears to demonstrate appropriate signal intensity on the combination of sequences. [id number]-OL-[id number] ANALYSIS: C2-3: No significant abnormality. C3-4: No significant abnormality. C4-5: The posterior spondylosis appears to slightly flatten the ventral cord with encroachment on the lateral recesses. Additionally, there appears be moderate left and milder right neural foraminal katia rowing. C5-6: The spondylosis mildly flattens the ventral cord at. There appears to be moderate to right and mild left foraminal narrowing. C6-7: The spondylosis and disc bulge effaces the ventral subarachnoid space with minimal encroachment on the ventral cord at. There is mild to moderate foraminal narrowing bilaterally. C7-T1: There is no disc protrusion or significant stenosis. PARASPINAL SOFT TISSUES: No significant abnormality. ADDITIONAL FINDINGS: No epidural collections are identified. The postcontrast imaging is particularly degraded by the degree of motion. However, no definitive intradural enhancing lesions are appreciate d. IMPRESSION: 1. The study is limited by motion. However, there are multilevel degenerative changes involving the c ervical spine with spondylosis and neural foraminal narrowing particularly from C4-5 to C6-7 as tenzin led above. Signer Name: Nate Craig MD Signed: 08/02/2021 3:16 PM Workstation Name: [email or web address]
--- NOTE | 2021-08-02 15:26 | Magnetic Resonance Report ---
MRI THORACIC SPINE WITHOUT CONTRAST INDICATION / CLINICAL INFORMATION: Back Pain Patient claustrophobic, patient motion, best possible exam.. TECHNIQUE: Multisequence, multiplanar images of the thoracic spine were obtained. COMPARISON: None available. FINDINGS: ALIGNMENT: There is mild kyphosis involving inferior thoracic spine without significant spondylolisth esis at. VERTEBRAE:There are advanced degenerative endplate changes anteriorly from T9 to T12 with notable laverne ma. There is no clear evidence of acute compression fracture. VISUALIZED SPINAL CORD: The motion degrades the image quality. However, the cervical spinal cord appe ars to demonstrate appropriate signal intensity on the combination of sequences. INTERVERTEBRAL DISCS: The broad-based disc bulges at T10-11 and T11-12 effaces the ventral subarachno id space without direct cord compression at. There appears be mild neural foraminal narrowing bilater ally at T10-11. There is no disc protrusion or significant central spinal stenosis involving remainin g thoracic segments at. The disc bulge and facet joint changes at T8-9 result in mild foraminal narro wing bilaterally. PARASPINAL SOFT TISSUES: No significant abnormality. ADDITIONAL FINDINGS: No definitive epidural collections are identified. IMPRESSION: 1. The study is limited by motion. However, there are multilevel advanced degenerative the disc morales es with mild kyphosis involving inferior thoracic spine as detailed above. Signer Name: Nate Craig MD Signed: 08/02/2021 3:21 PM Workstation Name: [id number]
[2021-08-03] MEDS: IPRATROPIUM 0.02% NEBU 2.5 ML IH SCH ×2 (00:19→10:19)
[2021-08-03] MEDS: HYDROmorphone 1 MG/1 ML INJ IV PRN (04:02)
[2021-08-03] MEDS: GABAPENTIN 400 MG CAP PO SCH ×3 (04:02→16:11)
[2021-08-03] MEDS: BENZONATATE 100 MG CAP PO SCH ×2 (07:04→14:58)
[2021-08-03] MEDS: LEVOTHYROXINE 100 MCG TAB PO SCH (07:04)
--- NOTE | 2021-08-03 07:24 | Discharge Summary ---
Providers - Providers Date of Admission: 07/31/21 15:05 Date of discharge: 08/03/21 Attending physician: ARMIN MAYS MD 07/31/21 Consult to Physician [CONS] Stat Comment: Consulting Provider: RACHEL DONALD Physician Instructions: Reason For Exam: suspected stroke 08/01/21 Consult to Physician [CONS] Routine Comment: Consulting Provider: ROBERT CRYSTAL Physician Instructions: Reason For Exam: CVA 08/01/21 00:01 Occupational Therapy Evaluate and Treat [CONS] Routine Comment: Reason For Exam: Neuro deficits Physical Therapy Evaluation and Treat [CONS] Routine Comment: Reason For Exam: Neuro deficits 08/02/21 13:16 Consult to Case Management [CONS] Routine Services Needed at Discharge: Home Health Services Notified:: case management Comment:: [facility] physical therapy and rolling walker. Primary care physician: DISABILITY COUNSELOR Hospitalization Condition: Stable Hospital course: History of present illness: 60-year-old female with history of asthma and hypothyroidism comes in for right- sided weakness since last night. Also severe headache since 6:30 AM this morning. Patient did not seek immediate medical attention. No diplopia. No nasal regurgitation of fluids. Patient had a TIA about 5 years ago. No residual deficits. Takes aspirin every day. Patient states that she is in a homeless residential and cannot afford the medication. ED course-patient had persistent right upper and right lower extremity weakness with mild right facial weakness because of the elapsed time patient is not a candidate for TPA Hospital course to date: 08/01: MRI and Carotid doppler pending. Will follow neuro recommendations. 08/02: MRI negative, Carotid doppler did not show clinically significant occlusions. Patient notes severe lower back pain. Given RUE and RLE weakness, Will obtain MRI of L spine and C spine MRI. Plan for potential d/c with [facility] +rolling walker given PT recs. 08/03: MR L- spine and C- spine show degenerative disc disease. Will discharge patient today with home health care and rolling walker. Advised patient to establish with a primary care physician CLEO so she can continue to be medically managed. She will be d/c home with rx for: Aspirin 81 mg p.o. daily, levothyroxine 200 mcg p.o. daily, atorvastatin 40 mg p.o. daily, ibuprofen 400 mg p.o. every 8 hour as needed for back pain (patient verified that she cannot take toradol or naprosyn due to allergy but ibuprofen is ok). Assessment and plan: - Patient Problems (1) Transient Ischemic Attack Clinical findings consistent with acute CVA, RUE and RLE weakness, rt facial droop. Initial imaging study: Head CT No acute findings Head CTA There is mild irregularity of the cerebral branches, including the A3 segment of the left MANUEL as detailed above which may reflect atherosclerotic disease. There is no CTA evidence of large vessel occlusion. 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 MRI Brain negative for acute findings echocardiogram: LVEF 65-70% High intensity statins A1c: 5.8 Physical therapy and Occupational Therapy Patient not a candidate for TPA because of the time elapsed Neurology consult C spine and L spine MRI;s ordered due to patient c/o lower back pain, RUE, RLE weakness and negative cva workup thus far. (2) HTN (hypertension) Patient says she is hypertensive but the blood pressure readings in the emergency room were normal and she is not on any blood pressure medicine Patient to be initiated on blood pressure medicine if necessary (3) Hyperlipidemia LDL 341 Continue statins (4) Hypothyroidism history of thyroidectomy due to thyroid CA. Continue Levoxyl at 200 mcg Check TSH (4) Back Pain - Ordered L spine MRI. (5) DVT prophylaxis On heparin and GI prophylaxis Disposition: 30 STILL A PATIENT Final Discharge Diagnosis (Prints w/discharge instructions): Transient Ischemic Attack Time spent for discharge: 35 Core Measure Documentation - Palliative Care Palliative Care/ Comfort Measures: Not Applicable - Core Measures Any of the following diagnoses?: none Exam - Physical Exam Narrative exam: Physical Exam: - Constitutional General appearance: comfortable - EENT EENT: Present: PERRL, mucous membranes moist - Respiratory Respiratory: Present: chest non-tender, lungs clear, rhonchi - Cardiovascular Cardiovascular: Present: regular rate, normal S1, normal S2 Extremities: Present: no peripheral edema bilatateraly, no clubbing, cyanosis - Gastrointestinal Gastrointestinal: Present: normoactive bowel sounds - Integumentary Integumentary: Present: normal - Neurologic Cranial nerve examination: PERRL, EOMI, intact Speech examination: intact Sensorimotor examination: intact Detailed motor examination: grossly full strength in, other (no sugnificant weakness but drop right arm with no clear pronator drift as well as give away weakness right leg, gate not done ) - Level of Consciousness 1a. Level of Consciousness: alert/keenly responsive - LOC Questions 1b. LOC Questions: answers both correctly - LOC Command 1c. LOC Commands: performs tasks correctly - Best Gaze 2. Best Gaze: normal - Visual 3. Visual: no visual loss - Facial Palsy 4. Facial Palsy: normal symmetrical movement - Motor Arm 5a. Motor Arm Left: no drift 5b. Motor Arm Right: no drift - Motor Leg 6a. Motor Leg Left: no drift 6b. Motor Leg Right: no drift - Limb Ataxia 7. Limb Ataxia: absent - Sensory 8. Sensory: normal - Best Language 9. Best Language: no aphasia - Dysarthria 10. Dysarthria: normal - Extinction and Inattention 11. Extinction/Inattention: no abnormality , she is with right upper and lower give away weakness but no clear cranial nerves abnormalities no clear pronator drift is noted - Constitutional Vitals: Temp Pulse Resp BP Pulse Ox 97.6 F 66 16 130/83 97 08/03/21 03:48 08/03/21 03:48 08/03/21 03:48 08/03/21 03:48 08/03/21 03:48 Plan Follow up with: PRIMARY CARE, [Primary Care Provider] - 7 Days Forms: Work/School Release Form Prescriptions: AtorvaSTATin [Lipitor] 80 mg PO QHS 30 Days #30 tablet Aspirin EC [Halfprin EC] 81 mg PO QDAY 30 Days #30 tab Ibuprofen [Motrin 400 MG tab] 400 mg PO Q8H PRN 30 Days #90 tablet PRN Reason: BACK PAIN Levothyroxine [Synthroid] 200 mcg PO DAILY@0600 30 Days #30 tablet Other Discharge Orders: Walker-Rolling (Amb) Location: None Selected
[2021-08-03] MEDS: FAMOTIDINE 20 MG/2 ML INJ IV SCH (09:47)
[2021-08-03] MEDS: NICOTINE 14 MG/24 HR PATCH TD SCH (09:47)
[2021-08-03] MEDS: oxyCODONE /ACETAMINOPHEN 5-325MG TAB PO PRN (09:47)
[2021-08-03] MEDS: ASPIRIN 325 MG TAB PO SCH (09:48)
[2021-08-03] MEDS: HEPARIN 5,000 UNIT/1 ML VIAL SUB-Q SCH (09:48)
[2021-08-03 17:12] VITALS: BP 126/83
== END 2021-08-03 16:28 | disposition home health service (06) | DRG 69 ==
LOC: ED 12:46 → 4A 15:05
PROVIDERS: ADMIT Internal Medicine; ATTEND Internal Medicine
DX: G45.9 Transient cerebral ischemic attack, unspecified (principal); G81.91 Hemiplegia, unspecified affecting right dominant side; R51.9 Headache, unspecified; I10 Essential (primary) hypertension; E03.9 Hypothyroidism, unspecified; J44.9 Chronic obstructive pulmonary disease, unspecified; E78.5 Hyperlipidemia, unspecified; F17.200 Nicotine dependence, unspecified, uncomplicated; Z82.49 Family history of ischemic heart disease and other diseases of the circulatory system; Z90.710 Acquired absence of both cervix and uterus; Z20.822 Contact with and (suspected) exposure to COVID-19
CPT/HCPCS: 36415; 70450; 70496; 70498; 70551; 72156; 72157; 80048; 80053; 80061; 82550; 82607; 82962; 83036; 84443; 84484; 85025; 85610; 85652; 85670; 85730; 86038; 86431; 87641; 90686; 93005; 93306; 93880; 94640; G0378; J3490; A9575; J1170; J1644; J2060; J2765; J3010; Q9967

== ENCOUNTER 2021-12-16 11:03 | Emergency (ER) | payer SELFPAY ==
[2021-12-16] MEDS ORDERED: dexAMETHasone 20 MG/5 ML VIAL IM STA (12:04)
[2021-12-16] MEDS ORDERED: FAMOTIDINE 20 MG TAB PO ONE (12:05)
[2021-12-16] MEDS ORDERED: CETIRIZINE 10 MG TAB PO ONE (12:05)
--- NOTE | 2021-12-16 12:17 | Emergency Department Report ---
ED Allergic Reaction HPI - General Chief complaint: Allergic Reaction Stated complaint: ALLERGIC RX TO MEDS/TONGUE SWELLING Time Seen by Provider: 12/16/21 11:53 Source: patient Mode of arrival: Ambulatory Limitations: No Limitations - History of Present Illness Initial Comments: CC: something got to me HPI: This is a 61-year-old female with history of COPD, UTI, hypertension, CVA,, hyperlipidemia, hypothyroidism who presents with allergic reaction. Patient's had swollen tongue, swollen eye lids, itchy throat for several weeks worse over the last several days. She suspects [id number] medication or ibuprofen may be the culprit. She has had seasonal allergies. MD Complaint: allergic reaction, facial swelling -: Gradual, week(s) (3 weeks) Symptoms: facial swelling, orolingual swelling Severity: mild, moderate Previous Allergy History: none - Related Data Home Medications Medication Instructions Recorded Confirmed Last Taken Amitriptyline [Elavil] 150 mg PO QHS 08/01/21 08/01/21 03/16/21 Previous Rx's Medication Instructions Recorded Last Taken Type Aspirin EC [Halfprin EC] 81 mg PO QDAY 30 Days #30 tab 08/03/21 Unknown Rx AtorvaSTATin [Lipitor] 80 mg PO QHS 30 Days #30 tablet 08/03/21 Unknown Rx Ibuprofen [Motrin 400 MG tab] 400 mg PO Q8H PRN 30 Days #90 08/03/21 Unknown Rx tablet Levothyroxine [Synthroid] 200 mcg PO DAILY@0600 30 Days #30 08/03/21 Unknown Rx tablet Cetirizine HCl [ZyrTEC 10mg cap] 10 mg PO DAILY 30 Days #30 cap 12/16/21 Unknown Rx Prednisone [predniSONE 10 mg 10 mg PO .TAPER #1 package 12/16/21 Unknown Rx (6-Day Pack, 21 Tabs)] Allergies Allergy/AdvReac Type Severity Reaction Status Date / Time azithromycin Allergy Severe Anaphylaxis Verified 08/01/21 10:06 cephalexin [From Keflex] Allergy Severe Anaphylaxis Verified 08/01/21 10:06 ketorolac [From Toradol] Allergy Severe Anaphylaxis Verified 08/01/21 10:06 levofloxacin [From Levaquin] Allergy Severe Anaphylaxis Verified 08/01/21 10:06 Penicillins Allergy Severe Anaphylaxis Verified 08/01/21 10:06 Sulfa (Sulfonamide Allergy Severe TONGUE Verified 08/01/21 10:06 Antibiotics) SWELLING tramadol [From Ultram] Allergy Severe Anaphylaxis Verified 08/01/21 10:06 morphine Allergy Vomiting Verified 08/01/21 10:06 naproxen Allergy EYE AND Verified 08/01/21 10:06 HAND SWELLING ED Review of Systems ROS: Stated complaint: ALLERGIC RX TO MEDS/TONGUE SWELLING Other details as noted in HPI Comment: All other systems reviewed and negative Constitutional: denies: chills, fever, malaise Respiratory: denies: cough, shortness of breath Cardiovascular: denies: chest pain Gastrointestinal: denies: abdominal pain, nausea, vomiting ED Past Medical Hx - Past Medical History Previous Medical History?: Yes Hx Hypertension: Yes Hx CVA: Yes (TIA) Hx Arthritis: Yes Hx Seizures: Yes (early 20s) Hx COPD: Yes Additional medical history: Hypothyroidism Degenrativr Disc Disease - Surgical History Past Surgical History?: Yes Additional Surgical History: hysterectomy - Family History Family history: other (noncontributory to this presentation) - Social History Smoking Status: Current Every Day Smoker Substance Use Type: None - Medications Home Medications: Home Medications Medication Instructions Recorded Confirmed Last Taken Type Amitriptyline [Elavil] 150 mg PO QHS 08/01/21 08/01/21 03/16/21 History Aspirin EC [Halfprin EC] 81 mg PO QDAY 30 Days #30 tab 08/03/21 Unknown Rx AtorvaSTATin [Lipitor] 80 mg PO QHS 30 Days #30 tablet 08/03/21 Unknown Rx Ibuprofen [Motrin 400 MG tab] 400 mg PO Q8H PRN 30 Days #90 08/03/21 Unknown Rx tablet Levothyroxine [Synthroid] 200 mcg PO DAILY@0600 30 Days #30 08/03/21 Unknown Rx tablet Cetirizine HCl [ZyrTEC 10mg cap] 10 mg PO DAILY 30 Days #30 cap 12/16/21 Unknown Rx Prednisone [predniSONE 10 mg 10 mg PO .TAPER #1 package 12/16/21 Unknown Rx (6-Day Pack, 21 Tabs)] ED Physical Exam - General Limitations: No Limitations General appearance: alert, in no apparent distress - Head Head exam: Present: atraumatic, normocephalic - Eye Eye exam: Present: normal appearance - ENT ENT exam: Present: mucous membranes moist - Neck Neck exam: Present: normal inspection, full ROM - Respiratory Respiratory exam: Present: normal lung sounds bilaterally. Absent: respiratory distress, wheezes, rales, rhonchi - Cardiovascular Cardiovascular Exam: Present: regular rate, normal rhythm, normal heart sounds. Absent: systolic murmur, diastolic murmur, rubs, gallop - GI/Abdominal GI/Abdominal exam: Present: soft, normal bowel sounds. Absent: distended, tenderness, guarding, rebound - Extremities Exam Extremities exam: Present: normal inspection - Neurological Exam Neurological exam: Present: alert, oriented X3 - Psychiatric Psychiatric exam: Present: normal affect, normal mood - Skin Skin exam: Present: warm, dry, intact, normal color. Absent: rash ED Course Vital Signs 12/16/21 11:44 Temperature 98.8 F Pulse Rate 77 Respiratory 16 Rate Blood Pressure 131/84 Blood Pressure 131/84 [Left] O2 Sat by Pulse 97 Oximetry ED Medical Decision Making - Medical Decision Making This is a 61-year-old female who presents with symptoms signs and symptoms of seasonal allergy versus allergic reaction to medication. Patient has normal exam. I do not detect tongue swelling. She has normal voice. I suspect allergic tinnitus more so. She insists on Solu-Medrol injection. I have given patient IM Decadron in emergency department. She was prescribed prednisone and cetirizine. In the emergency department she also received cetirizine and Pepcid. Critical care attestation.: If time is entered above; I have spent that time in minutes in the direct care of this critically ill patient, excluding procedure time. ED Disposition Clinical Impression: Allergic reaction Disposition: 01 HOME / SELF CARE / HOMELESS Is pt being admited?: No Does the pt Need Aspirin: No Condition: Stable Instructions: Allergies, Adult, Yjws-hx-Qhzz Prescriptions: Prednisone [predniSONE 10 mg (6-Day Pack, 21 Tabs)] 10 mg PO .TAPER #1 package Cetirizine HCl [ZyrTEC 10mg cap] 10 mg PO DAILY 30 Days #30 cap Referrals: MACHO CAM MD [Staff Physician] - 3-5 Days
[2021-12-16 12:42] VITALS: BP 129/86
== END 2021-12-16 12:41 | disposition home or self-care (01) ==
LOC: ED 11:03
DX: T78.40XA Allergy, unspecified, initial encounter (principal); I10 Essential (primary) hypertension; J44.9 Chronic obstructive pulmonary disease, unspecified; M19.90 Unspecified osteoarthritis, unspecified site; F17.200 Nicotine dependence, unspecified, uncomplicated; Z90.710 Acquired absence of both cervix and uterus; Z88.1 Allergy status to other antibiotic agents; Z88.0 Allergy status to penicillin; Z88.8 Allergy status to other drugs, medicaments and biological substances; Z88.2 Allergy status to sulfonamides; Z79.82 Long term (current) use of aspirin; Z79.899 Other long term (current) drug therapy; X58.XXXA Exposure to other specified factors, initial encounter
CPT/HCPCS: 96372; 99282; J1100

== ENCOUNTER 2022-01-16 12:19 | Emergency (ER) | payer SELFPAY ==
[2022-01-16] MEDS ORDERED: SODIUM CHLORIDE 0.9% 1000 ML 1,000 ML IV ONE ×2 (12:38→14:55)
--- NOTE | 2022-01-16 13:44 | XRay Report ---
CERVICAL SPINE 4 VIEWS INDICATION / CLINICAL INFORMATION: Weakness. COMPARISON: None available. FINDINGS: VERTEBRAE: No acute fracture. No significant malalignment. DISC SPACES / FACET JOINTS:Mild multilevel degenerative changes. PARASPINAL SOFT TISSUES:No significant abnormality. ADDITIONAL FINDINGS: None. Signer Name: Alli Velazquez MD Signed: 01/16/2022 1:40 PM Workstation Name: [email or web address] [id number]
[2022-01-16 13:53] LABS: Basophils # (Auto) 0.1 K/mm3 (0.0-0.1); Basophils % (Auto) 1.4 % (0.0-1.8); Eosinophils # (Auto) 0.2 K/mm3 (0.0-0.4); Eosinophils % (Auto) 2.5 % (0.0-4.3); Hematocrit 39.2 % (30.3-42.9); Hemoglobin 13.3 gm/dl (10.1-14.3); Lymphocytes # (Auto) 2.8 K/mm3 (1.2-5.4); Lymphocytes % (Auto) 35.2 % (13.4-35.0); Mean Corpuscular HGB Conc 34 % (30-34); Mean Corpuscular Volume 91 fl (79-97); Monocytes # (Auto) 0.4 K/mm3 (0.0-0.8); Monocytes % (Auto) 4.5 % (0.0-7.3); Platelet Count 179 K/mm3 (140-440)
--- NOTE | 2022-01-16 13:56 | XRay Report ---
CHEST 1 VIEW INDICATION / CLINICAL INFORMATION: Dyspnea. COMPARISON: 04/11/2021 FINDINGS: SUPPORT DEVICES: None. HEART / MEDIASTINUM: No significant abnormality. LUNGS / PLEURA: No significant pulmonary or pleural abnormality. No pneumothorax. ADDITIONAL FINDINGS: No significant additional findings. IMPRESSION: 1. No acute findings. Signer Name: Alli Velazquez MD Signed: 01/16/2022 1:51 PM Workstation Name: [email or web address] [id number]
[2022-01-16 14:22] LABS: Albumin 4.8 g/dL (3.9-5); Calcium 8.8 mg/dL (8.4-10.2)
[2022-01-16] MEDS ORDERED: ACETAMINOPHEN 500 MG TAB PO ONE (14:22)
[2022-01-16] MEDS ORDERED: POTASSIUM CHLORIDE ER 10 MEQ TAB PO ONE (14:25)
[2022-01-16 14:36] LABS: Chol/HDL Ratio 7.54 %
[2022-01-16 16:33] LABS: Bacteria,Urine 1+ /HPF (Negative); Bilirubin,Urine NEG (Negative); Blood,Urine NEG (Negative); Color,Urine Straw (Yellow); Protein,Urine <15 mg/dL mg/dL (Negative); Urobilinogen,Urine < 2.0 mg/dL (<2.0)
[2022-01-16 16:34] LABS: Amphetamine Screen,Urine Negative; Benzodiazepines Screen,Urine Negative; Cannabinoid Screen,Urine Negative; Cocaine Screen,Urine Negative; Methadone Screen,Urine Negative; Opiate Screen,Urine Negative
[2022-01-16 16:55] VITALS: BP 147/91
--- NOTE | 2022-01-16 17:30 | Emergency Department Report ---
- General Chief complaint: Weakness Stated complaint: NUMBNESS IN FACE/FEET Time Seen by Provider: 01/16/22 12:38 Source: patient, EMS Mode of arrival: Stretcher Limitations: No Limitations - History of Present Illness Initial comments: [place] bus stop, c/o weakness x1 day. thyroid ca remission. pt was dropped off at bus stop. no chest pain no osb MD Complaint: generalized weakness -: hour(s) Location: generalized Severity scale (0 -10): 7 Worsens with: none Associated Symptoms: denies: denies other symptoms, chest pain, confusion, dark stools - Related Data Home Medications Medication Instructions Recorded Confirmed Last Taken Amitriptyline [Elavil] 150 mg PO QHS 08/01/21 08/01/21 03/16/21 Previous Rx's Medication Instructions Recorded Last Taken Type Aspirin EC [Halfprin EC] 81 mg PO QDAY 30 Days #30 tab 08/03/21 Unknown Rx AtorvaSTATin [Lipitor] 80 mg PO QHS 30 Days #30 tablet 08/03/21 Unknown Rx Ibuprofen [Motrin 400 MG tab] 400 mg PO Q8H PRN 30 Days #90 08/03/21 Unknown Rx tablet Levothyroxine [Synthroid] 200 mcg PO DAILY@0600 30 Days #30 08/03/21 Unknown Rx tablet Cetirizine HCl [ZyrTEC 10mg cap] 10 mg PO DAILY 30 Days #30 cap 12/16/21 Unknown Rx Prednisone [predniSONE 10 mg 10 mg PO .TAPER #1 package 12/16/21 Unknown Rx (6-Day Pack, 21 Tabs)] Allergies Allergy/AdvReac Type Severity Reaction Status Date / Time azithromycin Allergy Severe Anaphylaxis Verified 01/16/22 12:24 cephalexin [From Keflex] Allergy Severe Anaphylaxis Verified 01/16/22 12:24 ketorolac [From Toradol] Allergy Severe Anaphylaxis Verified 01/16/22 12:24 levofloxacin [From Levaquin] Allergy Severe Anaphylaxis Verified 01/16/22 12:24 Penicillins Allergy Severe Anaphylaxis Verified 01/16/22 12:24 Sulfa (Sulfonamide Allergy Severe TONGUE Verified 01/16/22 12:24 Antibiotics) SWELLING tramadol [From Ultram] Allergy Severe Anaphylaxis Verified 01/16/22 12:24 morphine Allergy Vomiting Verified 01/16/22 12:24 naproxen Allergy EYE AND Verified 01/16/22 12:24 HAND SWELLING ED Review of Systems ROS: Stated complaint: NUMBNESS IN FACE/FEET Other details as noted in HPI Constitutional: denies: chills, fever Eyes: denies: eye pain, eye discharge, vision change ENT: denies: ear pain, throat pain Respiratory: denies: cough, shortness of breath, wheezing Cardiovascular: denies: chest pain, palpitations Endocrine: no symptoms reported Gastrointestinal: denies: abdominal pain, nausea, diarrhea Genitourinary: denies: urgency, dysuria, discharge Musculoskeletal: denies: back pain, joint swelling, arthralgia Skin: denies: rash, lesions Neurological: denies: headache, weakness, paresthesias Psychiatric: denies: anxiety, depression Hematological/Lymphatic: denies: easy bleeding, easy bruising ED Past Medical Hx - Past Medical History Hx Hypertension: Yes Hx CVA: Yes (TIA) Hx Arthritis: Yes Hx Seizures: Yes (early 20s) Hx COPD: Yes Additional medical history: Hypothyroidism Degenrativr Disc Disease - Surgical History Additional Surgical History: hysterectomy - Social History Smoking Status: Current Every Day Smoker Substance Use Type: None - Medications Home Medications: Home Medications Medication Instructions Recorded Confirmed Last Taken Type Amitriptyline [Elavil] 150 mg PO QHS 08/01/21 08/01/21 03/16/21 History Aspirin EC [Halfprin EC] 81 mg PO QDAY 30 Days #30 tab 08/03/21 Unknown Rx AtorvaSTATin [Lipitor] 80 mg PO QHS 30 Days #30 tablet 08/03/21 Unknown Rx Ibuprofen [Motrin 400 MG tab] 400 mg PO Q8H PRN 30 Days #90 08/03/21 Unknown Rx tablet Levothyroxine [Synthroid] 200 mcg PO DAILY@0600 30 Days #30 08/03/21 Unknown Rx tablet Cetirizine HCl [ZyrTEC 10mg cap] 10 mg PO DAILY 30 Days #30 cap 12/16/21 Unknown Rx Prednisone [predniSONE 10 mg 10 mg PO .TAPER #1 package 12/16/21 Unknown Rx (6-Day Pack, 21 Tabs)] ED Physical Exam - General Limitations: No Limitations General appearance: alert, in no apparent distress - Head Head exam: Present: atraumatic, normocephalic - Eye Eye exam: Present: normal appearance - ENT ENT exam: Present: mucous membranes moist - Neck Neck exam: Present: normal inspection - Respiratory Respiratory exam: Present: normal lung sounds bilaterally. Absent: respiratory distress - Cardiovascular Cardiovascular Exam: Present: regular rate, normal rhythm. Absent: systolic murmur, diastolic murmur, rubs, gallop - GI/Abdominal GI/Abdominal exam: Present: soft, normal bowel sounds - Extremities Exam Extremities exam: Present: normal inspection - Back Exam Back exam: Present: normal inspection - Neurological Exam Neurological exam: Present: alert, oriented X3 - Psychiatric Psychiatric exam: Present: normal affect, normal mood - Skin Skin exam: Present: warm, dry, intact, normal color. Absent: rash ED Course Vital Signs 01/16/22 01/16/22 01/16/22 12:23 13:46 14:00 Pulse Rate 69 64 65 Respiratory 20 17 Rate Blood Pressure Blood Pressure 164/104 [Left] O2 Sat by Pulse 96 100 98 Oximetry 01/16/22 01/16/22 01/16/22 14:16 14:30 14:46 Pulse Rate 67 60 60 Respiratory 13 15 14 Rate Blood Pressure 172/94 172/94 Blood Pressure [Left] O2 Sat by Pulse 98 98 98 Oximetry 01/16/22 01/16/22 01/16/22 15:30 16:46 16:55 Pulse Rate 59 L 60 Respiratory 14 15 Rate Blood Pressure 156/88 147/91 Blood Pressure [Left] O2 Sat by Pulse 98 97 100 Oximetry ED Medical Decision Making - Lab Data Result diagrams: 01/16/22 13:41 01/16/22 13:41 - Radiology Data Radiology results: report reviewed, image reviewed - Medical Decision Making working showed elevated ck and trop no chest pain Critical care attestation.: If time is entered above; I have spent that time in minutes in the direct care of this critically ill patient, excluding procedure time. ED Disposition Clinical Impression: Weakness, Elevated CK Disposition: 01 HOME / SELF CARE / HOMELESS Is pt being admited?: No Does the pt Need Aspirin: No Condition: Stable Instructions: Fatigue, Weakness Referrals: PRIMARY CARE, [Primary Care Provider] - 3-5 Days
--- NOTE | 2022-01-18 10:46 | Electrocardiograph Report ---
[facility] Test Date: 2022-01-16 Test Time: 18:01:57 Pat Name: LUCIE WILKERSON Department: Room: Gender: F [employer]: VIVIENNE : 1960 Requested By: LATONIA MEADE Order Number: [id number] Reading MD: Dwayne Melo Measurements Intervals [place] Rate: 61 P: 23 HI: 164 QRS: -12 QRSD: 84 T: -8 QT: 451 QTc: 453 Interpretive Statements Sinus rhythm Inferior infarct, old Probable anteroseptal infarct, old Compared to ECG 07/31/2021 13:53:05 No significant changes Electronically Signed On 01-18-2022 10:45:51 EDT by Dwayne Melo
== END 2022-01-16 19:14 | disposition home or self-care (01) ==
LOC: ED 12:19
DX: R53.1 Weakness (principal); R74.8 Abnormal levels of other serum enzymes; I10 Essential (primary) hypertension; M19.90 Unspecified osteoarthritis, unspecified site; J44.9 Chronic obstructive pulmonary disease, unspecified; F17.200 Nicotine dependence, unspecified, uncomplicated; Z90.710 Acquired absence of both cervix and uterus; Z88.0 Allergy status to penicillin; Z88.8 Allergy status to other drugs, medicaments and biological substances; Z79.899 Other long term (current) drug therapy
CPT/HCPCS: 36415; 71045; 72040; 80053; 80061; 80307; 81001; 82550; 83735; 84484; 85025; 93005; 96360; 96361; 99284; J7030